=== PATIENT | male | born 1965 | race Two or more races ===

== ENCOUNTER 2016-11-04 09:29 | Inpatient (IN) | payer OTHER ==
[2016-11-04 11:01] VITALS: BMI 23.7
--- NOTE | 2016-11-04 13:47 | HP ---
COWS - Scale Resting Pulse: 0= [place] 80 or Below Sweatin= Chills/Flushing Restless Observation: 3= Extraneous Movement Pupil Size: 0= Normal to Room Light Bone or Joint Aches: 2= Severe Diffuse Aches Runny Nose/ Eye Tearin= Runny Nose/Eyes GI Upset > 30mins: 2= Nausea/Diarrhea Tremor Observation: 2= Slight Tremor Visible Yawning Observation: 2= >3x During Session Anxiety or Irritability: 2=Irritable/Anxious Goose Flesh Skin: 3=Piloerection COWS Score: 19 Admission ROS S - HPI Chief Complaint: "I need to get myself together. I am not good in health." Pt. is here to Detox from Heroin. Allergies/Adverse Reactions: Allergies Allergy/AdvReac Type Severity Reaction Status Date / Time penicillin G Allergy Severe Rash Verified 11/04/16 12:23 History of Present Illness: Pt. is a 51 YO male here to Detox from Heroin. Pt. had a previous Detox admission at [facility] approx. 10 years ago. Exam Limitations: No Limitations - Ebola screening Have you traveled outside of the country in the last 21 days: No Have you had contact with anyone from an Ebola affected area: No Have you been sick,other than usual withdrawal symptoms: No Do you have a fever: No - Review of Systems Constitutional: Chills, Diaphoresis, Fever, Loss of Appetite, Malaise, Night Sweats, Changes in sleep, Unintentional Wgt. Loss (Lost approx. 15 lbs. over the last 1 month.) EENT: reports: Tearing, Nose Congestion, Sinus Pressure, Dental Problems ( Missing Several Teeth.) Respiratory: reports: No Symptoms reported Cardiac: reports: No Symptoms Reported GI: reports: Diarrhea, Nausea, Poor Appetite, Vomiting, Indigestion : reports: No Symptoms Reported Musculoskeletal: reports: Back Pain, Joint Pain, Muscle Pain, Joint Stiffness, Other (Fractured Rib, Left Side, approx. 4 weeks ago, was evaluated at [facility] ER.) Integumentary: reports: No Symptoms Reported Neuro: reports: Headache, Numbness (Fingertips of Right Hand.), Tingling ( Fingertips of Right Hand.), Tremors Endocrine: reports: No Symptoms Reported Hematology: reports: No Symptoms Reported Psychiatric: reports: Judgement Intact, Mood/Affect Appropiate, Orientated x3, Anxious, Depressed (And Anxiety.) Other Systems: Reviewed and Negative Patient History - Patient Medical History Hx Anemia: No Hx Asthma: Yes (On meds.) Hx Chronic Obstructive Pulmonary Disease (COPD): Yes (Bronchitis; On meds.) Hx Cancer: No Hx Cardiac Disorders: No Hx Congestive Heart Failure: No Hx Hypertension: No Hx Hypercholesterolemia: Yes (In past. No medication.) Hx Pacemaker: No HX Cerebrovascular Accident: No Hx Seizures: No Hx Dementia: No Hx Diabetes: No Hx Gastrointestinal Disorders: No Hx Liver Disease: No Hx Genitourinary Disorders: No Hx Sexually Transmitted Disorders: No Hx Renal Disease (ESRD): No Hx Thyroid Disease: No Hx Human Immunodeficiency Virus (HIV): No (Last Tested: 07/2015: NEGATIVE.) Hx Hepatitis C: No (Last Tested: 07/2015: NEGATIVE.) Hx Depression: Yes (On meds.) Hx Suicide Attempt: No (PATIENT DENIES CURRENT SI / HI.) Hx Bipolar Disorder: Yes (On meds.) Hx Schizophrenia: No - Patient Surgical History Past Surgical History: No Hx Neurologic Surgery: No Hx Cataract Extraction: No Hx Cardiac Surgery: No Hx Lung Surgery: No Hx Breast Surgery: No Hx Breast Biopsy: No Hx Abdominal Surgery: No Hx Appendectomy: No Hx Cholecystectomy: No Hx Genitourinary Surgery: No Hx Section: No Hx Orthopedic Surgery: No Anesthesia Reaction: Yes - PPD History Previous Implant?: Yes Documented Results: Negative w/o proof Implanted On Prior [facility] Admission?: No PPD to be Administered?: Yes - Reproductive History Patient is a Female of Child Bearing Age (11 -55 yrs old): No (PATIENT IS MALE.) - Smoking Cessation Smoking history: Current every day smoker Have you smoked in the past 12 months: Yes Aproximately how many cigarettes per day: 5 Cigars Per Day: 0 Hx Chewing Tobacco Use: No Initiated information on smoking cessation: Yes 'Breaking Loose' booklet given: 11/04/16 (GIVEN ON UNIT.) - Substance & Tx. History Hx Alcohol Use: No Hx Substance Use: Yes Substance Use Type: Heroin, Tranquilizers Hx Substance Use Treatment: Yes (1 Previous Detox admission at [facility], approx. 10 years ago.) - Substances Abused Heroin Route: Inhalation Frequency: Daily Amount used: 7-10 bags Age of first use: 14 Date of Last Use: 11/04/16 Xanax Route: Oral Frequency: 1-2 times per week Amount used: 2 mg. Age of first use: 50 Date of Last Use: 10/31/16 Family Disease History - Family Disease History Family Disease History: Diabetes: Brother, CA: Father (Colon Ca.), Mother ( Colon Ca.) Admission Physical Exam BHS - Vital Signs Vital Signs: Vital Signs - 24 hr 11/04/16 11:00 Temperature 96.2 F L Pulse Rate 53 L Respiratory 18 Rate Blood Pressure 143/79 - Physical General Appearance: Yes: Appropriately Dressed, Mild Distress, Thin, Tremorous, Anxious HEENTM: Yes: Hearing grossly Normal, Normocephalic, Normal Voice, REZA, Pharynx Normal Respiratory: Yes: Chest Non-Tender, No Respiratory Distress, Wheezing Neck: Yes: No masses,lesions,Nodules, Supple, Trachea in good position Breast: Yes: Breast Exam Deferred Cardiology: Yes: Regular Rhythm, Regular Rate, S1, S2 Abdominal: Yes: Normal Bowel Sounds, Non Tender, Flat, Soft Genitourinary: Yes: Within Normal Limits Back: Yes: Decreased Range of Motion, Vertebral Tenderness Musculoskeletal: Yes: Gait Steady, Back pain, Joint Stiffness, Muscle Pain Extremities: Yes: Tremors Neurological: Yes: Fully Oriented, Alert, Normal Mood/Affect, Normal Response Integumentary: Yes: Normal Color, Warm Lymphatic: Yes: Within Normal Limits - Diagnostic (1) Opioid dependence with withdrawal Current Visit: Yes Status: Acute (2) Nicotine dependence Current Visit: Yes Status: Chronic Qualifiers: Nicotine product type: cigarettes Substance use status: uncomplicated Qualified Code(s): F17.210 - Nicotine dependence, cigarettes, uncomplicated (3) Xanax use disorder, mild Current Visit: Yes Status: Chronic (4) COPD with chronic bronchitis Current Visit: Yes Status: Chronic (5) Bipolar disorder Current Visit: Yes Status: Chronic Qualifiers: Active/Remission status: remission status unspecified Qualified Code (s): F31.9 - Bipolar disorder, unspecified (6) Left rib fracture Current Visit: Yes Status: Acute Qualifiers: Encounter type: subsequent encounter Rib fracture type: single rib Fracture type: closed Fracture healing: with routine healing Qualified Code(s): S22.32XD - Fracture of one rib, left side, subsequent encounter for fracture with routine healing Cleared for Admission [facility] - Detox or Rehab [facility] Level of Care: Medically Managed Detox Regimen/Protocol: Methadone [facility] Breath Alcohol Content Breath Alcohol Content: 0 Urine Drug Screen - Results Drug Screen Negative: No Urine Drug Screen Results: OPI-Opiates
[2016-11-04] MEDS ORDERED: ACETAMINOPHEN 325 MG TABLET (FP) PO PRN (14:28)
[2016-11-04] MEDS ORDERED: MENTHOL/PHENOL 1 EACH UD MM PRN (14:28)
[2016-11-04] MEDS ORDERED: guaiFENesin/D-METHORPHAN HB 10 ML UNIT-DOSE CUPS PO PRN (14:28)
[2016-11-04] MEDS ORDERED: MAGNESIUM HYDROX 2400MG/30ML ORAL SUSPENSION 30 ML CUP PO PRN (14:28)
[2016-11-04] MEDS ORDERED: P-EPHED 60MG/TRIPROLIDI 2.5MG TABLET PO PRN (14:28)
[2016-11-04] MEDS ORDERED: LOPERAMIDE HCL 2 MG CAPSULE PO PRN (14:28)
[2016-11-04] MEDS ORDERED: MAGNESIUM CITRATE 300 ML BOTTLE PO PRN (14:28)
[2016-11-04] MEDS ORDERED: METHADONE HCL 10 MG TABLET (FOR DETOX USE ONLY) PO ONE ×2 (15:15→23:00)
[2016-11-04] MEDS: diazePAM 5 MG TABLET PO PRN ×2 (15:19→22:05)
[2016-11-04 17:55] LABS: HIV 1 & 2 AB NEGATIVE; HIV 1 AGp24 NEGATIVE
[2016-11-04 21:15] LABS: URINE APPEARANCE CLEAR; URINE BILIRUBIN NEGATIVE (NEGATIVE); URINE BLOOD NEGATIVE (NEGATIVE); URINE COLOR YELLOW; URINE GLUCOSE (UA) NEGATIVE (NEGATIVE); URINE KETONE NEGATIVE (NEGATIVE); URINE LEUK ESTERASE NEGATIVE (NEGATIVE); URINE NITRITE NEGATIVE (NEGATIVE); URINE PROTEIN NEGATIVE (NEGATIVE); URINE UROBILINOGEN NEGATIVE E.U./dl (0.2-1.0)
[2016-11-04] MEDS: ACLIDINIUM BROMIDE 400 MCG/INH AERO.POWD IH SCH (22:05)
[2016-11-04] MEDS: THIAMINE HCL 100 MG TABLET (FP) PO SCH (22:05)
[2016-11-04] MEDS: ALBUTEROL SO4 6.7 GM HFA INHALER IH PRN (22:07)
[2016-11-04] MEDS: NAPROXEN 250 MG TABLET (FP) PO SCH (22:08)
[2016-11-04] MEDS: MAG HYDROX/AL HYDROX/SIMETH 30 ML UNIT-DOSE CUP PO PRN (22:32)
[2016-11-04] MEDS: NICOTINE POLACRILEX 2 MG GUM BC PRN (22:33)
[2016-11-05] MEDS: diphenhydrAMINE HCL 50 MG CAPSULE PO PRN ×2 (01:06→23:23)
[2016-11-05] MEDS: diazePAM 5 MG TABLET PO PRN ×3 (08:04→22:04)
[2016-11-05] MEDS: NAPROXEN 250 MG TABLET (FP) PO SCH ×3 (08:05→23:24)
[2016-11-05] MEDS ORDERED: METHADONE HCL 10 MG TABLET (FOR DETOX USE ONLY) PO ONE (10:00)
--- NOTE | 2016-11-05 10:04 | PN ---
[facility] CIWA - CIWA Score Nausea/Vomitin-No Nausea/No Vomiting Muscle Tremors: 4-Moderate,w/Arms Extend Anxiety: 4-Mod. Anxious/Guarded Agitation: 4-Moderately Restless Paroxysmal Sweats: 1-Minimal Palms Moist Orientation: 0-Oriented Tacttile Disturbances: 3-Moderate Itch/Numb/Burn Auditory Disturbances: 0-None Visual Disturbances: 0-None Headache: 0-None Present CIWA-Ar Total Score: 16 BHS Progress Note (SOAP) Subjective: ANXIETY, SWEATS,STOMACH CRAMP, INTERMITTENT SLEEP Objective: 11/05/16 10:03 Vital Signs Temperature 97.7 F 11/05/16 09:35 Pulse Rate 77 11/05/16 09:35 Respiratory Rate 18 11/05/16 09:35 Blood Pressure 119/80 11/05/16 09:35 O2 Sat by Pulse Oximetry (%) Laboratory Last Values Urine Color Yellow 11/04/16 20:52 Urine Appearance Clear 11/04/16 20:52 Urine pH 5.0 (5.0-8.0) 11/04/16 20:52 Ur Specific [place] 1.025 (1.005-1.025) 11/04/16 20:52 Urine Protein Negative (NEGATIVE) 11/04/16 20:52 Urine Glucose (UA) Negative (NEGATIVE) 11/04/16 20:52 Urine Ketones Negative (NEGATIVE) 11/04/16 20:52 Urine Blood Negative (NEGATIVE) 11/04/16 20:52 Urine Nitrite Negative (NEGATIVE) 11/04/16 20:52 Urine Bilirubin Negative (NEGATIVE) 11/04/16 20:52 Urine Urobilinogen Negative E.U./dl (0.2-1.0) 11/04/16 20:52 Ur Leukocyte Esterase Negative (NEGATIVE) 11/04/16 20:52 HIV 1&2 Antibody Screen Negative 11/04/16 13:40 HIV P24 Antigen Negative 11/04/16 13:40 Assessment: 11/05/16 10:03 WITHDRAWAL SX Plan: CONTINUE DETOX
[2016-11-05] MEDS: ACLIDINIUM BROMIDE 400 MCG/INH AERO.POWD IH SCH ×2 (10:05→22:06)
[2016-11-05] MEDS: NICOTINE POLACRILEX 2 MG GUM BC PRN ×2 (10:06→20:15)
[2016-11-05] MEDS: PRENATAL VITAMINS W/ FOLIC ACID TABLET (FP) PO SCH (10:06)
[2016-11-05 10:07] LABS: MCH 30.1 pg (25.7-33.7); MCHC 32.5 g/dl (32.0-35.9); MEAN CELL VOLUME 92.6 fl (80-96); MEAN PLT VOLUME 9.5 fl (7.5-11.1); PLATELET COUNT 221 K/MM3 (134-434); RDW 14.2 % (11.9-15.9); WHITE BLOOD COUNT 6.6 K/mm3 (4.0-10.0)
[2016-11-05 10:55] LABS: ALBUMIN 4.1 g/dl (3.4-5.0); ALK PHOS 76 U/L (45-117); ANION GAP 9 (8-16); BILIRUBIN,TOTAL 0.7 mg/dL (0.2-1.0); CALCIUM 9.3 mg/dL (8.5-10.1); CO2 29 mmol/L (21-32); COCKROFT - GAULT 103.52; CREATININE 0.9 mg/dL (0.7-1.3); GLUCOSE,RANDOM 88 mg/dL (74-106); SGOT/AST 17 U/L (15-37); SGPT/ALT 20 U/L (12-78); TOT PROT 6.8 g/dl (6.4-8.2)
--- NOTE | 2016-11-05 11:46 | EKG ---
Test Reason : Blood Pressure : / mmHG Vent. Rate : 051 BPM Atrial Rate : 051 BPM P-R Int : 158 ms QRS Dur : 094 ms QT Int : 434 ms P-R-T Axes : 073 068 073 degrees QTc Int : 400 ms SINUS BRADYCARDIA WITH SINUS ARRHYTHMIA OTHERWISE NORMAL ECG NO PREVIOUS ECGS AVAILABLE Confirmed by JULI COVARRUBIAS, ARIANA ([id number]) on 11/05/2016 11:45:30 AM Referred By: Confirmed By:ARIANA BUSTOS MD
--- NOTE | 2016-11-05 12:07 | CONSULT ---
[facility] Psychiatric Consult - Data Date of interview: 11/05/16 Admission source: [facility] Identifying data: Readmission to [facility] for this 51 y/o male seeking detox treatment for heroin and xanax dependence.Patient is ,a father of two,homeless,unemployed and reportedly deprived of any source of income. Substance Abuse History: - Smoking Cessation. Smoking history: Current every day smoker. Have you smoked in the past 12 months: Yes. Aproximately how many cigarettes per day: 5. Cigars Per Day: 0. Hx Chewing Tobacco Use: No. Initiated information on smoking cessation: Yes. 'Breaking Loose' booklet given : 11/04/16 (GIVEN ON UNIT.). - Substance & Tx. History. Hx Alcohol Use: No. Hx Substance Use: Yes. Substance Use Type: Heroin, Tranquilizers. Hx Substance Use Treatment: Yes (1 Previous Detox admission at [facility], approx. 10 years ago.). - Substances Abused. Heroin. Route: Inhalation. Frequency: Daily. Amount used: 7-10 bags. Age of first use: 14. Date of Last Use: . Xanax. Route: Oral. Frequency: 1-2 times per week. Amount used: 2 mg. Age of first use: 50. Date of Last Use: 10/31/16. Confirmed by patient. Medical History: Bronchial asthma,COPD and hypercholesterolemia. Psychiatric History: Diagnosed with MDD/Anxiety Disorder and maintained on lexapro 20 mg/day + seroquel 100 mg/hs.Patient sees a psychiatrist at [facility].Mr Marley denies history of psychiatric hospitalizations.No report of suicide attempts. Physical/Sexual Abuse/Trauma History: Patient denies. Additional Comment: Urine Drug Screen Results: OPI-Opiates.Noted. Mental Status Exam - Mental Status Exam Alert and Oriented to: Time, Place, Person Cognitive Function: Good Patient Appearance: Well Groomed Mood: Hopeful, Euthymic Affect: Appropriate, Normal Range Patient Behavior: Fatigued, Appropriate, Cooperative Speech Pattern: Clear Voice Loudness: Normal Thought Process: Goal Oriented Thought Disorder: Not Present Hallucinations: Denies Suicidal Ideation: Denies Homicidal Ideation: Denies Insight/Judgement: Poor Sleep: Poorly, Difficulty falling asleep Appetite: Good Muscle strength/Tone: Normal Gait/Station: Normal Psychiatric Findings - Problem List ([place] 1, 2,3) (1) Opioid dependence with withdrawal Current Visit: Yes Status: Acute (2) Nicotine dependence Current Visit: Yes Status: Acute Qualifiers: Nicotine product type: cigarettes Substance use status: uncomplicated Qualified Code(s): F17.210 - Nicotine dependence, cigarettes, uncomplicated (3) Benzodiazepine dependence Current Visit: Yes Status: Acute (4) Substance induced mood disorder Current Visit: Yes Status: Acute (5) Depressive disorder Current Visit: Yes Status: Chronic (6) Left rib fracture Current Visit: Yes Status: Acute Qualifiers: Encounter type: subsequent encounter Rib fracture type: single rib Fracture type: closed Fracture healing: with routine healing Qualified Code(s): S22.32XD - Fracture of one rib, left side, subsequent encounter for fracture with routine healing (7) COPD with chronic bronchitis Current Visit: Yes Status: Chronic (8) Insomnia Current Visit: Yes Status: Acute - Initial Treatment Plan Initial Treatment Plan: Psychoeducation.Detoxification.Medications : seroquel 100 mg po hs + lexapro 20 mg po daily.Side effects/benefits discussed with patient.He agrees with careplan.Observation.
[2016-11-05] MEDS: VITAMINS A AND D TOPICAL OINTMENT 60 GM TUBE TP SCH ×2 (15:18→22:05)
[2016-11-05] MEDS: MAG HYDROX/AL HYDROX/SIMETH 30 ML UNIT-DOSE CUP PO PRN (17:11)
[2016-11-05] MEDS: THIAMINE HCL 100 MG TABLET (FP) PO SCH (22:05)
[2016-11-06] MEDS: diazePAM 5 MG TABLET PO PRN ×4 (03:21→22:26)
[2016-11-06] MEDS: NAPROXEN 250 MG TABLET (FP) PO SCH ×4 (05:24→22:28)
[2016-11-06] MEDS: NICOTINE POLACRILEX 2 MG GUM BC PRN ×4 (05:42→23:08)
[2016-11-06] MEDS ORDERED: CYCLOBENZAPRINE HCL 10 MG TABLET (FP) PO ONE (09:41)
--- NOTE | 2016-11-06 09:47 | PN ---
S COWS - Scale Resting Pulse: 0= [place] 80 or Below Sweatin= Chills/Flushing Restless Observation: 3= Extraneous Movement Pupil Size: 1= Pupils >than Normal Bone or Joint Aches: 2= Severe Diffuse Aches Runny Nose/ Eye Tearin= Nasal Congestion GI Upset > 30mins: 3= Vomiting/Diarrhea Tremor Observation of Outstretched Hands: 2= Slight Tremor Visible Yawning Observation: 1= 1-2x During Session Anxiety or Irritability: 2=Irritable/Anxious Goose Flesh Skin: 0=Smooth Skin COWS Score: 16 BHS Progress Note (SOAP) Subjective: ALERT,IRRITABLE,ANXIOUS,INTERRUPTED SLEEP,TREMOR,PAIN IN THE BODY AND BACK Objective: 11/06/16 09:45 Vital Signs Temperature 97.9 F 11/06/16 09:21 Pulse Rate 62 11/06/16 09:21 Respiratory Rate 18 11/06/16 09:21 Blood Pressure 134/84 11/06/16 09:21 O2 Sat by Pulse Oximetry (%) 11/06/16 09:47 Laboratory Last Values WBC 6.6 K/mm3 (4.0-10.0) 11/05/16 06:00 RBC 4.40 M/mm3 (4.00-5.60) 11/05/16 06:00 Hgb 13.2 GM/dL (11.7-16.9) 11/05/16 06:00 Hct 40.7 % (35.4-49) 11/05/16 06:00 MCV 92.6 fl (80-96) 11/05/16 06:00 MCHC 32.5 g/dl (32.0-35.9) 11/05/16 06:00 RDW 14.2 % (11.9-15.9) 11/05/16 06:00 Plt Count 221 K/MM3 (134-434) 11/05/16 06:00 MPV 9.5 fl (7.5-11.1) 11/05/16 06:00 Sodium 143 mmol/L (136-145) 11/05/16 06:00 Potassium 4.2 mmol/L (3.5-5.1) 11/05/16 06:00 Chloride 105 mmol/L (98-107) 11/05/16 06:00 Carbon Dioxide 29 mmol/L (21-32) 11/05/16 06:00 Anion Gap 9 (8-16) 11/05/16 06:00 BUN 16 mg/dL (7-18) 11/05/16 06:00 Creatinine 0.9 mg/dL (0.7-1.3) 11/05/16 06:00 Creat Clearance w eGFR > 60 (>60) 11/05/16 06:00 Random Glucose 88 mg/dL (74-106) 11/05/16 06:00 Calcium 9.3 mg/dL (8.5-10.1) 11/05/16 06:00 Total Bilirubin 0.7 mg/dL (0.2-1.0) 11/05/16 06:00 AST 17 U/L (15-37) 11/05/16 06:00 ALT 20 U/L (12-78) 11/05/16 06:00 Alkaline Phosphatase 76 U/L (45-117) 11/05/16 06:00 Total Protein 6.8 g/dl (6.4-8.2) 11/05/16 06:00 Albumin 4.1 g/dl (3.4-5.0) 11/05/16 06:00 Urine Color Yellow 11/04/16 20:52 Urine Appearance Clear 11/04/16 20:52 Urine pH 5.0 (5.0-8.0) 11/04/16 20:52 Ur Specific [place] 1.025 (1.005-1.025) 11/04/16 20:52 Urine Protein Negative (NEGATIVE) 11/04/16 20:52 Urine Glucose (UA) Negative (NEGATIVE) 11/04/16 20:52 Urine Ketones Negative (NEGATIVE) 11/04/16 20:52 Urine Blood Negative (NEGATIVE) 11/04/16 20:52 Urine Nitrite Negative (NEGATIVE) 11/04/16 20:52 Urine Bilirubin Negative (NEGATIVE) 11/04/16 20:52 Urine Urobilinogen Negative E.U./dl (0.2-1.0) 11/04/16 20:52 Ur Leukocyte Esterase Negative (NEGATIVE) 11/04/16 20:52 RPR Titer Nonreactive (NONREACTIVE) 11/05/16 06:00 Hepatitis C Antibody <0.1 s/co ratio (0.0-0.9) 11/04/16 14:30 HIV 1&2 Antibody Screen Negative 11/04/16 13:40 HIV P24 Antigen Negative 11/04/16 13:40 Assessment: 11/06/16 09:46 WITHDRAWAL SYMPTOM 11/06/16 09:47 Plan: CONTINUE DETOX
[2016-11-06] MEDS ORDERED: METHADONE HCL 5 MG TABLET (FOR DETOX USE ONLY) PO ONE (10:00)
[2016-11-06] MEDS: PRENATAL VITAMINS W/ FOLIC ACID TABLET (FP) PO SCH (10:11)
[2016-11-06] MEDS: ACLIDINIUM BROMIDE 400 MCG/INH AERO.POWD IH SCH ×2 (10:11→22:27)
[2016-11-06] MEDS: VITAMINS A AND D TOPICAL OINTMENT 60 GM TUBE TP SCH ×2 (10:11→22:27)
[2016-11-06] MEDS: cloNIDine HCL 0.1 MG TABLET PO SCH ×2 (10:11→22:26)
[2016-11-06] MEDS: ALBUTEROL SO4 6.7 GM HFA INHALER IH PRN (10:12)
[2016-11-06] MEDS: LIDOCAINE 5% TOPICAL PATCH TP SCH (12:31)
[2016-11-06] MEDS: ESCITALOPRAM OXALATE 20 MG TABLET (FP) PO SCH (12:31)
[2016-11-06] MEDS: QUEtiapine FUMARATE 100 MG TABLET (FP) PO SCH (22:26)
[2016-11-06] MEDS: THIAMINE HCL 100 MG TABLET (FP) PO SCH (22:27)
[2016-11-06] MEDS: LIDOCAINE PATCH REMOVAL MC SCH (22:29)
[2016-11-07] MEDS: NAPROXEN 250 MG TABLET (FP) PO SCH ×3 (05:56→22:15)
[2016-11-07] MEDS ORDERED: METHADONE HCL 5 MG TABLET (FOR DETOX USE ONLY) PO ONE (10:00)
[2016-11-07] MEDS: cloNIDine HCL 0.1 MG TABLET PO SCH ×2 (10:05→22:16)
[2016-11-07] MEDS: ESCITALOPRAM OXALATE 20 MG TABLET (FP) PO SCH (10:05)
[2016-11-07] MEDS: LIDOCAINE 5% TOPICAL PATCH TP SCH (10:06)
[2016-11-07] MEDS: ACLIDINIUM BROMIDE 400 MCG/INH AERO.POWD IH SCH ×2 (10:06→22:16)
[2016-11-07] MEDS: VITAMINS A AND D TOPICAL OINTMENT 60 GM TUBE TP SCH ×2 (10:06→22:16)
[2016-11-07] MEDS: PRENATAL VITAMINS W/ FOLIC ACID TABLET (FP) PO SCH (10:06)
[2016-11-07] MEDS: ALBUTEROL SO4 6.7 GM HFA INHALER IH PRN (10:09)
[2016-11-07] MEDS: NICOTINE POLACRILEX 2 MG GUM BC PRN ×2 (10:09→14:58)
--- NOTE | 2016-11-07 11:20 | PN ---
BHS Progress Note (SOAP) Subjective: Anxious, Body aches, Stomach Cramping, Diarrhea, Tremors, H/A, Sweating. Objective: PT. A & O X 2 (DISORIENTED ABOUT DAY / DATE). PT. OBSERVED AMBULATING ON UNIT. 11/07/16 11:19 Vital Signs Temperature 98.9 F 11/07/16 09:04 Pulse Rate 54 L 11/07/16 09:04 Respiratory Rate 18 11/07/16 09:04 Blood Pressure 114/70 11/07/16 09:04 O2 Sat by Pulse Oximetry (%) Laboratory Tests 11/04/16 11/04/16 11/04/16 13:40 14:30 20:52 WBC RBC Hgb Hct MCV MCHC RDW Plt Count MPV Sodium Potassium Chloride Carbon Dioxide Anion Gap BUN Creatinine Creat Clearance w eGFR Random Glucose Calcium Total Bilirubin AST ALT Alkaline Phosphatase Total Protein Albumin Urine Color Yellow Urine Appearance Clear Urine pH 5.0 Ur Specific [place] 1.025 Urine Protein Negative Urine Glucose (UA) Negative Urine Ketones Negative Urine Blood Negative Urine Nitrite Negative Urine Bilirubin Negative Urine Urobilinogen Negative Ur Leukocyte Esterase Negative RPR Titer Hepatitis C Antibody <0.1 HIV 1&2 Antibody Screen Negative HIV P24 Antigen Negative 11/05/16 11/05/16 11/05/16 06:00 06:00 06:00 WBC 6.6 RBC 4.40 Hgb 13.2 Hct 40.7 MCV 92.6 MCHC 32.5 RDW 14.2 Plt Count 221 MPV 9.5 Sodium 143 Potassium 4.2 Chloride 105 Carbon Dioxide 29 Anion Gap 9 BUN 16 Creatinine 0.9 Creat Clearance w eGFR > 60 Random Glucose 88 Calcium 9.3 Total Bilirubin 0.7 AST 17 ALT 20 Alkaline Phosphatase 76 Total Protein 6.8 Albumin 4.1 Urine Color Urine Appearance Urine pH Ur Specific [place] Urine Protein Urine Glucose (UA) Urine Ketones Urine Blood Urine Nitrite Urine Bilirubin Urine Urobilinogen Ur Leukocyte Esterase RPR Titer Nonreactive Hepatitis C Antibody HIV 1&2 Antibody Screen HIV P24 Antigen LABS NOTED. Assessment: 11/07/16 11:19 WITHDRAWAL SYMPTOMS. Plan: CONTINUE DETOX.
[2016-11-07] MEDS: TETRAHYDROZOLINE HCL 1 DROP DROPS OU PRN ×3 (12:32→22:16)
[2016-11-07] MEDS: THIAMINE HCL 100 MG TABLET (FP) PO SCH (22:15)
[2016-11-07] MEDS: QUEtiapine FUMARATE 100 MG TABLET (FP) PO SCH (22:16)
[2016-11-07] MEDS: CYCLOBENZAPRINE HCL 10 MG TABLET (FP) PO PRN (22:16)
[2016-11-07] MEDS: LIDOCAINE PATCH REMOVAL MC SCH (22:17)
[2016-11-08] MEDS: NAPROXEN 250 MG TABLET (FP) PO SCH ×3 (05:46→22:11)
[2016-11-08] MEDS ORDERED: METHADONE HCL 10 MG TABLET (FOR DETOX USE ONLY) PO ONE (10:00)
[2016-11-08] MEDS: ACLIDINIUM BROMIDE 400 MCG/INH AERO.POWD IH SCH ×2 (10:11→22:13)
[2016-11-08] MEDS: TETRAHYDROZOLINE HCL 1 DROP DROPS OU PRN ×2 (10:11→22:12)
[2016-11-08] MEDS: VITAMINS A AND D TOPICAL OINTMENT 60 GM TUBE TP SCH ×2 (10:11→22:21)
[2016-11-08] MEDS: cloNIDine HCL 0.1 MG TABLET PO SCH ×2 (10:12→22:11)
[2016-11-08] MEDS: PRENATAL VITAMINS W/ FOLIC ACID TABLET (FP) PO SCH (10:12)
[2016-11-08] MEDS: ESCITALOPRAM OXALATE 20 MG TABLET (FP) PO SCH (10:12)
[2016-11-08] MEDS: LIDOCAINE 5% TOPICAL PATCH TP SCH (10:15)
[2016-11-08] MEDS ORDERED: ONDANSETRON *ODT* 4 MG TABLET SL PRN (10:30)
[2016-11-08] MEDS ORDERED: ONDANSETRON *ODT* 4 MG TABLET SL ONE (10:30)
--- NOTE | 2016-11-08 10:35 | PN ---
S Progress Note (SOAP) Subjective: C/O nausea and vomited earlier Objective: 11/08/16 10:33 Vital Signs - 8 hr 11/08/16 11/08/16 11/08/16 03:30 06:12 09:15 Temperature 97 F L 97.5 F L Pulse Rate 48 L 64 Respiratory 18 16 18 Rate Blood Pressure 123/75 112/73 Laboratory Last Values WBC 6.6 K/mm3 (4.0-10.0) 11/05/16 06:00 RBC 4.40 M/mm3 (4.00-5.60) 11/05/16 06:00 Hgb 13.2 GM/dL (11.7-16.9) 11/05/16 06:00 Hct 40.7 % (35.4-49) 11/05/16 06:00 MCV 92.6 fl (80-96) 11/05/16 06:00 MCHC 32.5 g/dl (32.0-35.9) 11/05/16 06:00 RDW 14.2 % (11.9-15.9) 11/05/16 06:00 Plt Count 221 K/MM3 (134-434) 11/05/16 06:00 MPV 9.5 fl (7.5-11.1) 11/05/16 06:00 Sodium 143 mmol/L (136-145) 11/05/16 06:00 Potassium 4.2 mmol/L (3.5-5.1) 11/05/16 06:00 Chloride 105 mmol/L (98-107) 11/05/16 06:00 Carbon Dioxide 29 mmol/L (21-32) 11/05/16 06:00 Anion Gap 9 (8-16) 11/05/16 06:00 BUN 16 mg/dL (7-18) 11/05/16 06:00 Creatinine 0.9 mg/dL (0.7-1.3) 11/05/16 06:00 Creat Clearance w eGFR > 60 (>60) 11/05/16 06:00 Random Glucose 88 mg/dL (74-106) 11/05/16 06:00 Calcium 9.3 mg/dL (8.5-10.1) 11/05/16 06:00 Total Bilirubin 0.7 mg/dL (0.2-1.0) 11/05/16 06:00 AST 17 U/L (15-37) 11/05/16 06:00 ALT 20 U/L (12-78) 11/05/16 06:00 Alkaline Phosphatase 76 U/L (45-117) 11/05/16 06:00 Total Protein 6.8 g/dl (6.4-8.2) 11/05/16 06:00 Albumin 4.1 g/dl (3.4-5.0) 11/05/16 06:00 Urine Color Yellow 11/04/16 20:52 Urine Appearance Clear 11/04/16 20:52 Urine pH 5.0 (5.0-8.0) 11/04/16 20:52 Ur Specific [place] 1.025 (1.005-1.025) 11/04/16 20:52 Urine Protein Negative (NEGATIVE) 11/04/16 20:52 Urine Glucose (UA) Negative (NEGATIVE) 11/04/16 20:52 Urine Ketones Negative (NEGATIVE) 11/04/16 20:52 Urine Blood Negative (NEGATIVE) 11/04/16 20:52 Urine Nitrite Negative (NEGATIVE) 11/04/16 20:52 Urine Bilirubin Negative (NEGATIVE) 11/04/16 20:52 Urine Urobilinogen Negative E.U./dl (0.2-1.0) 11/04/16 20:52 Ur Leukocyte Esterase Negative (NEGATIVE) 11/04/16 20:52 RPR Titer Nonreactive (NONREACTIVE) 11/05/16 06:00 Hepatitis C Antibody <0.1 s/co ratio (0.0-0.9) 11/04/16 14:30 HIV 1&2 Antibody Screen Negative 11/04/16 13:40 HIV P24 Antigen Negative 11/04/16 13:40 labs noted Assessment: 11/08/16 10:34 Withdrawal sx. Plan: Continue detox
[2016-11-08] MEDS: NICOTINE POLACRILEX 2 MG GUM BC PRN (18:58)
[2016-11-08] MEDS: THIAMINE HCL 100 MG TABLET (FP) PO SCH (22:10)
[2016-11-08] MEDS: QUEtiapine FUMARATE 100 MG TABLET (FP) PO SCH (22:11)
[2016-11-08] MEDS: CYCLOBENZAPRINE HCL 10 MG TABLET (FP) PO PRN (22:11)
[2016-11-08] MEDS: LIDOCAINE PATCH REMOVAL MC SCH (22:13)
[2016-11-09] MEDS ORDERED: METHADONE HCL 5 MG TABLET (FOR DETOX USE ONLY) PO ONE (06:00)
[2016-11-09] MEDS: MAG HYDROX/AL HYDROX/SIMETH 30 ML UNIT-DOSE CUP PO PRN (06:04)
[2016-11-09] MEDS: PRENATAL VITAMINS W/ FOLIC ACID TABLET (FP) PO SCH (10:11)
[2016-11-09] MEDS: ACLIDINIUM BROMIDE 400 MCG/INH AERO.POWD IH SCH (10:11)
[2016-11-09] MEDS: cloNIDine HCL 0.1 MG TABLET PO SCH (10:12)
[2016-11-09] MEDS: LIDOCAINE 5% TOPICAL PATCH TP SCH (10:12)
[2016-11-09] MEDS: ESCITALOPRAM OXALATE 20 MG TABLET (FP) PO SCH (10:12)
[2016-11-09] MEDS: VITAMINS A AND D TOPICAL OINTMENT 60 GM TUBE TP SCH (10:13)
[2016-11-09 10:17] VITALS: BP 107/67; PULSE 66; TEMP 97.8
--- NOTE | 2016-11-09 10:28 | DS ---
[facility] Detox Discharge Summary Admission Date: 11/04/16 Discharge Date: 11/09/16 - History Present History: Alcohol Dependence, Opioid Dependence Pertinent Past History: COPD w/ chronic bronchitis, left rib fracture - Physical Exam Results Vital Signs: Vital Signs Temperature 97.8 F 11/09/16 10:16 Pulse Rate 66 11/09/16 10:16 Respiratory Rate 18 11/09/16 10:16 Blood Pressure 107/67 11/09/16 10:16 O2 Sat by Pulse Oximetry (%) Pertinent Admission Physical Exam Findings: withdrawal sx Laboratory Last Values WBC 6.6 K/mm3 (4.0-10.0) 11/05/16 06:00 RBC 4.40 M/mm3 (4.00-5.60) 11/05/16 06:00 Hgb 13.2 GM/dL (11.7-16.9) 11/05/16 06:00 Hct 40.7 % (35.4-49) 11/05/16 06:00 MCV 92.6 fl (80-96) 11/05/16 06:00 MCHC 32.5 g/dl (32.0-35.9) 11/05/16 06:00 RDW 14.2 % (11.9-15.9) 11/05/16 06:00 Plt Count 221 K/MM3 (134-434) 11/05/16 06:00 MPV 9.5 fl (7.5-11.1) 11/05/16 06:00 Sodium 143 mmol/L (136-145) 11/05/16 06:00 Potassium 4.2 mmol/L (3.5-5.1) 11/05/16 06:00 Chloride 105 mmol/L (98-107) 11/05/16 06:00 Carbon Dioxide 29 mmol/L (21-32) 11/05/16 06:00 Anion Gap 9 (8-16) 11/05/16 06:00 BUN 16 mg/dL (7-18) 11/05/16 06:00 Creatinine 0.9 mg/dL (0.7-1.3) 11/05/16 06:00 Creat Clearance w eGFR > 60 (>60) 11/05/16 06:00 Random Glucose 88 mg/dL (74-106) 11/05/16 06:00 Calcium 9.3 mg/dL (8.5-10.1) 11/05/16 06:00 Total Bilirubin 0.7 mg/dL (0.2-1.0) 11/05/16 06:00 AST 17 U/L (15-37) 11/05/16 06:00 ALT 20 U/L (12-78) 11/05/16 06:00 Alkaline Phosphatase 76 U/L (45-117) 11/05/16 06:00 Total Protein 6.8 g/dl (6.4-8.2) 11/05/16 06:00 Albumin 4.1 g/dl (3.4-5.0) 11/05/16 06:00 Urine Color Yellow 11/04/16 20:52 Urine Appearance Clear 11/04/16 20:52 Urine pH 5.0 (5.0-8.0) 11/04/16 20:52 Ur Specific [place] 1.025 (1.005-1.025) 11/04/16 20:52 Urine Protein Negative (NEGATIVE) 11/04/16 20:52 Urine Glucose (UA) Negative (NEGATIVE) 11/04/16 20:52 Urine Ketones Negative (NEGATIVE) 11/04/16 20:52 Urine Blood Negative (NEGATIVE) 11/04/16 20:52 Urine Nitrite Negative (NEGATIVE) 11/04/16 20:52 Urine Bilirubin Negative (NEGATIVE) 11/04/16 20:52 Urine Urobilinogen Negative E.U./dl (0.2-1.0) 11/04/16 20:52 Ur Leukocyte Esterase Negative (NEGATIVE) 11/04/16 20:52 RPR Titer Nonreactive (NONREACTIVE) 11/05/16 06:00 Hepatitis C Antibody <0.1 s/co ratio (0.0-0.9) 11/04/16 14:30 HIV 1&2 Antibody Screen Negative 11/04/16 13:40 HIV P24 Antigen Negative 11/04/16 13:40 labs noted - Treatment Hospital Course: Detox Protocol Followed, Detoxed Safely, Responded well, Discharged Condition Good - Medication Discharge Medications: Ambulatory Orders Albuterol Sulfate Inhaler - [Ventolin Hfa Inhaler -] 2 inh PO Q4H PRN 11/04/16 Escitalopram Oxalate [Lexapro -] 20 mg PO DAILY 11/04/16 Ipratropium [place] [Atrovent Hfa] 1 inh IH BID 11/04/16 Naproxen [Naprosyn -] 250 mg PO TID 11/04/16 Quetiapine Fumarate [Seroquel] 100 mg PO HS 11/04/16 - Diagnosis (1) Benzodiazepine dependence Current Visit: Yes Status: Acute (2) Nicotine dependence Current Visit: Yes Status: Acute Qualifiers: Nicotine product type: cigarettes Substance use status: uncomplicated Qualified Code(s): F17.210 - Nicotine dependence, cigarettes, uncomplicated (3) Opioid dependence with withdrawal Current Visit: Yes Status: Acute (4) Substance induced mood disorder Current Visit: Yes Status: Acute (5) Bipolar disorder Current Visit: Yes Status: Chronic Qualifiers: Active/Remission status: remission status unspecified Qualified Code (s): F31.9 - Bipolar disorder, unspecified (6) COPD with chronic bronchitis Current Visit: Yes Status: Chronic (7) Depressive disorder Current Visit: Yes Status: Chronic - AMA Did Patient Leave Against Medical Advice: No
== END 2016-11-09 11:00 | disposition other institution (70) | DRG 773 ==
LOC: YASAS 09:29 → Y3N 14:13
PROVIDERS: ADMIT Internal Medicine; ATTEND Internal Medicine
PROC: HZ2ZZZZ Detoxification Services for Substance Abuse Treatment (ICD-10-PCS; principal; 2016-11-04)
DX: F11.23 Opioid dependence with withdrawal (principal); F13.20 Sedative, hypnotic or anxiolytic dependence, uncomplicated; F17.210 Nicotine dependence, cigarettes, uncomplicated; F19.24 Other psychoactive substance dependence with psychoactive substance-induced mood disorder; F32.9 Major depressive disorder, single episode, unspecified; F31.9 Bipolar disorder, unspecified; J45.909 Unspecified asthma, uncomplicated; J44.9 Chronic obstructive pulmonary disease, unspecified; G47.00 Insomnia, unspecified; Z87.81 Personal history of (healed) traumatic fracture; Z59.0 Homelessness
CPT/HCPCS: 36415; 80053; 81003; 85027; 86593; 86803; 87389; 93005; 93010

== ENCOUNTER 2016-11-09 11:05 | Inpatient (IN) | payer OTHER ==
[2016-11-09] MEDS ORDERED: hydrOXYzine PAMOATE 50 MG CAPSULE (FP) PO PRN (15:00)
[2016-11-09] MEDS ORDERED: MAGNESIUM HYDROX 2400MG/30ML ORAL SUSPENSION 30 ML CUP PO PRN (15:00)
[2016-11-09] MEDS ORDERED: MAGNESIUM CITRATE 300 ML BOTTLE PO PRN (15:00)
[2016-11-09] MEDS ORDERED: IBUPROFEN 400 MG TABLET (FP) PO PRN (15:00)
[2016-11-09] MEDS ORDERED: ACETAMINOPHEN 325 MG TABLET (FP) PO PRN (15:00)
[2016-11-09] MEDS ORDERED: diphenhydrAMINE HCL 50 MG CAPSULE PO PRN (15:00)
[2016-11-09] MEDS ORDERED: guaiFENesin/D-METHORPHAN HB 10 ML UNIT-DOSE CUPS PO PRN (15:00)
[2016-11-09] MEDS ORDERED: P-EPHED 60MG/TRIPROLIDI 2.5MG TABLET PO PRN (15:00)
[2016-11-09] MEDS ORDERED: MENTHOL/PHENOL 1 EACH UD MM PRN (15:00)
[2016-11-09] MEDS ORDERED: ALBUTEROL SO4 6.7 GM HFA INHALER IH PRN (15:01)
[2016-11-09] MEDS: ESCITALOPRAM OXALATE 20 MG TABLET (FP) PO SCH (15:04)
[2016-11-09] MEDS ORDERED: PT OWN MED DRAWER 7, Y5N ONE (20:05)
[2016-11-09] MEDS: QUEtiapine FUMARATE 100 MG TABLET (FP) PO SCH (21:37)
[2016-11-09] MEDS: THIAMINE HCL 100 MG TABLET (FP) PO SCH (21:37)
[2016-11-09] MEDS: BUDESONIDE/FORMETEROL FUMARATE 160/4.5 mcg INHALER IH SCH (21:38)
[2016-11-09] MEDS: NAPROXEN 250 MG TABLET (FP) PO SCH (21:42)
[2016-11-09] MEDS: MAG HYDROX/AL HYDROX/SIMETH 30 ML UNIT-DOSE CUP PO PRN (23:54)
[2016-11-10] MEDS: NAPROXEN 250 MG TABLET (FP) PO SCH (06:03)
[2016-11-10] MEDS ORDERED: PT OWN MED DRAWER 7, Y5N ONE (09:23)
[2016-11-10] MEDS: PRENATAL VITAMINS W/ FOLIC ACID TABLET (FP) PO SCH (10:12)
[2016-11-10] MEDS: ESCITALOPRAM OXALATE 20 MG TABLET (FP) PO SCH (10:12)
[2016-11-10] MEDS: NICOTINE POLACRILEX 4 MG GUM BUC PRN (10:13)
[2016-11-10] MEDS: BUDESONIDE/FORMETEROL FUMARATE 160/4.5 mcg INHALER IH SCH ×2 (13:01→21:41)
[2016-11-10] MEDS ORDERED: NAPROXEN 500 MG TABLET (FP) PO ONE (13:29)
[2016-11-10] MEDS: LIDOCAINE 5% TOPICAL PATCH TP SCH (13:52)
[2016-11-10] MEDS: THIAMINE HCL 100 MG TABLET (FP) PO SCH (21:38)
[2016-11-10] MEDS: QUEtiapine FUMARATE 100 MG TABLET (FP) PO SCH (21:39)
[2016-11-10] MEDS: NAPROXEN 500 MG TABLET (FP) PO SCH (21:39)
[2016-11-10] MEDS: cloNIDine HCL 0.1 MG TABLET PO PRN (21:39)
[2016-11-10] MEDS: LIDOCAINE PATCH REMOVAL MC SCH (22:24)
[2016-11-11] MEDS ORDERED: PT OWN MED DRAWER 7, Y5N ONE ×2 (08:36→14:11)
[2016-11-11] MEDS: NAPROXEN 500 MG TABLET (FP) PO SCH ×2 (10:27→21:35)
[2016-11-11] MEDS: ESCITALOPRAM OXALATE 20 MG TABLET (FP) PO SCH (10:27)
[2016-11-11] MEDS: PRENATAL VITAMINS W/ FOLIC ACID TABLET (FP) PO SCH (10:27)
[2016-11-11] MEDS: cloNIDine HCL 0.1 MG TABLET PO PRN ×2 (10:28→20:17)
[2016-11-11] MEDS: LIDOCAINE 5% TOPICAL PATCH TP SCH (10:28)
[2016-11-11] MEDS: NICOTINE POLACRILEX 4 MG GUM BUC PRN ×2 (10:29→20:17)
[2016-11-11] MEDS: BUDESONIDE/FORMETEROL FUMARATE 160/4.5 mcg INHALER IH SCH ×2 (10:29→21:36)
[2016-11-11] MEDS: THIAMINE HCL 100 MG TABLET (FP) PO SCH (21:35)
[2016-11-11] MEDS: QUEtiapine FUMARATE 100 MG TABLET (FP) PO SCH (21:36)
[2016-11-11] MEDS: LIDOCAINE PATCH REMOVAL MC SCH (21:37)
[2016-11-12] MEDS: PRENATAL VITAMINS W/ FOLIC ACID TABLET (FP) PO SCH (09:50)
[2016-11-12] MEDS: NAPROXEN 500 MG TABLET (FP) PO SCH ×2 (09:50→21:39)
[2016-11-12] MEDS: ESCITALOPRAM OXALATE 20 MG TABLET (FP) PO SCH (09:51)
[2016-11-12] MEDS: BUDESONIDE/FORMETEROL FUMARATE 160/4.5 mcg INHALER IH SCH ×2 (09:51→21:39)
[2016-11-12] MEDS: LIDOCAINE 5% TOPICAL PATCH TP SCH (09:56)
[2016-11-12] MEDS: NICOTINE POLACRILEX 4 MG GUM BUC PRN (09:57)
[2016-11-12] MEDS: cloNIDine HCL 0.1 MG TABLET PO PRN ×2 (12:47→21:39)
[2016-11-12] MEDS ORDERED: COLLOIDAL OATMEAL 1 BAR EACH TP PRN (13:27)
--- NOTE | 2016-11-12 17:29 | HP ---
Psychiatrist Admission - Data Date of interview: 11/12/16 Admission source: Transfer from [address] [place] [address] Identifying data: Case of a 51 y/o male seeking rehabilitation treatment,at [address],for heroin and xanax dependence.Patient is ,a father of two,homeless,unemployed and reportedly deprived of any source of income. Medical History: Bronchial asthma,COPD and hypercholesterolemia. Psychiatric History: Diagnosed with MDD/Anxiety Disorder and maintained on lexapro 20 mg/day + seroquel 100 mg/hs.Patient sees a psychiatrist at [facility].Mr Marley denies history of psychiatric hospitalizations.No report of suicide attempts. Physical/Sexual Abuse/Trauma History: Patient denies. Additional Comment: Urine Drug Screen Results: OPI-Opiates.Noted on admission to [address] [place] [address] (11/05/16). - Smoking Cessation. Smoking history: Current every day smoker. Have you smoked in the past 12 months: Yes. Aproximately how many cigarettes per day: 5. Cigars Per Day: 0. Hx Chewing Tobacco Use: No. Initiated information on smoking cessation: Yes. 'Breaking Loose' booklet given : 11/04/16 (GIVEN ON UNIT.). - Substance & Tx. History. Hx Alcohol Use: No. Hx Substance Use: Yes. Substance Use Type: Heroin, Tranquilizers. Hx Substance Use Treatment: Yes (1 Previous Detox admission at [facility], approx. 10 years ago.). - Substances Abused. Heroin. Route: Inhalation. Frequency: Daily. Amount used: 7-10 bags. Age of first use: 14. Date of Last Use: . Xanax. Route: Oral. Frequency: 1-2 times per week. Amount used: 2 mg. Age of first use: 50. Date of Last Use: 10/31/16. Re-confirmed by patient. Vital Signs: Vital Signs - 24 hr 11/11/16 11/12/16 11/12/16 20:16 00:30 03:30 Temperature Pulse Rate 60 Respiratory 16 16 Rate Blood Pressure 129/89 11/12/16 07:14 Temperature 97.6 F Pulse Rate 56 L Respiratory 16 Rate Blood Pressure 126/73 Allergies/Adverse Reactions: Allergies Allergy/AdvReac Type Severity Reaction Status Date / Time penicillin G Allergy Severe Rash Verified 11/04/16 12:23 - Substance Abuse/Tx History Hx Alcohol Use: No Hx Substance Use: Yes Substance Use Type: Heroin, Tranquilizers Hx Substance Use Treatment: Yes - Admission Criteria Previous failed treatment: Yes Poor recovery environment: Yes Comorbidities: Yes Lacks judgement: Yes Mental Status Exam - Mental Status Exam Alert and Oriented to: Time, Place, Person Cognitive Function: Good Patient Appearance: Well Groomed Mood: Hopeful, Euthymic Affect: Appropriate, Normal Range Patient Behavior: Appropriate, Cooperative Speech Pattern: Clear Voice Loudness: Normal Thought Process: Goal Oriented Thought Disorder: Not Present Hallucinations: Denies Suicidal Ideation: Denies Homicidal Ideation: Denies Insight/Judgement: Fair Sleep: Fair Appetite: Good Muscle strength/Tone: Normal Gait/Station: Normal Psychiatric Findings - Problem List ([place] 1, 2,3) (1) Depressive disorder Current Visit: Yes Status: Chronic (2) Opioid dependence Current Visit: Yes Status: Acute (3) Benzodiazepine dependence Current Visit: Yes Status: Acute (4) Nicotine dependence Current Visit: Yes Status: Acute Qualifiers: Nicotine product type: cigarettes Substance use status: uncomplicated Qualified Code(s): F17.210 - Nicotine dependence, cigarettes, uncomplicated (5) Substance induced mood disorder Current Visit: Yes Status: Acute (6) COPD with chronic bronchitis Current Visit: Yes Status: Chronic (7) Insomnia Current Visit: Yes Status: Acute - Initial Treatment Plan Initial Treatment Plan: Psychoeducation is initiated.Support.Medications : seroquel 100 mg po hs + celexa 20 mg po daily.Side effects/benefits of theses medications are discussed with the patient.He agrees with this careplan.Observation.
[2016-11-12] MEDS: CYCLOBENZAPRINE HCL 10 MG TABLET (FP) PO PRN (20:42)
[2016-11-12] MEDS: QUEtiapine FUMARATE 100 MG TABLET (FP) PO SCH (21:38)
[2016-11-12] MEDS: THIAMINE HCL 100 MG TABLET (FP) PO SCH (21:38)
[2016-11-12] MEDS ORDERED: PT OWN MED DRAWER 7, Y5N ONE (21:39)
[2016-11-12] MEDS: LIDOCAINE PATCH REMOVAL MC SCH (21:39)
[2016-11-13] MEDS: LIDOCAINE 5% TOPICAL PATCH TP SCH (09:59)
[2016-11-13] MEDS: BUDESONIDE/FORMETEROL FUMARATE 160/4.5 mcg INHALER IH SCH ×2 (09:59→21:19)
[2016-11-13] MEDS: PRENATAL VITAMINS W/ FOLIC ACID TABLET (FP) PO SCH (09:59)
[2016-11-13] MEDS: NAPROXEN 500 MG TABLET (FP) PO SCH ×2 (09:59→21:19)
[2016-11-13] MEDS: ESCITALOPRAM OXALATE 20 MG TABLET (FP) PO SCH (09:59)
[2016-11-13] MEDS: LOPERAMIDE HCL 2 MG CAPSULE PO PRN (10:00)
[2016-11-13] MEDS: TETRAHYDROZOLINE HCL 1 DROP DROPS OU PRN (10:00)
[2016-11-13] MEDS: cloNIDine HCL 0.1 MG TABLET PO PRN ×2 (10:02→20:30)
[2016-11-13] MEDS: NICOTINE POLACRILEX 4 MG GUM BUC PRN (13:06)
[2016-11-13] MEDS: QUEtiapine FUMARATE 100 MG TABLET (FP) PO SCH (21:18)
[2016-11-13] MEDS: THIAMINE HCL 100 MG TABLET (FP) PO SCH (21:18)
[2016-11-13] MEDS: LIDOCAINE PATCH REMOVAL MC SCH (21:19)
[2016-11-14] MEDS: MAG HYDROX/AL HYDROX/SIMETH 30 ML UNIT-DOSE CUP PO PRN (06:23)
[2016-11-14] MEDS: ESCITALOPRAM OXALATE 20 MG TABLET (FP) PO SCH (10:03)
[2016-11-14] MEDS: NAPROXEN 500 MG TABLET (FP) PO SCH ×2 (10:03→21:29)
[2016-11-14] MEDS: PRENATAL VITAMINS W/ FOLIC ACID TABLET (FP) PO SCH (10:03)
[2016-11-14] MEDS: cloNIDine HCL 0.1 MG TABLET PO PRN ×2 (10:04→21:29)
[2016-11-14] MEDS: LIDOCAINE 5% TOPICAL PATCH TP SCH (10:05)
[2016-11-14] MEDS: BUDESONIDE/FORMETEROL FUMARATE 160/4.5 mcg INHALER IH SCH ×2 (10:05→21:30)
[2016-11-14] MEDS: TETRAHYDROZOLINE HCL 1 DROP DROPS OU PRN (10:07)
[2016-11-14] MEDS: CYCLOBENZAPRINE HCL 10 MG TABLET (FP) PO PRN (10:08)
[2016-11-14] MEDS: THIAMINE HCL 100 MG TABLET (FP) PO SCH (21:29)
[2016-11-14] MEDS: LIDOCAINE PATCH REMOVAL MC SCH (21:29)
[2016-11-14] MEDS: QUEtiapine FUMARATE 100 MG TABLET (FP) PO SCH (21:29)
[2016-11-15] MEDS: MAG HYDROX/AL HYDROX/SIMETH 30 ML UNIT-DOSE CUP PO PRN ×2 (07:25→21:49)
[2016-11-15] MEDS: PRENATAL VITAMINS W/ FOLIC ACID TABLET (FP) PO SCH (10:08)
[2016-11-15] MEDS: NAPROXEN 500 MG TABLET (FP) PO SCH ×2 (10:09→21:47)
[2016-11-15] MEDS: LIDOCAINE 5% TOPICAL PATCH TP SCH (10:09)
[2016-11-15] MEDS: BUDESONIDE/FORMETEROL FUMARATE 160/4.5 mcg INHALER IH SCH ×2 (10:09→21:49)
[2016-11-15] MEDS: ESCITALOPRAM OXALATE 20 MG TABLET (FP) PO SCH (10:09)
[2016-11-15] MEDS: cloNIDine HCL 0.1 MG TABLET PO PRN ×2 (10:13→21:48)
[2016-11-15] MEDS: QUEtiapine FUMARATE 100 MG TABLET (FP) PO SCH (21:47)
[2016-11-15] MEDS: THIAMINE HCL 100 MG TABLET (FP) PO SCH (21:47)
[2016-11-15] MEDS: LIDOCAINE PATCH REMOVAL MC SCH (21:48)
[2016-11-16] MEDS ORDERED: PT OWN MED DRAWER 7, Y5N ONE ×2 (08:53→08:55)
[2016-11-16] MEDS: NAPROXEN 500 MG TABLET (FP) PO SCH ×2 (10:04→21:16)
[2016-11-16] MEDS: CYCLOBENZAPRINE HCL 10 MG TABLET (FP) PO PRN ×2 (10:04→21:15)
[2016-11-16] MEDS: ESCITALOPRAM OXALATE 20 MG TABLET (FP) PO SCH (10:04)
[2016-11-16] MEDS: PRENATAL VITAMINS W/ FOLIC ACID TABLET (FP) PO SCH (10:04)
[2016-11-16] MEDS: LIDOCAINE 5% TOPICAL PATCH TP SCH (10:04)
[2016-11-16] MEDS: cloNIDine HCL 0.1 MG TABLET PO PRN ×2 (10:05→21:15)
[2016-11-16] MEDS: BUDESONIDE/FORMETEROL FUMARATE 160/4.5 mcg INHALER IH SCH ×2 (11:36→22:52)
[2016-11-16] MEDS: QUEtiapine FUMARATE 100 MG TABLET (FP) PO SCH (21:15)
[2016-11-16] MEDS: THIAMINE HCL 100 MG TABLET (FP) PO SCH (21:15)
[2016-11-16] MEDS: LIDOCAINE PATCH REMOVAL MC SCH (21:16)
[2016-11-17] MEDS: PRENATAL VITAMINS W/ FOLIC ACID TABLET (FP) PO SCH (09:56)
[2016-11-17] MEDS: LIDOCAINE 5% TOPICAL PATCH TP SCH (09:56)
[2016-11-17] MEDS: ESCITALOPRAM OXALATE 20 MG TABLET (FP) PO SCH (09:56)
[2016-11-17] MEDS: NAPROXEN 500 MG TABLET (FP) PO SCH ×2 (09:56→22:46)
[2016-11-17] MEDS: BUDESONIDE/FORMETEROL FUMARATE 160/4.5 mcg INHALER IH SCH ×2 (09:57→22:46)
[2016-11-17] MEDS: cloNIDine HCL 0.1 MG TABLET PO PRN (09:58)
[2016-11-17] MEDS: CYCLOBENZAPRINE HCL 10 MG TABLET (FP) PO PRN ×2 (09:58→21:28)
[2016-11-17] MEDS: TETRAHYDROZOLINE HCL 1 DROP DROPS OU PRN (10:04)
[2016-11-17] MEDS: LIDOCAINE PATCH REMOVAL MC SCH (21:27)
[2016-11-17] MEDS: THIAMINE HCL 100 MG TABLET (FP) PO SCH (21:27)
[2016-11-17] MEDS: QUEtiapine FUMARATE 100 MG TABLET (FP) PO SCH (21:27)
[2016-11-18] MEDS: MAG HYDROX/AL HYDROX/SIMETH 30 ML UNIT-DOSE CUP PO PRN ×2 (04:28→10:09)
[2016-11-18] MEDS: NAPROXEN 500 MG TABLET (FP) PO SCH ×2 (10:08→21:29)
[2016-11-18] MEDS: PRENATAL VITAMINS W/ FOLIC ACID TABLET (FP) PO SCH (10:09)
[2016-11-18] MEDS: ESCITALOPRAM OXALATE 20 MG TABLET (FP) PO SCH (10:09)
[2016-11-18] MEDS: BUDESONIDE/FORMETEROL FUMARATE 160/4.5 mcg INHALER IH SCH ×2 (10:10→21:29)
[2016-11-18] MEDS: LIDOCAINE 5% TOPICAL PATCH TP SCH (10:10)
[2016-11-18] MEDS: LOPERAMIDE HCL 2 MG CAPSULE PO PRN (13:18)
[2016-11-18] MEDS: QUEtiapine FUMARATE 100 MG TABLET (FP) PO SCH (21:28)
[2016-11-18] MEDS: THIAMINE HCL 100 MG TABLET (FP) PO SCH (21:28)
[2016-11-18] MEDS: LIDOCAINE PATCH REMOVAL MC SCH (21:29)
[2016-11-19] MEDS: CYCLOBENZAPRINE HCL 10 MG TABLET (FP) PO PRN (00:21)
[2016-11-19] MEDS: MAG HYDROX/AL HYDROX/SIMETH 30 ML UNIT-DOSE CUP PO PRN ×3 (00:30→19:57)
[2016-11-19] MEDS: LIDOCAINE 5% TOPICAL PATCH TP SCH (10:17)
[2016-11-19] MEDS: ESCITALOPRAM OXALATE 20 MG TABLET (FP) PO SCH (10:17)
[2016-11-19] MEDS: NAPROXEN 500 MG TABLET (FP) PO SCH ×2 (10:17→22:37)
[2016-11-19] MEDS: PRENATAL VITAMINS W/ FOLIC ACID TABLET (FP) PO SCH (10:17)
[2016-11-19] MEDS: BUDESONIDE/FORMETEROL FUMARATE 160/4.5 mcg INHALER IH SCH ×2 (10:18→22:37)
[2016-11-19] MEDS ORDERED: PT OWN MED DRAWER 7, Y5N ONE (15:54)
[2016-11-19] MEDS: QUEtiapine FUMARATE 100 MG TABLET (FP) PO SCH (21:30)
[2016-11-19] MEDS: THIAMINE HCL 100 MG TABLET (FP) PO SCH (21:30)
[2016-11-19] MEDS: METHYL SALICYLATE/MENTHOL OINT 30 GM TUBE TP SCH (22:34)
[2016-11-19] MEDS: LIDOCAINE PATCH REMOVAL MC SCH (22:36)
[2016-11-20] MEDS: MAG HYDROX/AL HYDROX/SIMETH 30 ML UNIT-DOSE CUP PO PRN (01:50)
[2016-11-20 06:58] VITALS: BP 161/96; PULSE 75; TEMP 97.8
--- NOTE | 2016-11-20 09:23 | PN ---
Psychiatric Progress Note Vital Signs: Vital Signs Period Temp Pulse Resp BP Sys/Cormier Pulse Ox Last 24 Hr 97.8 F 75 18-18 161/96 Date of Session: 11/20/16 Chief Complaint:: Discharge Note HPI: Patient addressing Opoid and Sedative Dependence comorbid with Nicotine Dependence, Depresive Disorder and Substamnce-Induced Mood Disorder ROS: COPD Current Medications: Active Medications Generic Name Dose Route Start Last Admin Trade Name Freq PRN Reason Stop Dose Admin Acetaminophen 650 mg 11/09/16 15:00 11/19/16 00:22 Tylenol - PO 650 mg Q4H PRN Administration FEVER OR PAIN Al Hydroxide/Mg Hydroxide 30 ml 11/09/16 15:00 11/20/16 01:50 Mylanta Oral Suspension - PO 30 ml Q6H PRN Administration DYSPEPSIA Albuterol Sulfate 2 puff 11/09/16 15:01 Ventolin Hfa Inhaler - IH Q4H PRN ASTHMA Budesonide/Formoterol Fumarate 1 puff 11/09/16 22:00 11/19/16 22:37 Symbicort 160/4.5mcg - IH Not Given BID RAMOS Colloidal Oatmeal 1 applic 11/12/16 13:27 11/13/16 10:02 Aveeno Soap - TP 1 bar DAILY PRN Administration HYGEINE Cyclobenzaprine HCl 10 mg 11/12/16 13:25 11/19/16 00:21 Flexeril - PO 10 mg TID PRN Administration MUSCLE SPASMS Diphenhydramine HCl 50 mg 11/09/16 15:00 11/19/16 00:23 Benadryl - PO 50 mg HSMR1 PRN Administration FOR ITCHING Escitalopram Oxalate 20 mg 11/09/16 12:30 11/19/16 10:17 Lexapro - PO 20 mg DAILY RAMOS Administration Eucalyptus/Menthol/Phenol/Sorbitol 1 each 11/09/16 15:00 Cepastat Lozenge - MM Q4H PRN SORE THROAT Guaifenesin 10 ml 11/09/16 15:00 Robitussin Dm - PO Q6H PRN COUGH Hydroxyzine Pamoate 50 mg 11/09/16 15:00 Vistaril - PO Q4H PRN AGITATION Lidocaine 1 patch 11/10/16 13:30 11/19/16 10:17 Lidoderm Patch - TP Not Given DAILY RAMOS Loperamide HCl 4 mg 11/09/16 15:00 11/18/16 13:18 Imodium - PO 4 mg Q6H PRN Administration DIARRHEA Magnesium Hydroxide 30 ml 11/09/16 15:00 Milk Of Magnesia - PO DAILY PRN CONSTIPATION Methyl Salicylate 1 applic 11/19/16 22:00 11/19/16 22:34 Malik-Thacker - TP 1 applic BID RAMOS Administration Miscellaneous 1 each 11/10/16 22:00 11/19/16 22:36 Lidoderm Patch Removal MC 1 each DAILY@2200 RAMOS Administration Naproxen 500 mg 11/10/16 22:00 11/19/16 22:37 Naprosyn - PO Not Given BID RAMOS Nicotine Polacrilex 4 mg 11/09/16 15:00 11/13/16 13:06 Nicorette Gum - BUC 4 mg Q2H PRN Administration NICOTINE REPLACEMENT RX Multivit/Folic Acid/Iron 1 tab 11/10/16 10:00 11/19/16 10:17 Vitamins (Sjr) - PO 1 tab DAILY RAMOS Administration Pseudoephedrine/Triprolidine 1 combo 11/09/16 15:00 Actifed - PO TID PRN NASAL CONGESTION Quetiapine Fumarate 100 mg 11/09/16 22:00 11/19/16 21:30 Seroquel - PO 100 mg HS RAMOS Administration Tetrahydrozoline HCl 1 drop 11/12/16 13:28 11/17/16 10:04 Visine - OU 1 drop BID PRN Administration DRY EYES Thiamine HCl 100 mg 11/09/16 22:00 11/19/16 21:30 Vitamin B1 - PO 100 mg HS RAMOS Administration Current Side Effect: No Lab tests ordered: Yes Lab tests reviewed: Yes Provider note:: Patient has completed this program today. He has met his treatment goals and will continue to address his issues in outpatient treatment at [facility] at [address] [place] [address]. Told rewriter that from his participation in this program, he has learned the importance of establishing a sober support network in order to maintain sobriety. He responded well to Celexa 20 mg po daily and Seroquel 100 mg po HS. Scripts for 30 days supply of these medications are electronically transmitted to [facility] at [address] [place] [id number]. Patient is stable for discharge today Total face to face time:: 35 Mental Status Exam - Mental Status Exam Alert and Oriented to: Time, Place, Person Cognitive Function: Fair Patient Appearance: Well Groomed Mood: Hopeful, Euthymic Affect: Appropriate Patient Behavior: Cooperative Speech Pattern: Clear Voice Loudness: Normal Thought Process: Intact, Goal Oriented Thought Disorder: Not Present Hallucinations: Denies Suicidal Ideation: Denies Homicidal Ideation: Denies Insight/Judgement: Fair Sleep: Fair Appetite: Good Muscle strength/Tone: Normal Gait/Station: Normal Psychiatric Treatment Plan - Problem List (1) Opioid dependence Current Visit: Yes (2) Sedative dependence Current Visit: Yes (3) Nicotine dependence Current Visit: Yes Qualifiers: Nicotine product type: cigarettes Substance use status: uncomplicated Qualified Code(s): F17.210 - Nicotine dependence, cigarettes, uncomplicated (4) Depressive disorder Current Visit: Yes (5) Substance induced mood disorder Current Visit: Yes (6) COPD with chronic bronchitis Current Visit: Yes Initial treatment plan: Patient is discharged today and referred to [facility] for outpatient treatment
[2016-11-20] MEDS: NAPROXEN 500 MG TABLET (FP) PO SCH (10:07)
[2016-11-20] MEDS: PRENATAL VITAMINS W/ FOLIC ACID TABLET (FP) PO SCH (10:07)
[2016-11-20] MEDS: ESCITALOPRAM OXALATE 20 MG TABLET (FP) PO SCH (10:07)
[2016-11-20] MEDS: METHYL SALICYLATE/MENTHOL OINT 30 GM TUBE TP SCH (10:07)
[2016-11-20] MEDS: LIDOCAINE 5% TOPICAL PATCH TP SCH (10:07)
[2016-11-20] MEDS: BUDESONIDE/FORMETEROL FUMARATE 160/4.5 mcg INHALER IH SCH (10:08)
[2016-11-20] MEDS ORDERED: PT OWN MED DRAWER 7, Y5N ONE (10:09)
== END 2016-11-20 10:15 | disposition home or self-care (01) | DRG 772 ==
LOC: YASAS 11:05 → Y3W 11:06
PROVIDERS: ADMIT Psychiatry & Neurology Psychiatry; ATTEND Psychiatry & Neurology Psychiatry
PROC: HZ42ZZZ Group Counseling for Substance Abuse Treatment, Cognitive-Behavioral (ICD-10-PCS; principal; 2016-11-20)
DX: F11.20 Opioid dependence, uncomplicated (principal); F13.20 Sedative, hypnotic or anxiolytic dependence, uncomplicated; F17.210 Nicotine dependence, cigarettes, uncomplicated; F19.24 Other psychoactive substance dependence with psychoactive substance-induced mood disorder; G47.00 Insomnia, unspecified; J42 Unspecified chronic bronchitis
CPT/HCPCS: J0735

== ENCOUNTER 2019-06-17 10:59 | Inpatient (IN) | payer OTHER ==
[2019-06-17 11:44] VITALS: BMI 21.7
--- NOTE | 2019-06-17 12:07 | HP ---
COWS - Scale Resting Pulse: 0= [place] 80 or Below Sweatin= Beads of Sweat on Face Restless Observation: 1= Difficult to Sit Still Pupil Size: 1= Pupils >than Normal Bone or Joint Aches: 4=Acute Joint/Muscle Pain Runny Nose/ Eye Tearin= Runny Nose/Eyes GI Upset > 30mins: 1= Stomach Cramp Tremor Observation: 1= Tremor [place], Not Seen Yawning Observation: 1= 1-2x During Session Anxiety or Irritability: 1=Feels Anxious/Irritable Goose Flesh Skin: 3=Piloerection COWS Score: 18 CIWA Score Nausea/Vomitin Muscle Tremors: 1-None Visible, but [place] Anxiety: 3 Agitation: 2 Paroxysmal Sweats: 4-Forehead w/Sweat Beads Orientation: 0-Oriented Tacttile Disturbances: 0-None Auditory Disturbances: 0-None Visual Disturbances: 0-None Headache: 1-Very Mild CIWA-Ar Total Score: 14 - Admission Criteria OASAS Guidelines: Admission for Medically Managed Detox: Requires at least one of the followin. CIWA greater than 12 2. Seizures within the past 24 hours 3. Delirium tremens within the past 24 hours 4. Hallucinations within the past 24 hours 5. Acute intervention needed for co occurring medical disorder 6. Acute intervention needed for co occurring psychiatric disorder 7. Severe withdrawal that cannot be handled at a lower level of care (continued vomiting, continued diarrhea, abnormal vital signs) requiring intravenous medication and/or fluids 8. Admitting History and Physical - Admission Chief Complaint: "I am tired of using and I am homeless and my body is breaking down. I am homeless." History of Present Illness: 53 year old male with alcohol dependence and opioid dependence with withdrawal. He is using 8-10 bags of heroin per day, intranasally. He has overdosed 6 weeks. He does not carry narcan kit but has it at home. He is drinking 40 oz beers, 2 quarts per day, last drank 2 days ago. Patient denies blackout or seizures on withdrawals. Denies any use of other substances. He smokes 4-5 ciggs per day, smoked today. PMH: COPD, Asthma, peripheral blood clot. Psurg: None left fractured rib in past. Back injury in 2017 with chronic pain Psych: PTSD, Bipolar Disorder, Depression on Lexapro and Seroquel Meds: Lidocaine patches and Neurontin when he is in a lot of pain. He has a PMD and last saw him 1 month ago. His PMD has been recommending detox and rehab. He is homeless about 2 years now but not in halfway system. He has been sleeping in friend's houses and family houses. Patient has no legal issues pending. History Source: Patient Limitations to Obtaining History: No Limitations - Past Medical History Pulmonary: Yes: Asthma, COPD - Past Surgical History Past Surgical History: Yes: None - Advance Directives Advance Directives: No: Living Will, Health Care Proxy, DNR - Smoking History Smoking history: Current every day smoker Have you smoked in the past 12 months: Yes Aproximately how many cigarettes per day: 5 - Alcohol/Substance Use Hx Alcohol Use: Yes (1/2 quart beers daily) History of Substance Use: reports: Heroin Date of Last Use: 06/16/19 - Social History Usual Living Arrangement: Yes: Alone Do you think of yourself as: Straight/Heterosexual ADL: Independent Occupation: unemployed used to work in a [employer] History of Recent Travel: No Admission [facility] Allergies/Adverse Reactions: Allergies Allergy/AdvReac Type Severity Reaction Status Date / Time penicillin G Allergy Severe Rash Verified 06/17/19 11:33 Fish Containing Products Allergy Verified 06/17/19 11:34 - Ebola screening Have you traveled outside of the country in the last 21 days: No Have you had contact with anyone from an Ebola affected area: No Have you been sick,other than usual withdrawal symptoms: No Do you have a fever: No - Review of Systems Constitutional: Chills, Diaphoresis, Unintentional Wgt. Loss EENT: reports: No Symptoms Reported Respiratory: reports: No Symptoms reported Cardiac: reports: No Symptoms Reported GI: reports: Nausea, Abdominal cramping : reports: No Symptoms Reported Musculoskeletal: reports: Back Pain, Muscle Pain Integumentary: reports: No Symptoms Reported Neuro: reports: Headache Endocrine: reports: No Symptoms Reported Hematology: reports: No Symptoms Reported Psychiatric: reports: Judgement Intact, Orientated x3, Agitated, Anxious Other Systems: Reviewed and Negative Patient History - Patient Medical History Hx Anemia: No Hx Asthma: Yes Hx Chronic Obstructive Pulmonary Disease (COPD): Yes Hx Cancer: No Hx Cardiac Disorders: No Hx Congestive Heart Failure: No Hx Hypertension: No Hx Hypercholesterolemia: Yes (In past. No medication.) Hx Pacemaker: No HX Cerebrovascular Accident: No Hx Seizures: No Hx Dementia: No Hx Diabetes: No Hx Gastrointestinal Disorders: No Hx Liver Disease: No Hx Genitourinary Disorders: No Hx Sexually Transmitted Disorders: No Hx Renal Disease (ESRD): No Hx Thyroid Disease: No Hx Human Immunodeficiency Virus (HIV): No (Last Tested: 07/2015: NEGATIVE.) Hx Hepatitis C: No (Last Tested: 07/2015: NEGATIVE.) Hx Depression: Yes Hx Suicide Attempt: No Hx Bipolar Disorder: Yes (On meds.) Hx Schizophrenia: No - Patient Surgical History Past Surgical History: No Hx Neurologic Surgery: No Hx Cataract Extraction: No Hx Cardiac Surgery: No Hx Lung Surgery: No Hx Breast Surgery: No Hx Breast Biopsy: No Hx Abdominal Surgery: No Hx Appendectomy: No Hx Cholecystectomy: No Hx Genitourinary Surgery: No Hx Section: No Hx Orthopedic Surgery: No Anesthesia Reaction: No - PPD History Date: 11/06/16 Results: 0 mm - Smoking Cessation Smoking history: Current every day smoker Have you smoked in the past 12 months: Yes Aproximately how many cigarettes per day: 5 Cigars Per Day: 0 Hx Chewing Tobacco Use: No Initiated information on smoking cessation: Yes 'Breaking Loose' booklet given: 06/17/19 - Substances abused Alcohol Substance route: Oral Frequency: Daily Amount used: 1 beer 40 oz Age of first use: 14 Date of last use: 06/15/19 Heroin Substance route: Inhalation Frequency: Daily Amount used: 8-10 bags Age of first use: 14 Date of last use: 06/16/19 Admission Physical Exam S - Vital Signs Vital Signs: Vital Signs - 24 hr 06/17/19 11:37 Temperature 97.7 F Pulse Rate 73 Respiratory 20 Rate Blood Pressure 129/81 - Physical General Appearance: Yes: Mild Distress, Irritable, Sweating, Anxious HEENTM: Yes: EOMI, Hearing grossly Normal, Normal ENT Inspection, Normocephalic , Normal Voice, REZA, Pharynx Normal, Tm's normal Respiratory: Yes: Chest Non-Tender, Lungs Clear, Normal Breath Sounds, No Respiratory Distress, No Accessory Muscle Use Neck: Yes: No masses,lesions,Nodules, Supple, Trachea in good position Breast: Yes: Within Normal Limits Cardiology: Yes: Regular Rhythm, Regular Rate, S1, S2 Abdominal: Yes: Flat, Soft, Increased Bowel Sounds Genitourinary: Yes: Within Normal Limits Back: Yes: Normal Inspection Musculoskeletal: Yes: full range of Motion, Gait Steady, Pelvis Stable Extremities: Yes: Normal Capillary Refill, Normal Inspection, Normal Range of Motion, Non-Tender Neurological: Yes: tire repairer II-XII NML intact, Fully Oriented, Alert, Motor Strength 5/5, Normal Mood/Affect, Normal Response Integumentary: Yes: Normal Color, Warm Lymphatic: Yes: Within Normal Limits - Diagnostic (1) Alcohol dependence with withdrawal Current Visit: Yes Status: Acute (2) Nicotine dependence Current Visit: Yes Status: Acute Qualifiers: Nicotine product type: cigarettes Substance use status: uncomplicated Qualified Code(s): F17.210 - Nicotine dependence, cigarettes, uncomplicated (3) Opioid dependence with withdrawal Current Visit: Yes Status: Acute Cleared for Admission [facility] - Detox or Rehab [facility] Level of Care: Medically Managed Detox Regimen/Protocol: Methadone/Librium Claeared for Rehab Admission: No Screened but not Admitted - Documentation of Visit Screened but not Admitted: No Inpatient Rehab Admission - Rehab Decision to Admit Inpatient rehab admission?: No
[2019-06-17] MEDS ORDERED: chlordiazePOXIDE HCL 10 MG CAPSULE PO PRN (12:14)
[2019-06-17] MEDS ORDERED: MAGNESIUM HYDROX 2400MG/30ML ORAL SUSPENSION 30 ML CUP PO PRN (12:14)
[2019-06-17] MEDS ORDERED: METHOCARBAMOL 500 MG TABLET PO PRN (12:14)
[2019-06-17] MEDS ORDERED: MAG HYDROX/AL HYDROX/SIMETH 30 ML UNIT-DOSE CUP PO PRN (12:14)
[2019-06-17] MEDS ORDERED: ACETAMINOPHEN 325 MG TABLET (FP) PO PRN ×2 (12:14)
[2019-06-17] MEDS ORDERED: MAGNESIUM CITRATE 300 ML BOTTLE PO PRN (12:14)
[2019-06-17] MEDS ORDERED: MENTHOL/PHENOL 1 EACH UD MM PRN (12:14)
[2019-06-17] MEDS ORDERED: IBUPROFEN 400 MG TABLET (FP) PO PRN (12:14)
[2019-06-17] MEDS ORDERED: hydrOXYzine PAMOATE 25 MG CAPSULE (FP) PO PRN (12:14)
[2019-06-17] MEDS ORDERED: ESCITALOPRAM OXALATE 20 MG TABLET (FP) PO SCH (13:00)
[2019-06-17] MEDS ORDERED: METHADONE HCL 10 MG TABLET (FOR DETOX USE ONLY) PO ONE (13:00)
[2019-06-17] MEDS: chlordiazePOXIDE HCL 25 MG CAPSULE PO SCH ×2 (13:20→21:59)
[2019-06-17] MEDS: GABAPENTIN 100 MG CAPSULE (FP) PO SCH ×2 (13:20→22:59)
[2019-06-17] MEDS: PANTOPRAZOLE 40 MG TABLET (FP) PO SCH (13:20)
[2019-06-17] MEDS: cloNIDine HCL 0.1 MG TABLET PO PRN (17:27)
[2019-06-17 17:47] LABS: HEMOGLOBIN 12.9 GM/dL (11.7-16.9); MCH 29.7 pg (25.7-33.7); MCHC 32.2 g/dl (32.0-35.9); MEAN CELL VOLUME 92.3 fl (80-96); MEAN PLT VOLUME 9.8 fl (7.5-11.1); PLATELET COUNT 246 K/MM3 (134-434); RBC 4.33 M/mm3 (4.00-5.60); RDW 14.4 % (11.9-15.9); WHITE BLOOD COUNT 10.5 K/mm3 (4.0-10.0)
[2019-06-17 18:05] LABS: ALBUMIN 3.8 g/dl (3.4-5.0); BILIRUBIN,TOTAL 0.4 mg/dL (0.2-1); BLOOD UREA NITROGEN 14.9 mg/dL (7-18); CALCIUM 9.4 mg/dL (8.5-10.1); CREATININE 0.8 mg/dL (0.55-1.3); POTASSIUM 4.2 mmol/L (3.5-5.1); TOT PROT 6.9 g/dl (6.4-8.2)
[2019-06-17] MEDS ORDERED: MELATONIN 5 MG TABLETS PO PRN (22:00)
[2019-06-17] MEDS: THIAMINE HCL 100 MG TABLET (FP) PO SCH (22:58)
[2019-06-17] MEDS: QUEtiapine FUMARATE 100 MG TABLET (FP) PO SCH (22:59)
[2019-06-17] MEDS: MONTELUKAST NA 10 MG TABLET PO SCH (22:59)
[2019-06-18] MEDS: chlordiazePOXIDE HCL 25 MG CAPSULE PO SCH ×3 (05:49→22:08)
[2019-06-18] MEDS ORDERED: METHADONE HCL 5 MG TABLET (FOR DETOX USE ONLY) ONE (09:36)
[2019-06-18] MEDS ORDERED: METHADONE HCL 10 MG TABLET (FOR DETOX USE ONLY) ONE (09:37)
[2019-06-18] MEDS ORDERED: METHADONE (DETOX) 20 MG, METHADONE (DETOX) 5 MG PO ONE (10:00)
--- NOTE | 2019-06-18 10:21 | PN ---
[facility] CIWA - CIWA Score Nausea/Vomitin-Mild Nausea/No Vomiting Muscle Tremors: 2 Anxiety: 2 Agitation: 2 Paroxysmal Sweats: 2 Orientation: 0-Oriented Tacttile Disturbances: 0-None Auditory Disturbances: 0-None Visual Disturbances: 0-None Headache: 1-Very Mild CIWA-Ar Total Score: 10 BHS COWS - Scale Resting Pulse: 1= [place] 81-100 Sweatin= Chills/Flushing Restless Observation: 1= Difficult to Sit Still Pupil Size: 0= Normal to Room Light Bone or Joint Aches: 1= Mild Discomfort Runny Nose/ Eye Tearin= Nasal Congestion GI Upset > 30mins: 1= Stomach Cramp Tremor Observation of Outstretched Hands: 1= Tremor [place], Not Seen Yawning Observation: 0= None Anxiety or Irritability: 1=Feels Anxious/Irritable Goose Flesh Skin: 0=Smooth Skin COWS Score: 8 BHS Progress Note (SOAP) Subjective: pt admitted yesterday for alcohol and heroin detox. Says feeling fine so far with detox protocol O: Vital Signs - 24 hr 06/17/19 06/17/19 06/17/19 11:37 17:08 21:23 Temperature 97.7 F 97.9 F 98.2 F Pulse Rate 73 72 66 Respiratory 20 18 17 Rate Blood Pressure 129/81 150/86 157/78 06/18/19 06/18/19 06/18/19 01:11 03:30 06:00 Temperature 97.9 F Pulse Rate 59 L Respiratory 18 16 16 Rate Blood Pressure 149/76 06/18/19 09:34 Temperature 98.2 F Pulse Rate 56 L Respiratory 18 Rate Blood Pressure 145/91 Laboratory Tests 06/17/19 06/17/19 06/17/19 13:05 13:05 13:05 WBC 10.5 H RBC 4.33 Hgb 12.9 Hct 40.0 MCV 92.3 MCH 29.7 MCHC 32.2 RDW 14.4 Plt Count 246 MPV 9.8 Sodium 140 Potassium 4.2 Chloride 105 Carbon Dioxide 31 Anion Gap 5 L BUN 14.9 Creatinine 0.8 Est GFR (CKD-EPI)AfAm 116.56 Est GFR (CKD-EPI)NonAf 100.57 Random Glucose 86 Calcium 9.4 Total Bilirubin 0.4 AST 20 ALT 21 Alkaline Phosphatase 88 Total Protein 6.9 Albumin 3.8 RPR Titer Nonreactive a/p OUD/AUD- detox protocols BP noted to be high, no h/o HTN. Needs f/u and if remains high may need HTN meds
[2019-06-18] MEDS: PRENATAL VITAMINS W/ FOLIC ACID TABLET (FP) PO SCH (10:26)
[2019-06-18] MEDS: GABAPENTIN 100 MG CAPSULE (FP) PO SCH ×2 (10:26→22:04)
[2019-06-18] MEDS: PANTOPRAZOLE 40 MG TABLET (FP) PO SCH (10:26)
[2019-06-18] MEDS: ALBUTEROL SO4 8 GM HFA INHALER IH PRN (10:28)
[2019-06-18] MEDS: NICOTINE POLACRILEX 2 MG GUM BUC PRN ×2 (15:41→19:15)
[2019-06-18] MEDS: QUEtiapine FUMARATE 100 MG TABLET (FP) PO SCH (22:03)
[2019-06-18] MEDS: MONTELUKAST NA 10 MG TABLET PO SCH (22:03)
[2019-06-18] MEDS: THIAMINE HCL 100 MG TABLET (FP) PO SCH (22:04)
[2019-06-18] MEDS: BUDESONIDE/FORMETEROL FUMARATE 160/4.5 mcg INHALER IH SCH (22:06)
[2019-06-19] MEDS: cloNIDine HCL 0.1 MG TABLET PO PRN ×2 (02:01→06:17)
[2019-06-19] MEDS: chlordiazePOXIDE 5 MG CAPSULE PO SCH ×4 (06:17→22:45)
[2019-06-19] MEDS ORDERED: METHADONE HCL 10 MG TABLET (FOR DETOX USE ONLY) PO ONE (10:00)
[2019-06-19] MEDS: BUDESONIDE/FORMETEROL FUMARATE 160/4.5 mcg INHALER IH SCH ×2 (11:22→22:44)
[2019-06-19] MEDS: PANTOPRAZOLE 40 MG TABLET (FP) PO SCH (11:22)
[2019-06-19] MEDS: PRENATAL VITAMINS W/ FOLIC ACID TABLET (FP) PO SCH (11:22)
[2019-06-19] MEDS: GABAPENTIN 100 MG CAPSULE (FP) PO SCH ×2 (11:22→22:40)
--- NOTE | 2019-06-19 14:17 | PN ---
[facility] CIWA - CIWA Score Nausea/Vomitin-Mild Nausea/No Vomiting Muscle Tremors: 3 Anxiety: 2 Agitation: 2 Paroxysmal Sweats: 2 Orientation: 0-Oriented Tacttile Disturbances: 0-None Auditory Disturbances: 0-None Visual Disturbances: 0-None Headache: 1-Very Mild CIWA-Ar Total Score: 11 S COWS - Scale Resting Pulse: 1= [place] 81-100 Sweatin= Chills/Flushing Restless Observation: 1= Difficult to Sit Still Pupil Size: 0= Normal to Room Light Bone or Joint Aches: 1= Mild Discomfort Runny Nose/ Eye Tearin= Nasal Congestion GI Upset > 30mins: 1= Stomach Cramp Tremor Observation of Outstretched Hands: 1= Tremor [place], Not Seen Yawning Observation: 1= 1-2x During Session Anxiety or Irritability: 1=Feels Anxious/Irritable Goose Flesh Skin: 0=Smooth Skin COWS Score: 9 S Progress Note (SOAP) Subjective: pt states he still does not feel good, feels like he is in withdrawal. O: Vital Signs - 24 hr 06/18/19 06/18/19 06/19/19 17:28 21:51 00:30 Temperature 98.3 F 98.6 F Pulse Rate 63 55 L Respiratory 18 18 18 Rate Blood Pressure 141/76 125/80 06/19/19 06/19/19 07:58 10:04 Temperature 98.1 F Pulse Rate 85 63 Respiratory 20 16 Rate Blood Pressure 142/93 140/93 Laboratory Tests 06/17/19 06/17/19 06/17/19 13:05 13:05 13:05 WBC 10.5 H RBC 4.33 Hgb 12.9 Hct 40.0 MCV 92.3 MCH 29.7 MCHC 32.2 RDW 14.4 Plt Count 246 MPV 9.8 Sodium 140 Potassium 4.2 Chloride 105 Carbon Dioxide 31 Anion Gap 5 L BUN 14.9 Creatinine 0.8 Est GFR (CKD-EPI)AfAm 116.56 Est GFR (CKD-EPI)NonAf 100.57 Random Glucose 86 Calcium 9.4 Total Bilirubin 0.4 AST 20 ALT 21 Alkaline Phosphatase 88 Total Protein 6.9 Albumin 3.8 RPR Titer Nonreactive a/p continue alcohol and heroin detox: Says he would like to try valium- thinks it may work better for him- will change to valium prn. And leave standing dose librium for alcohol detox and methadone detox.
[2019-06-19] MEDS: diazePAM 5 MG TABLET PO PRN ×2 (15:20→22:47)
[2019-06-19] MEDS: NICOTINE POLACRILEX 2 MG GUM BUC PRN (17:30)
[2019-06-19] MEDS: THIAMINE HCL 100 MG TABLET (FP) PO SCH (22:40)
[2019-06-19] MEDS: MONTELUKAST NA 10 MG TABLET PO SCH (22:40)
[2019-06-20] MEDS ORDERED: chlordiazePOXIDE HCL 10 MG CAPSULE PO PRN
[2019-06-20] MEDS: chlordiazePOXIDE HCL 10 MG CAPSULE PO SCH ×3 (06:57→22:17)
[2019-06-20] MEDS ORDERED: METHADONE HCL 10 MG TABLET (FOR DETOX USE ONLY) ONE (09:25)
[2019-06-20] MEDS ORDERED: METHADONE HCL 5 MG TABLET (FOR DETOX USE ONLY) ONE (09:25)
[2019-06-20] MEDS ORDERED: METHADONE (DETOX) 10 MG, METHADONE (DETOX) 5 MG PO ONE (10:00)
[2019-06-20] MEDS: BUDESONIDE/FORMETEROL FUMARATE 160/4.5 mcg INHALER IH SCH ×2 (10:12→22:19)
[2019-06-20] MEDS: GABAPENTIN 100 MG CAPSULE (FP) PO SCH ×2 (10:13→22:17)
[2019-06-20] MEDS: PRENATAL VITAMINS W/ FOLIC ACID TABLET (FP) PO SCH (10:13)
[2019-06-20] MEDS: PANTOPRAZOLE 40 MG TABLET (FP) PO SCH (10:13)
[2019-06-20] MEDS: diazePAM 5 MG TABLET PO PRN ×2 (11:06→17:40)
--- NOTE | 2019-06-20 17:22 | PN ---
[facility] CIWA - CIWA Score Nausea/Vomitin-Mild Nausea/No Vomiting Muscle Tremors: 2 Anxiety: 2 Agitation: 2 Paroxysmal Sweats: 2 Orientation: 0-Oriented Tacttile Disturbances: 0-None Auditory Disturbances: 0-None Visual Disturbances: 0-None Headache: 0-None Present CIWA-Ar Total Score: 9 BHS COWS - Scale Resting Pulse: 0= [place] 80 or Below Sweatin= Chills/Flushing Restless Observation: 1= Difficult to Sit Still Pupil Size: 0= Normal to Room Light Bone or Joint Aches: 2= Severe Diffuse Aches Runny Nose/ Eye Tearin= None GI Upset > 30mins: 1= Stomach Cramp Tremor Observation of Outstretched Hands: 2= Slight Tremor Visible Yawning Observation: 0= None Anxiety or Irritability: 2=Irritable/Anxious Goose Flesh Skin: 0=Smooth Skin COWS Score: 9 BHS Progress Note (SOAP) Subjective: Chills, sweating, tremor, agitated, interrupted sleep Objective: 06/20/19 17:18 Last Vital Signs Temp Pulse Resp BP Pulse Ox 98.1 F 58 L 17 122/76 06/20/19 17:15 06/20/19 17:15 06/20/19 17:15 06/20/19 17:15 Laboratory Tests 06/17/19 06/17/19 06/17/19 13:05 13:05 13:05 WBC 10.5 H RBC 4.33 Hgb 12.9 Hct 40.0 MCV 92.3 MCH 29.7 MCHC 32.2 RDW 14.4 Plt Count 246 MPV 9.8 Sodium 140 Potassium 4.2 Chloride 105 Carbon Dioxide 31 Anion Gap 5 L BUN 14.9 Creatinine 0.8 Est GFR (CKD-EPI)AfAm 116.56 Est GFR (CKD-EPI)NonAf 100.57 Random Glucose 86 Calcium 9.4 Total Bilirubin 0.4 AST 20 ALT 21 Alkaline Phosphatase 88 Total Protein 6.9 Albumin 3.8 RPR Titer Nonreactive Labs reviewed: wbc 10.5 (elevated) Assessment: 06/20/19 17:20 Withdrawal sxs Noted with leukocytosis Plan: Continue detox Encouraged PO water intake Leukocytosis: asymptomatic, repeat CBC, send UA
[2019-06-20] MEDS: NICOTINE POLACRILEX 2 MG GUM BUC PRN ×2 (17:51→22:49)
[2019-06-20] MEDS: THIAMINE HCL 100 MG TABLET (FP) PO SCH (22:17)
[2019-06-20] MEDS: MONTELUKAST NA 10 MG TABLET PO SCH (23:16)
[2019-06-21] MEDS: diazePAM 5 MG TABLET PO PRN (01:01)
[2019-06-21] MEDS ORDERED: chlordiazePOXIDE HCL 10 MG CAPSULE PO ONE (05:00)
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
[2019-06-21 09:56] LABS: URINE APPEARANCE CLEAR; URINE BILIRUBIN NEGATIVE (NEGATIVE); URINE COLOR YELLOW; URINE GLUCOSE (UA) NEGATIVE (NEGATIVE); URINE KETONE NEGATIVE (NEGATIVE); URINE LEUK ESTERASE NEGATIVE (NEGATIVE); URINE NITRITE NEGATIVE (NEGATIVE); URINE PROTEIN NEGATIVE (NEGATIVE); URINE UROBILINOGEN 0.2 mg/dL (0.2-1.0)
[2019-06-21] MEDS ORDERED: METHADONE HCL 10 MG TABLET (FOR DETOX USE ONLY) PO ONE (10:00)
[2019-06-21] MEDS: PRENATAL VITAMINS W/ FOLIC ACID TABLET (FP) PO SCH (10:13)
[2019-06-21] MEDS: GABAPENTIN 100 MG CAPSULE (FP) PO SCH ×2 (10:13→21:20)
[2019-06-21] MEDS: PANTOPRAZOLE 40 MG TABLET (FP) PO SCH (10:13)
[2019-06-21] MEDS: METHYL SALICYLATE/MENTHOL OINT 30 GM TUBE TP SCH ×2 (10:13→21:19)
[2019-06-21] MEDS: ESCITALOPRAM OXALATE 20 MG TABLET (FP) PO SCH (10:13)
[2019-06-21] MEDS: BUDESONIDE/FORMETEROL FUMARATE 160/4.5 mcg INHALER IH SCH ×2 (11:41→21:20)
--- NOTE | 2019-06-21 11:43 | PN ---
[facility] CIWA - CIWA Score Nausea/Vomitin Muscle Tremors: 1-None Visible, but [place] Anxiety: 2 Agitation: 2 Paroxysmal Sweats: No Perspiration Orientation: 0-Oriented Tacttile Disturbances: 1-Very Mild Itch/Numbness Auditory Disturbances: 0-None Visual Disturbances: 0-None Headache: 1-Very Mild CIWA-Ar Total Score: 9 BHS COWS - Scale Resting Pulse: 0= [place] 80 or Below Sweatin= No chills or Flushing Restless Observation: 1= Difficult to Sit Still Pupil Size: 1= Pupils >than Normal Bone or Joint Aches: 1= Mild Discomfort Runny Nose/ Eye Tearin= Nasal Congestion GI Upset > 30mins: 1= Stomach Cramp Tremor Observation of Outstretched Hands: 1= Tremor [place], Not Seen Yawning Observation: 1= 1-2x During Session Anxiety or Irritability: 2=Irritable/Anxious Goose Flesh Skin: 0=Smooth Skin COWS Score: 9 [facility] Progress Note (SOAP) Subjective: alert,irritable,anxious,interrupted sleep,low back pain,abdominal cramp with loose bowel movement Objective: 06/21/19 11:47 Vital Signs Temperature 98.1 F 06/21/19 09:23 Pulse Rate 66 06/21/19 09:23 Respiratory Rate 16 06/21/19 09:23 Blood Pressure 141/78 06/21/19 09:23 O2 Sat by Pulse Oximetry (%) Assessment: 06/21/19 11:47 withdrawal symptom Plan: continue detox,methadone and librieum regimen,lidoderm patch 5%,discharge in am
[2019-06-21] MEDS: LIDOCAINE 5% TOPICAL PATCH TP SCH (11:57)
[2019-06-21] MEDS: ALBUTEROL SO4 8 GM HFA INHALER IH PRN (17:28)
[2019-06-21] MEDS: BISMUTH SUBSALICYLATE 524 MG/30 ML UD PO PRN (17:28)
[2019-06-21] MEDS: NICOTINE POLACRILEX 2 MG GUM BUC PRN (17:30)
[2019-06-21] MEDS: MONTELUKAST NA 10 MG TABLET PO SCH (21:20)
[2019-06-21] MEDS: THIAMINE HCL 100 MG TABLET (FP) PO SCH (21:24)
[2019-06-21] MEDS ORDERED: QUEtiapine FUMARATE 200 MG TABLET PO SCH (22:00)
[2019-06-21] MEDS ORDERED: LIDOCAINE PATCH REMOVAL MC SCH (22:00)
[2019-06-22] MEDS ORDERED: METHADONE HCL 5 MG TABLET (FOR DETOX USE ONLY) PO ONE (06:00)
[2019-06-22] MEDS: PANTOPRAZOLE 40 MG TABLET (FP) PO SCH (09:25)
[2019-06-22] MEDS: METHYL SALICYLATE/MENTHOL OINT 30 GM TUBE TP SCH (09:25)
[2019-06-22] MEDS: LIDOCAINE 5% TOPICAL PATCH TP SCH (09:25)
[2019-06-22] MEDS: GABAPENTIN 100 MG CAPSULE (FP) PO SCH (09:25)
[2019-06-22] MEDS: PRENATAL VITAMINS W/ FOLIC ACID TABLET (FP) PO SCH (09:25)
[2019-06-22] MEDS: ESCITALOPRAM OXALATE 20 MG TABLET (FP) PO SCH (09:25)
[2019-06-22] MEDS: BUDESONIDE/FORMETEROL FUMARATE 160/4.5 mcg INHALER IH SCH (09:25)
[2019-06-22] MEDS: BISMUTH SUBSALICYLATE 524 MG/30 ML UD PO PRN (09:27)
[2019-06-22 09:30] VITALS: BP 131/89; PULSE 68; TEMP 97.9
--- NOTE | 2019-06-22 09:51 | DS ---
[facility] Detox Discharge Summary Admission Date: 06/17/19 Discharge Date: 06/22/19 - History Present History: Alcohol Dependence, Opioid Dependence, Sedative Dependence - Physical Exam Results Vital Signs: Vital Signs Temperature 97.9 F 06/22/19 09:29 Pulse Rate 68 06/22/19 09:29 Respiratory Rate 18 06/22/19 09:29 Blood Pressure 131/89 06/22/19 09:29 O2 Sat by Pulse Oximetry (%) - Treatment Hospital Course: Detox Protocol Followed, Detoxed Safely, Responded well, Discharged Condition Good, Rehab Referral Accepted - Medication Discharge Medications: Ambulatory Orders Escitalopram Oxalate [Lexapro -] 20 mg PO DAILY 11/04/16 Citalopram Hydrobromide [Celexa -] 20 mg PO DAILY #30 tablet 11/20/16 Ipratropium [place] [Atrovent Hfa] 1 inh IH BID #1 inh 11/20/16 Gabapentin [Neurontin] 200 mg PO BID 06/17/19 Naproxen [Naprosyn -] 250 mg PO BID 06/17/19 Quetiapine Fumarate [Seroquel] 200 mg PO HS 06/17/19 Ranitidine HCl 150 mg PO DAILY 06/17/19 Albuterol Sulfate Inhaler - [Ventolin HFA Inhaler -] 2 inh IH Q4H PRN #1 inh 01/02 Budesonide/Formeterol Fumarate [SYMBICORT 160/4.5mcg -] 1 inh PO BID #1 inhaler 06/22/19 Lidocaine 5% Patch [Lidoderm -] 1 patch TP DAILY #60 patch 06/22/19 Montelukast Na [Singulair -] 10 mg PO HS #30 tablet 06/22/19 - Diagnosis (1) Alcohol dependence with withdrawal Current Visit: Yes Status: Chronic Qualifiers: Complication of substance-induced condition: uncomplicated Qualified Code(s ): F10.230 - Alcohol dependence with withdrawal, uncomplicated (2) Opioid dependence with withdrawal Current Visit: Yes Status: Chronic (3) Substance-induced sleep disorder Current Visit: Yes Status: Acute (4) Bipolar disorder Current Visit: Yes Status: Chronic (5) Nicotine dependence Current Visit: Yes Status: Chronic Qualifiers: Nicotine product type: cigarettes Substance use status: uncomplicated Qualified Code(s): F17.210 - Nicotine dependence, cigarettes, uncomplicated (6) PTSD (post-traumatic stress disorder) Current Visit: Yes Status: Chronic (7) Insomnia Current Visit: No Status: Acute (8) Opioid dependence Current Visit: Yes Status: Chronic (9) Sedative dependence Current Visit: No Status: Acute (10) Substance induced mood disorder Current Visit: No Status: Acute (11) Bipolar disorder Current Visit: No Status: Chronic Qualifiers: Active/Remission status: remission status unspecified Qualified Code(s): F31.9 - Bipolar disorder, unspecified (12) COPD with chronic bronchitis Current Visit: No Status: Chronic (13) Depressive disorder Current Visit: No Status: Chronic (14) Left rib fracture Current Visit: No Status: Resolved Qualifiers: Encounter type: subsequent encounter Rib fracture type: single rib Fracture type: closed Fracture healing: with routine healing Qualified Code( s): S22.32XD - Fracture of one rib, left side, subsequent encounter for fracture with routine healing - AMA Did Patient Leave Against Medical Advice: No
== END 2019-06-22 09:50 | disposition home or self-care (01) | DRG 773 ==
LOC: YASAS 10:59 → Y6N 12:44
PROVIDERS: ADMIT Allergy & Immunology; ATTEND Allergy & Immunology
PROC: HZ2ZZZZ Detoxification Services for Substance Abuse Treatment (ICD-10-PCS; principal; 2019-06-17)
DX: F11.23 Opioid dependence with withdrawal (principal); F10.230 Alcohol dependence with withdrawal, uncomplicated; F17.210 Nicotine dependence, cigarettes, uncomplicated; F31.9 Bipolar disorder, unspecified; F43.10 Post-traumatic stress disorder, unspecified; F19.24 Other psychoactive substance dependence with psychoactive substance-induced mood disorder; F19.282 Other psychoactive substance dependence with psychoactive substance-induced sleep disorder; D72.829 Elevated white blood cell count, unspecified; J44.9 Chronic obstructive pulmonary disease, unspecified; G47.00 Insomnia, unspecified; Z88.0 Allergy status to penicillin; Z91.013 Allergy to seafood; Z59.0 Homelessness
CPT/HCPCS: 36415; 80053; 81003; 85027; 86593; J0735

== ENCOUNTER 2019-08-05 12:41 | Inpatient (IN) | payer OTHER ==
--- NOTE | 2019-08-05 13:04 | BHS.RME ---
Substance Use & Tx History - Substance Use History Alcohol Substance amount: 40 oz beers x2 Frequency of use: Daily Substance route: Oral Date of Last Use: 08/04/19 Opiates (Heroin) Substance amount: 8-10 bags Frequency of use: Daily Substance route: Inhalation (ex: sniffing or snorting) Date of Last Use: 08/04/19 Nicotine Substance amount: 4-5 ciggs Frequency of use: Daily Substance route: Smoking Date of Last Use: 08/05/19 Physical/Psych/Mental Status - Behavior General Behavior: Increased activity (restlessness, agitation) Eye Contact: Normal - Cooperativeness Cooperativeness: Cooperative - Thinking Thought Processes: Tight, Logical, Goal Directed - Physical Health Problems Is patient presently having any pain?: No Does patient presently have any injuries (include location): No Does patient currently have a fever: No Is patient : No COWS - Scale Resting Pulse: 0= [place] 80 or Below Sweatin= Beads of Sweat on Face Restless Observation: 1= Difficult to Sit Still Pupil Size: 1= Pupils >than Normal Bone or Joint Aches: 2= Severe Diffuse Aches Runny Nose/ Eye Tearin= Runny Nose/Eyes GI Upset > 30mins: 2= Nausea/Diarrhea Tremor Observation: 1= Tremor [place], Not Seen Yawning Observation: 1= 1-2x During Session Anxiety or Irritability: 2=Irritable/Anxious Goose Flesh Skin: 3=Piloerection COWS Score: 18 CIWA Nausea/Vomitin-Mild Nausea/No Vomiting Muscle Tremors: 2 Anxiety: 3 Agitation: 3 Paroxysmal Sweats: 6 Orientation: 0-Oriented Tacttile Disturbances: 2-Mild Itch/Numbness/Burn Auditory Disturbances: 0-None Visual Disturbances: 0-None Headache: 0-None Present CIWA-Ar Total Score: 17
--- NOTE | 2019-08-05 14:08 | HP ---
COWS - Scale Resting Pulse: 0= [place] 80 or Below Sweatin= Beads of Sweat on Face Restless Observation: 1= Difficult to Sit Still Pupil Size: 1= Pupils >than Normal Bone or Joint Aches: 2= Severe Diffuse Aches Runny Nose/ Eye Tearin= Runny Nose/Eyes GI Upset > 30mins: 2= Nausea/Diarrhea Tremor Observation: 1= Tremor [place], Not Seen Yawning Observation: 1= 1-2x During Session Anxiety or Irritability: 2=Irritable/Anxious Goose Flesh Skin: 3=Piloerection COWS Score: 18 CIWA Score Nausea/Vomitin-Mild Nausea/No Vomiting Muscle Tremors: 2 Anxiety: 3 Agitation: 3 Paroxysmal Sweats: 6 Orientation: 0-Oriented Tacttile Disturbances: 2-Mild Itch/Numbness/Burn Auditory Disturbances: 0-None Visual Disturbances: 0-None Headache: 0-None Present CIWA-Ar Total Score: 17 - Admission Criteria [facility]ASAS Guidelines: Admission for Medically Managed Detox: Requires at least one of the followin. CIWA greater than 12 2. Seizures within the past 24 hours 3. Delirium tremens within the past 24 hours 4. Hallucinations within the past 24 hours 5. Acute intervention needed for co occurring medical disorder 6. Acute intervention needed for co occurring psychiatric disorder 7. Severe withdrawal that cannot be handled at a lower level of care (continued vomiting, continued diarrhea, abnormal vital signs) requiring intravenous medication and/or fluids 8. Admitting History and Physical - Admission Chief Complaint: Mr. Marley presents to [facility] stating he is here because of an "overdose" of heroin last week. He also wants a detox from alcohol use disorder. History of Present Illness: Mr. Marley presents to [facility] stating he is here because of an "overdose" of heroin last week. He also wants a detox from alcohol use disorder. He was last admitted her for 5 days in June. After discharge, he relapsed immediately, PMH: CoPD, asthma, ? hx of blood clot, chronic low back pain pending MRI next month PSH: none Psych: PtSD, bipolar, depression, on Lexapro, Serolquel Substance use history Heroin: first use age 14 y, last use yesterday, 8-10 bags daily, sniff. Overdose x 2, one in May 2019, one last week. Has Narcan kit. Admits to buying street methadone. Alcohol: first use at the age of 19y, last use yesterday: 40 oz beer x2, no blackouts or seizures Nicotine: 4-5 cigs per day Appropriate for detox: high CIWA, high risk of OD, poor judgement, homeless - Past Medical History Pulmonary: Yes: Asthma, COPD - Past Surgical History Past Surgical History: Yes: None - Smoking History Smoking history: Current every day smoker Have you smoked in the past 12 months: Yes Aproximately how many cigarettes per day: 5 - Alcohol/Substance Use Hx Alcohol Use: Yes (1/2 quart beers daily) History of Substance Use: reports: Heroin Date of Last Use: 06/16/19 - Social History ADL: Independent Occupation: unemployed used to work in a [employer] History of Recent Travel: No Admission [facility] Allergies/Adverse Reactions: Allergies Allergy/AdvReac Type Severity Reaction Status Date / Time penicillin G Allergy Severe Rash Verified 06/17/19 11:33 Fish Containing Products Allergy Verified 06/17/19 11:34 Exam Limitations: No Limitations - Ebola screening Have you traveled outside of the country in the last 21 days: No Have you had contact with anyone from an Ebola affected area: No Have you been sick,other than usual withdrawal symptoms: No Do you have a fever: No - Review of Systems Constitutional: Unintentional Wgt. Loss (28 lbs weight loss in the past 4 mos) EENT: reports: No Symptoms Reported Respiratory: reports: No Symptoms reported Cardiac: reports: No Symptoms Reported GI: reports: Nausea : reports: No Symptoms Reported Musculoskeletal: reports: Back Pain, Other (bunion right and left great toe) Integumentary: reports: No Symptoms Reported Neuro: reports: No Symptoms reported Endocrine: reports: No Symptoms Reported Hematology: reports: Other (pt states no hx of blood clots) Psychiatric: reports: Agitated, Anxious, Depressed Patient History - Patient Medical History Hx Anemia: No Hx Asthma: Yes Hx Chronic Obstructive Pulmonary Disease (COPD): Yes Hx Cancer: No Hx Cardiac Disorders: No Hx Congestive Heart Failure: No Hx Hypertension: No Hx Hypercholesterolemia: Yes (In past. No medication.) Hx Pacemaker: No HX Cerebrovascular Accident: No Hx Seizures: No Hx Dementia: No Hx Diabetes: No Hx Gastrointestinal Disorders: No Hx Liver Disease: No Hx Genitourinary Disorders: No Hx Sexually Transmitted Disorders: No Hx Renal Disease (ESRD): No Hx Thyroid Disease: No Hx Human Immunodeficiency Virus (HIV): No (Last Tested: 07/2015: NEGATIVE.) Hx Hepatitis C: No (Last Tested: 07/2015: NEGATIVE.) Hx Depression: Yes Hx Suicide Attempt: No Hx Bipolar Disorder: Yes (On meds.) Hx Schizophrenia: No - Patient Surgical History Past Surgical History: No Hx Neurologic Surgery: No Hx Cataract Extraction: No Hx Cardiac Surgery: No Hx Lung Surgery: No Hx Breast Surgery: No Hx Breast Biopsy: No Hx Abdominal Surgery: No Hx Appendectomy: No Hx Cholecystectomy: No Hx Genitourinary Surgery: No Hx Section: No Hx Orthopedic Surgery: No Anesthesia Reaction: No - PPD History Date: 06/19/19 Results: 0 mm - Smoking Cessation Smoking history: Current every day smoker Have you smoked in the past 12 months: Yes Aproximately how many cigarettes per day: 5 Cigars Per Day: 0 Hx Chewing Tobacco Use: No Initiated information on smoking cessation: Yes 'Breaking Loose' booklet given: 08/05/19 - Substances abused Alcohol Substance route: Oral Amount used: 40 ounce beer x 2 daily Age of first use: 19 Date of last use: 08/04/19 Heroin Substance route: Inhalation Amount used: 8-10 bags Age of first use: 14 Date of last use: 08/04/19 Admission Physical Exam [facility] - Physical General Appearance: Yes: Mild Distress, Thin, Anxious HEENTM: Yes: EOMI, Hearing grossly Normal, Normocephalic Respiratory: Yes: Lungs Clear, Normal Breath Sounds Neck: Yes: Within Normal Limits Breast: Yes: Breast Exam Deferred Cardiology: Yes: Regular Rate, S1, S2 Abdominal: Yes: Non Tender, Flat, Soft, Decreased BS Genitourinary: Yes: Other (deferred) Back: Yes: Normal Inspection, Other (pain with getting on exam table/low back pain) Musculoskeletal: Yes: Other (as above) Extremities: Yes: Within Normal Limits Neurological: Yes: Alert Integumentary: Yes: Within Normal Limits - Diagnostic (1) Alcohol dependence with withdrawal Current Visit: Yes Status: Acute Qualifiers: Complication of substance-induced condition: uncomplicated Qualified Code(s ): F10.230 - Alcohol dependence with withdrawal, uncomplicated (2) Bipolar disorder Current Visit: Yes Status: Chronic (3) COPD with chronic bronchitis Current Visit: No Status: Chronic (4) Opioid dependence with withdrawal Current Visit: Yes Status: Acute (5) PTSD (post-traumatic stress disorder) Current Visit: Yes Status: Chronic Cleared for Admission [facility] - Detox or Rehab [facility] Level of Care: Medically Managed Detox Regimen/Protocol: Methadone/Librium Breathalyzer - Breathalyzer Breathalyzer: 0 Urine Drug Screen - Test Device Lot number: [id number] Expiration date: 05/15/21 - Control Is test valid?: Yes - Results Drug screen NEGATIVE: No Urine drug screen results: FEN-Fentanyl, MOP-Opiates, MTD-Methadone Inpatient Rehab Admission - Rehab Decision to Admit Inpatient rehab admission?: No
[2019-08-05] MEDS ORDERED: MELATONIN 5 MG TABLETS PO PRN (14:17)
[2019-08-05] MEDS ORDERED: MAG HYDROX/AL HYDROX/SIMETH 30 ML UNIT-DOSE CUP PO PRN (14:17)
[2019-08-05] MEDS ORDERED: chlordiazePOXIDE HCL 25 MG CAPSULE PO PRN (14:17)
[2019-08-05] MEDS ORDERED: MAGNESIUM CITRATE 300 ML BOTTLE PO PRN (14:17)
[2019-08-05] MEDS ORDERED: hydrOXYzine PAMOATE 25 MG CAPSULE (FP) PO PRN (14:17)
[2019-08-05] MEDS ORDERED: MENTHOL/PHENOL 1 EACH UD MM PRN (14:17)
[2019-08-05] MEDS ORDERED: IBUPROFEN 400 MG TABLET (FP) PO PRN (14:17)
[2019-08-05] MEDS ORDERED: MAGNESIUM HYDROX 2400MG/30ML ORAL SUSPENSION 30 ML CUP PO PRN (14:17)
[2019-08-05] MEDS ORDERED: ACETAMINOPHEN 325 MG TABLET (FP) PO PRN ×2 (14:17)
[2019-08-05 15:10] VITALS: BMI 20.9
[2019-08-05] MEDS ORDERED: METHADONE HCL 10 MG TABLET (FOR DETOX USE ONLY) PO ONE (15:15)
[2019-08-05] MEDS: NICOTINE 14 MG/24 HOURS TOPICAL PATCH TD SCH (15:58)
[2019-08-05 16:57] LABS: HEMATOCRIT 39.3 % (35.4-49); HEMOGLOBIN 12.9 GM/dL (11.7-16.9); MCH 30.2 pg (25.7-33.7); MCHC 32.9 g/dl (32.0-35.9); MEAN CELL VOLUME 91.8 fl (80-96); MEAN PLT VOLUME 9.4 fl (7.5-11.1); PLATELET COUNT 252 K/MM3 (134-434); RBC 4.28 M/mm3 (4.00-5.60); RDW 14.2 % (11.9-15.9); WHITE BLOOD COUNT 8.7 K/mm3 (4.0-10.0)
[2019-08-05 17:06] LABS: ALBUMIN 3.5 g/dl (3.4-5.0); BILIRUBIN,TOTAL 0.4 mg/dL (0.2-1); BLOOD UREA NITROGEN 13.8 mg/dL (7-18); CALCIUM 8.8 mg/dL (8.5-10.1); TOT PROT 6.3 g/dl (6.4-8.2)
[2019-08-05] MEDS: chlordiazePOXIDE HCL 25 MG CAPSULE PO SCH ×2 (17:35→22:24)
[2019-08-05] MEDS: THIAMINE HCL 100 MG TABLET (FP) PO SCH (22:24)
[2019-08-05] MEDS: MONTELUKAST NA 10 MG TABLET PO SCH (22:24)
[2019-08-05] MEDS: cloNIDine HCL 0.1 MG TABLET PO PRN (22:25)
[2019-08-05] MEDS: ALBUTEROL SO4 HFA INHALER IH PRN (22:29)
[2019-08-05] MEDS: BUDESONIDE/FORMETEROL FUMARATE 160/4.5 mcg INHALER IH SCH (22:29)
[2019-08-06] MEDS: chlordiazePOXIDE HCL 25 MG CAPSULE PO SCH ×4 (05:35→22:17)
[2019-08-06] MEDS: BISMUTH SUBSALICYLATE 262 MG/15 ML BTL PO PRN (05:36)
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
[2019-08-06] MEDS ORDERED: METHADONE HCL 5 MG TABLET (FOR DETOX USE ONLY) ONE (09:19)
[2019-08-06] MEDS ORDERED: METHADONE HCL 10 MG TABLET (FOR DETOX USE ONLY) ONE (09:19)
[2019-08-06] MEDS ORDERED: METHADONE (DETOX) 20 MG, METHADONE (DETOX) 5 MG PO ONE (10:00)
[2019-08-06] MEDS: BUDESONIDE/FORMETEROL FUMARATE 160/4.5 mcg INHALER IH SCH ×2 (10:49→22:18)
[2019-08-06] MEDS: PRENATAL VITAMINS W/ FOLIC ACID TABLET (FP) PO SCH (10:49)
[2019-08-06] MEDS: NICOTINE 14 MG/24 HOURS TOPICAL PATCH TD SCH (10:49)
[2019-08-06] MEDS: ESCITALOPRAM OXALATE 20 MG TABLET PO SCH (10:49)
[2019-08-06] MEDS ORDERED: LIDOCAINE 5% TOPICAL PATCH TP ONE (11:52)
--- NOTE | 2019-08-06 12:02 | PN ---
[facility] CIWA - CIWA Score Nausea/Vomitin-Mild Nausea/No Vomiting Muscle Tremors: 1-None Visible, but [place] Anxiety: 2 Agitation: 1-Slight > Activity Paroxysmal Sweats: 2 Orientation: 0-Oriented Tacttile Disturbances: 3-Moderate Itch/Numb/Burn Auditory Disturbances: 0-None Visual Disturbances: 0-None Headache: 0-None Present CIWA-Ar Total Score: 10 [facility] COWS - Scale Resting Pulse: 0= [place] 80 or Below Sweatin= Chills/Flushing Restless Observation: 1= Difficult to Sit Still Pupil Size: 1= Pupils >than Normal Bone or Joint Aches: 2= Severe Diffuse Aches Runny Nose/ Eye Tearin= Nasal Congestion GI Upset > 30mins: 1= Stomach Cramp Tremor Observation of Outstretched Hands: 1= Tremor [place], Not Seen Yawning Observation: 0= None Anxiety or Irritability: 1=Feels Anxious/Irritable Goose Flesh Skin: 0=Smooth Skin COWS Score: 9 [facility] Progress Note (SOAP) Subjective: interrupted sleep, sweats, shakes diarrhea, lbp, dry eyes Objective: 08/06/19 12:01 Vital Signs Temperature 97.7 F 08/06/19 09:18 Pulse Rate 59 L 08/06/19 09:18 Respiratory Rate 18 08/06/19 09:18 Blood Pressure 132/69 08/06/19 09:18 O2 Sat by Pulse Oximetry (%) Laboratory Tests 08/05/19 08/05/19 14:15 14:15 WBC 8.7 RBC 4.28 Hgb 12.9 Hct 39.3 MCV 91.8 MCH 30.2 MCHC 32.9 RDW 14.2 Plt Count 252 MPV 9.4 Sodium 142 Potassium 4.0 Chloride 109 H Carbon Dioxide 28 Anion Gap 5 L BUN 13.8 Creatinine 1.0 Est GFR (CKD-EPI)AfAm 97.08 Est GFR (CKD-EPI)NonAf 83.76 Random Glucose 120 H Calcium 8.8 Total Bilirubin 0.4 AST 16 ALT 22 Alkaline Phosphatase 74 Total Protein 6.3 L Albumin 3.5 pt aox3 in nad ambulating Assessment: 08/06/19 12:01 withdrawal sx's hyperglycemia lbp dry eyes 08/06/19 12:02 Plan: cont detox increase fluids artifical tears lidocaine patch nicotine gum bgm
[2019-08-06] MEDS: ARTIFICIAL TEARS (POLYVINYL ALCOHOL) OPTH DROPS OU PRN (14:43)
[2019-08-06] MEDS: NICOTINE POLACRILEX 4 MG GUM BUC PRN (14:45)
[2019-08-06] MEDS ORDERED: LIDOCAINE PATCH REMOVAL MC SCH (22:00)
[2019-08-06] MEDS: QUEtiapine FUMARATE 200 MG TABLET PO SCH (22:17)
[2019-08-06] MEDS: THIAMINE HCL 100 MG TABLET (FP) PO SCH (22:18)
[2019-08-06] MEDS: MONTELUKAST NA 10 MG TABLET PO SCH (22:18)
[2019-08-06] MEDS: LIDOCAINE PATCH REMOVAL MC SCH (22:58)
[2019-08-07] MEDS: chlordiazePOXIDE HCL 25 MG CAPSULE PO SCH ×4 (05:57→22:01)
[2019-08-07] MEDS: BISMUTH SUBSALICYLATE 262 MG/15 ML BTL PO PRN (05:59)
[2019-08-07] MEDS ORDERED: METHADONE HCL 10 MG TABLET (FOR DETOX USE ONLY) PO ONE (10:00)
[2019-08-07] MEDS ORDERED: TRIMETHOBENZAMIDE HCL 300 MG CAPSULE PO PRN (10:09)
[2019-08-07] MEDS: ESCITALOPRAM OXALATE 20 MG TABLET PO SCH (10:31)
[2019-08-07] MEDS: PRENATAL VITAMINS W/ FOLIC ACID TABLET (FP) PO SCH (10:31)
[2019-08-07] MEDS: LIDOCAINE 5% TOPICAL PATCH TP SCH (10:32)
[2019-08-07] MEDS: BUDESONIDE/FORMETEROL FUMARATE 160/4.5 mcg INHALER IH SCH ×2 (10:34→22:01)
[2019-08-07] MEDS: ARTIFICIAL TEARS (POLYVINYL ALCOHOL) OPTH DROPS OU PRN (10:37)
--- NOTE | 2019-08-07 16:40 | PN ---
[facility] CIWA - CIWA Score Nausea/Vomitin Muscle Tremors: None Anxiety: 4-Mod. Anxious/Guarded Agitation: 3 Paroxysmal Sweats: 2 (Chills.) Orientation: 0-Oriented Tacttile Disturbances: 2-Mild Itch/Numbness/Burn Auditory Disturbances: 0-None Visual Disturbances: 0-None Headache: 0-None Present CIWA-Ar Total Score: 14 S COWS - Scale Resting Pulse: 0= [place] 80 or Below Sweatin= Chills/Flushing Restless Observation: 1= Difficult to Sit Still Pupil Size: 0= Normal to Room Light Bone or Joint Aches: 2= Severe Diffuse Aches Runny Nose/ Eye Tearin= None GI Upset > 30mins: 2= Nausea/Diarrhea Tremor Observation of Outstretched Hands: 0= None Yawning Observation: 1= 1-2x During Session Anxiety or Irritability: 2=Irritable/Anxious Goose Flesh Skin: 3=Piloerection COWS Score: 12 S Progress Note (SOAP) Subjective: Chills, Nausea, Stomach Upset, Body Aches, Anxious. Objective: PATIENT A & O X 3, OBSERVED AMBULATING ON DETOX UNIT UNASSISTED. IN NO ACUTE DISTRESS. 08/07/19 16:42 Vital Signs Temperature 98.2 F 08/07/19 12:48 Pulse Rate 62 08/07/19 12:48 Respiratory Rate 18 08/07/19 12:48 Blood Pressure 132/78 08/07/19 12:48 O2 Sat by Pulse Oximetry (%) Laboratory Tests 08/05/19 08/05/19 08/05/19 14:15 14:15 14:15 WBC 8.7 RBC 4.28 Hgb 12.9 Hct 39.3 MCV 91.8 MCH 30.2 MCHC 32.9 RDW 14.2 Plt Count 252 MPV 9.4 Sodium 142 Potassium 4.0 Chloride 109 H Carbon Dioxide 28 Anion Gap 5 L BUN 13.8 Creatinine 1.0 Est GFR (CKD-EPI)AfAm 97.08 Est GFR (CKD-EPI)NonAf 83.76 Random Glucose 120 H Calcium 8.8 Total Bilirubin 0.4 AST 16 ALT 22 Alkaline Phosphatase 74 Total Protein 6.3 L Albumin 3.5 RPR Titer Nonreactive LABS NOTED. Assessment: 08/07/19 16:42 WITHDRAWAL SYMPTOMS. Plan: CONTINUE DETOX. INCREASE DAILY ORAL WATER INTAKE. PRN [place] ORAL FOR STOMACH UPSET.
[2019-08-07] MEDS: LIDOCAINE PATCH REMOVAL MC SCH (21:57)
[2019-08-07] MEDS: THIAMINE HCL 100 MG TABLET (FP) PO SCH (22:00)
[2019-08-07] MEDS: QUEtiapine FUMARATE 200 MG TABLET PO SCH (22:00)
[2019-08-07] MEDS: cloNIDine HCL 0.1 MG TABLET PO PRN (22:00)
[2019-08-07] MEDS: MONTELUKAST NA 10 MG TABLET PO SCH (22:00)
[2019-08-08] MEDS ORDERED: chlordiazePOXIDE HCL 10 MG CAPSULE PO PRN
[2019-08-08] MEDS: chlordiazePOXIDE HCL 10 MG CAPSULE PO SCH ×4 (06:58→22:45)
[2019-08-08] MEDS ORDERED: METHADONE (DETOX) 10 MG, METHADONE (DETOX) 5 MG PO ONE (10:00)
[2019-08-08] MEDS ORDERED: METHADONE HCL 10 MG TABLET (FOR DETOX USE ONLY) ONE (10:00)
[2019-08-08] MEDS ORDERED: METHADONE HCL 5 MG TABLET (FOR DETOX USE ONLY) ONE (10:00)
[2019-08-08] MEDS: BUDESONIDE/FORMETEROL FUMARATE 160/4.5 mcg INHALER IH SCH ×2 (10:45→22:45)
[2019-08-08] MEDS: PRENATAL VITAMINS W/ FOLIC ACID TABLET (FP) PO SCH (10:46)
[2019-08-08] MEDS: LIDOCAINE 5% TOPICAL PATCH TP SCH (10:46)
[2019-08-08] MEDS: ESCITALOPRAM OXALATE 20 MG TABLET PO SCH (10:46)
[2019-08-08] MEDS: METHOCARBAMOL 500 MG TABLET PO PRN (10:48)
[2019-08-08] MEDS: NICOTINE POLACRILEX 4 MG GUM BUC PRN (10:50)
--- NOTE | 2019-08-08 15:02 | PN ---
[facility] CIWA - CIWA Score Nausea/Vomitin-Mild Nausea/No Vomiting Muscle Tremors: 3 Anxiety: 2 Agitation: 2 Paroxysmal Sweats: 2 Orientation: 0-Oriented Tacttile Disturbances: 0-None Auditory Disturbances: 0-None Visual Disturbances: 0-None Headache: 0-None Present CIWA-Ar Total Score: 10 [facility] COWS - Scale Resting Pulse: 0= [place] 80 or Below Sweatin= Chills/Flushing Restless Observation: 0= Sits Still Pupil Size: 0= Normal to Room Light Bone or Joint Aches: 2= Severe Diffuse Aches Runny Nose/ Eye Tearin= Runny Nose/Eyes GI Upset > 30mins: 2= Nausea/Diarrhea Tremor Observation of Outstretched Hands: 2= Slight Tremor Visible Yawning Observation: 0= None Anxiety or Irritability: 1=Feels Anxious/Irritable Goose Flesh Skin: 0=Smooth Skin COWS Score: 10 [facility] Progress Note (SOAP) Subjective: Interrupted sleep Objective: 08/08/19 15:01 Last Vital Signs Temp Pulse Resp BP Pulse Ox 97.7 F 63 16 122/69 08/08/19 12:55 08/08/19 12:55 08/08/19 12:55 08/08/19 12:55 Laboratory Tests 08/05/19 08/05/19 08/05/19 14:15 14:15 14:15 WBC 8.7 RBC 4.28 Hgb 12.9 Hct 39.3 MCV 91.8 MCH 30.2 MCHC 32.9 RDW 14.2 Plt Count 252 MPV 9.4 Sodium 142 Potassium 4.0 Chloride 109 H Carbon Dioxide 28 Anion Gap 5 L BUN 13.8 Creatinine 1.0 Est GFR (CKD-EPI)AfAm 97.08 Est GFR (CKD-EPI)NonAf 83.76 Random Glucose 120 H Calcium 8.8 Total Bilirubin 0.4 AST 16 ALT 22 Alkaline Phosphatase 74 Total Protein 6.3 L Albumin 3.5 RPR Titer Nonreactive Labs reviewed: serum glucose 120mg/dl (high) Assessment: 08/08/19 15:03 Withdrawal sxs Hyperglycemia noted Plan: Continue detox Encouraged PO water intake Hyperglycemia: denies DM, could be r/t withdrawal, repeat fasting glucose, send A1c
[2019-08-08] MEDS: BISMUTH SUBSALICYLATE 262 MG/15 ML BTL PO PRN (19:51)
[2019-08-08] MEDS: QUEtiapine FUMARATE 200 MG TABLET PO SCH (22:36)
[2019-08-08] MEDS: THIAMINE HCL 100 MG TABLET (FP) PO SCH (22:36)
[2019-08-08] MEDS: MONTELUKAST NA 10 MG TABLET PO SCH (22:38)
[2019-08-08] MEDS: LIDOCAINE PATCH REMOVAL MC SCH (22:45)
[2019-08-09] MEDS: NICOTINE POLACRILEX 4 MG GUM BUC PRN ×3 (05:28→22:35)
[2019-08-09] MEDS: chlordiazePOXIDE HCL 10 MG CAPSULE PO SCH ×2 (05:28→17:02)
[2019-08-09] MEDS: BISMUTH SUBSALICYLATE 262 MG/15 ML BTL PO PRN (05:29)
--- NOTE | 2019-08-09 09:22 | PN ---
[facility] CIWA - CIWA Score Nausea/Vomitin-Mild Nausea/No Vomiting Muscle Tremors: 2 Anxiety: 1-Mildly Anxious Agitation: 2 Paroxysmal Sweats: 2 Orientation: 0-Oriented Tacttile Disturbances: 0-None Auditory Disturbances: 0-None Visual Disturbances: 0-None Headache: 0-None Present CIWA-Ar Total Score: 8 [facility] COWS - Scale Resting Pulse: 1= [place] 81-100 Sweatin= Chills/Flushing Restless Observation: 1= Difficult to Sit Still Pupil Size: 1= Pupils >than Normal Bone or Joint Aches: 1= Mild Discomfort Runny Nose/ Eye Tearin= Nasal Congestion GI Upset > 30mins: 1= Stomach Cramp Tremor Observation of Outstretched Hands: 1= Tremor [place], Not Seen Yawning Observation: 1= 1-2x During Session Anxiety or Irritability: 1=Feels Anxious/Irritable Goose Flesh Skin: 3=Piloerection COWS Score: 13 [facility] Progress Note (SOAP) Subjective: pt admitted for dual detox. No complaints today. Anticipate d/c on 08/10. O: Vital Signs - 24 hr 08/08/19 08/08/19 08/08/19 12:55 16:30 20:52 Temperature 97.7 F 98.1 F 98.8 F Pulse Rate 63 62 60 Respiratory 16 16 18 Rate Blood Pressure 122/69 118/68 121/67 08/09/19 08/09/19 03:39 06:30 Temperature 97.5 F L Pulse Rate 59 L Respiratory 18 18 Rate Blood Pressure 104/58 L Laboratory Tests 08/05/19 08/05/19 08/05/19 14:15 14:15 14:15 WBC 8.7 RBC 4.28 Hgb 12.9 Hct 39.3 MCV 91.8 MCH 30.2 MCHC 32.9 RDW 14.2 Plt Count 252 MPV 9.4 Sodium 142 Potassium 4.0 Chloride 109 H Carbon Dioxide 28 Anion Gap 5 L BUN 13.8 Creatinine 1.0 Est GFR (CKD-EPI)AfAm 97.08 Est GFR (CKD-EPI)NonAf 83.76 POC Glucometer Random Glucose 120 H Calcium 8.8 Total Bilirubin 0.4 AST 16 ALT 22 Alkaline Phosphatase 74 Total Protein 6.3 L Albumin 3.5 RPR Titer Nonreactive 08/09/19 05:43 WBC RBC Hgb Hct MCV MCH MCHC RDW Plt Count MPV Sodium Potassium Chloride Carbon Dioxide Anion Gap BUN Creatinine Est GFR (CKD-EPI)AfAm Est GFR (CKD-EPI)NonAf POC Glucometer 90 Random Glucose Calcium Total Bilirubin AST ALT Alkaline Phosphatase Total Protein Albumin RPR Titer a/p: continue dual detox: pt doing well, would like to go to rehab
[2019-08-09] MEDS ORDERED: METHADONE HCL 10 MG TABLET (FOR DETOX USE ONLY) PO ONE (10:00)
[2019-08-09] MEDS: LIDOCAINE 5% TOPICAL PATCH TP SCH (10:25)
[2019-08-09] MEDS: ESCITALOPRAM OXALATE 20 MG TABLET PO SCH (10:25)
[2019-08-09] MEDS: PRENATAL VITAMINS W/ FOLIC ACID TABLET (FP) PO SCH (10:25)
[2019-08-09] MEDS: BUDESONIDE/FORMETEROL FUMARATE 160/4.5 mcg INHALER IH SCH ×2 (10:26→21:36)
[2019-08-09] MEDS: ALBUTEROL SO4 HFA INHALER IH PRN (10:26)
[2019-08-09] MEDS: QUEtiapine FUMARATE 200 MG TABLET PO SCH (21:05)
[2019-08-09] MEDS: MONTELUKAST NA 10 MG TABLET PO SCH (21:05)
[2019-08-09] MEDS: THIAMINE HCL 100 MG TABLET (FP) PO SCH (21:05)
[2019-08-09] MEDS: LIDOCAINE PATCH REMOVAL MC SCH (21:36)
[2019-08-10] MEDS: METHOCARBAMOL 500 MG TABLET PO PRN (00:49)
[2019-08-10] MEDS ORDERED: chlordiazePOXIDE HCL 10 MG CAPSULE PO ONE (05:00)
[2019-08-10] MEDS: BISMUTH SUBSALICYLATE 262 MG/15 ML BTL PO PRN (05:43)
[2019-08-10] MEDS ORDERED: METHADONE HCL 5 MG TABLET (FOR DETOX USE ONLY) PO ONE (06:00)
[2019-08-10] MEDS: ESCITALOPRAM OXALATE 20 MG TABLET PO SCH (10:14)
[2019-08-10] MEDS: BUDESONIDE/FORMETEROL FUMARATE 160/4.5 mcg INHALER IH SCH (10:14)
[2019-08-10] MEDS: PRENATAL VITAMINS W/ FOLIC ACID TABLET (FP) PO SCH (10:14)
[2019-08-10] MEDS: LIDOCAINE 5% TOPICAL PATCH TP SCH (10:15)
[2019-08-10] MEDS: NICOTINE POLACRILEX 4 MG GUM BUC PRN (10:16)
--- NOTE | 2019-08-10 10:31 | PN ---
[facility] CIWA - CIWA Score Nausea/Vomitin-No Nausea/No Vomiting Muscle Tremors: None Anxiety: 1-Mildly Anxious Agitation: 0-Normal Activity Paroxysmal Sweats: No Perspiration Orientation: 0-Oriented Tacttile Disturbances: 0-None Auditory Disturbances: 0-None Visual Disturbances: 0-None Headache: 0-None Present CIWA-Ar Total Score: 1 [facility] COWS - Scale Resting Pulse: 0= [place] 80 or Below Sweatin= No chills or Flushing Restless Observation: 0= Sits Still Pupil Size: 0= Normal to Room Light Bone or Joint Aches: 0= None Runny Nose/ Eye Tearin= None GI Upset > 30mins: 0= None Tremor Observation of Outstretched Hands: 0= None Yawning Observation: 0= None Anxiety or Irritability: 1=Feels Anxious/Irritable Goose Flesh Skin: 0=Smooth Skin COWS Score: 1 [facility] Progress Note (SOAP) Subjective: alert,no complaint Objective: 08/10/19 10:30 Vital Signs Temperature 97.9 F 08/10/19 08:47 Pulse Rate 66 08/10/19 08:47 Respiratory Rate 18 08/10/19 08:47 Blood Pressure 150/78 08/10/19 08:47 O2 Sat by Pulse Oximetry (%) Assessment: 08/10/19 10:30 detox completed,no withdrawal symptom Plan: discharge today,follow up [facility]
--- NOTE | 2019-08-10 10:37 | DS ---
[facility] Detox Discharge Summary Admission Date: 08/05/19 Discharge Date: 08/10/19 - History Present History: Alcohol Dependence, Opioid Dependence Additional Comments: alert,oriented x 3 ambulation on unit heart normal heart sound,s1s2 lung clear,no wheezing no abdominal pain stable for discharge to go to [facility] time spnding on discharge 35 mins Pertinent Past History: copd bipolar disorder low back pain - Physical Exam Results Vital Signs: Vital Signs Temperature 97.9 F 08/10/19 08:47 Pulse Rate 66 08/10/19 08:47 Respiratory Rate 18 08/10/19 08:47 Blood Pressure 150/78 08/10/19 08:47 O2 Sat by Pulse Oximetry (%) Pertinent Admission Physical Exam Findings: withdrawal signs and symptom Laboratory Last Values WBC 8.7 K/mm3 (4.0-10.0) 08/05/19 14:15 RBC 4.28 M/mm3 (4.00-5.60) 08/05/19 14:15 Hgb 12.9 GM/dL (11.7-16.9) 08/05/19 14:15 Hct 39.3 % (35.4-49) 08/05/19 14:15 MCV 91.8 fl (80-96) 08/05/19 14:15 MCH 30.2 pg (25.7-33.7) 08/05/19 14:15 MCHC 32.9 g/dl (32.0-35.9) 08/05/19 14:15 RDW 14.2 % (11.9-15.9) 08/05/19 14:15 Plt Count 252 K/MM3 (134-434) 08/05/19 14:15 MPV 9.4 fl (7.5-11.1) 08/05/19 14:15 Sodium 142 mmol/L (136-145) 08/05/19 14:15 Potassium 4.0 mmol/L (3.5-5.1) 08/05/19 14:15 Chloride 109 mmol/L (98-107) H 08/05/19 14:15 Carbon Dioxide 28 mmol/L (21-32) 08/05/19 14:15 Anion Gap 5 MMOL/L (8-16) L 08/05/19 14:15 BUN 13.8 mg/dL (7-18) 08/05/19 14:15 Creatinine 1.0 mg/dL (0.55-1.3) 08/05/19 14:15 Est GFR (CKD-EPI)AfAm 97.08 08/05/19 14:15 Est GFR (CKD-EPI)NonAf 83.76 08/05/19 14:15 POC Glucometer 84 UNITS (80-120) 08/10/19 05:51 Random Glucose 120 mg/dL (74-106) H 08/05/19 14:15 Fasting Glucose 92 mg/dL (74-106) 08/09/19 07:30 Hemoglobin A1c % 5.2 % (4.2-6.3) 08/09/19 07:30 Calcium 8.8 mg/dL (8.5-10.1) 08/05/19 14:15 Total Bilirubin 0.4 mg/dL (0.2-1) 08/05/19 14:15 AST 16 U/L (15-37) 08/05/19 14:15 ALT 22 U/L (13-61) 08/05/19 14:15 Alkaline Phosphatase 74 U/L (45-117) 08/05/19 14:15 Total Protein 6.3 g/dl (6.4-8.2) L 08/05/19 14:15 Albumin 3.5 g/dl (3.4-5.0) 08/05/19 14:15 RPR Titer Nonreactive (NONREACTIVE) 08/05/19 14:15 Vital Signs Temperature 97.9 F 08/10/19 08:47 Pulse Rate 66 08/10/19 08:47 Respiratory Rate 18 08/10/19 08:47 Blood Pressure 150/78 08/10/19 08:47 O2 Sat by Pulse Oximetry (%) - Treatment Hospital Course: Detox Protocol Followed, Detoxed Safely, Responded well, Discharged Condition Good Patient has Accepted a Rehab Referral to: [facility] - Medication Discharge Medications: Ambulatory Orders Escitalopram Oxalate [Lexapro -] 20 mg PO DAILY 11/04/16 Ipratropium [place] [Atrovent Hfa] 1 inh IH BID #1 inh 11/20/16 Gabapentin [Neurontin] 200 mg PO BID 06/17/19 Naproxen [Naprosyn -] 250 mg PO BID 06/17/19 Quetiapine Fumarate [Seroquel] 200 mg PO HS 06/17/19 Ranitidine HCl 150 mg PO DAILY 06/17/19 Albuterol Sulfate Inhaler - [Ventolin HFA Inhaler -] 2 inh IH Q4H PRN #1 inh 01/02 Budesonide/Formeterol Fumarate [SYMBICORT 160/4.5mcg -] 1 inh PO BID #1 inhaler 06/22/19 Lidocaine 5% Patch [Lidoderm -] 1 patch TP DAILY #60 patch 06/22/19 Montelukast Na [Singulair -] 10 mg PO HS #30 tablet 06/22/19 - Diagnosis (1) Opioid dependence with withdrawal Current Visit: Yes Status: Acute (2) Alcohol dependence with withdrawal Current Visit: Yes Status: Acute Qualifiers: Complication of substance-induced condition: uncomplicated Qualified Code(s ): F10.230 - Alcohol dependence with withdrawal, uncomplicated (3) Chronic low back pain Current Visit: Yes Status: Acute (4) Bipolar disorder Current Visit: Yes Status: Chronic (5) PTSD (post-traumatic stress disorder) Current Visit: Yes Status: Chronic (6) Insomnia Current Visit: No Status: Acute (7) COPD with chronic bronchitis Current Visit: No Status: Chronic (8) Nicotine dependence Current Visit: No Status: Chronic Qualifiers: Nicotine product type: cigarettes Substance use status: uncomplicated Qualified Code(s): F17.210 - Nicotine dependence, cigarettes, uncomplicated - AMA Did Patient Leave Against Medical Advice: No
--- NOTE | 2019-08-10 10:41 | HP ---
[facility] Rehab Assess/Revision - Admission History Admitted to Rehab from: [address] Date of Admission to Rehab: 08/10/2019 - Vital signs Vital Signs: Vital Signs Period Temp Pulse Resp BP Sys/Cormier Pulse Ox Last 24 Hr 97.7 F-98.4 F 61-70 18-18 122-150/65-88 - Findings Detox History & Physical reviewed: Yes Concur with findings: Yes Comments/Additional Findings: for rehab as protocol Inpatient Rehab Admission - Rehab Decision to Admit Inpatient rehab admission?: Yes - Initial Determination Are CD services needed?: Yes Free of communicable disease: Yes Not in need of hospitalization: Yes - Rehab Admission Criteria Previous failed treatment: Yes Poor recovery environment: Yes Comorbidities: Yes Lacks judgement: No Patient is meeting Inpatient Rehab admission criteria:: Yes
[2019-08-10 13:10] VITALS: BP 136/80; PULSE 70; TEMP 98.2
== END 2019-08-10 17:53 | disposition other institution (70) | DRG 773 ==
LOC: YASAS 12:41 → Y6N 15:03
PROVIDERS: ADMIT Allergy & Immunology; ATTEND Allergy & Immunology
PROC: HZ2ZZZZ Detoxification Services for Substance Abuse Treatment (ICD-10-PCS; principal; 2019-08-05)
DX: F11.23 Opioid dependence with withdrawal (principal); F10.230 Alcohol dependence with withdrawal, uncomplicated; F17.210 Nicotine dependence, cigarettes, uncomplicated; F19.24 Other psychoactive substance dependence with psychoactive substance-induced mood disorder; F19.282 Other psychoactive substance dependence with psychoactive substance-induced sleep disorder; F31.9 Bipolar disorder, unspecified; F43.10 Post-traumatic stress disorder, unspecified; G47.00 Insomnia, unspecified; J44.9 Chronic obstructive pulmonary disease, unspecified; H04.123 Dry eye syndrome of bilateral lacrimal glands; M54.5 Low back pain; G89.29 Other chronic pain; Z88.0 Allergy status to penicillin; Z91.013 Allergy to seafood
CPT/HCPCS: 36415; 80053; 82947; 82962; 83036; 85027; 86593; J0735

== ENCOUNTER 2019-08-10 17:58 | Inpatient (IN) | payer OTHER ==
[2019-08-10] MEDS ORDERED: LOPERAMIDE HCL 2 MG CAPSULE PO PRN (19:32)
[2019-08-10] MEDS ORDERED: ACETAMINOPHEN 325 MG TABLET (FP) PO PRN (19:32)
[2019-08-10] MEDS ORDERED: guaiFENesin 200 MG/10 ML 10 ML UNIT-DOSE CUPS PO PRN (19:32)
[2019-08-10] MEDS ORDERED: MAGNESIUM HYDROX 2400MG/30ML ORAL SUSPENSION 30 ML CUP PO PRN (19:32)
[2019-08-10] MEDS ORDERED: MENTHOL/PHENOL 1 EACH UD MM PRN (19:32)
[2019-08-10] MEDS ORDERED: MAGNESIUM CITRATE 300 ML BOTTLE PO PRN (19:32)
[2019-08-10] MEDS ORDERED: IBUPROFEN 400 MG TABLET (FP) PO PRN (19:32)
[2019-08-10] MEDS ORDERED: MAG HYDROX/AL HYDROX/SIMETH 30 ML UNIT-DOSE CUP PO PRN (19:32)
[2019-08-10] MEDS ORDERED: P-EPHED 60MG/TRIPROLIDI 2.5MG TABLET PO PRN (19:32)
[2019-08-10] MEDS: THIAMINE HCL 100 MG TABLET (FP) PO SCH (21:25)
[2019-08-10] MEDS: MONTELUKAST NA 10 MG TABLET PO SCH (21:25)
[2019-08-10] MEDS: BUDESONIDE/FORMETEROL FUMARATE 160/4.5 mcg INHALER IH SCH (21:26)
[2019-08-10] MEDS: MELATONIN 5 MG TABLETS PO PRN (21:27)
[2019-08-11] MEDS: PRENATAL VITAMINS W/ FOLIC ACID TABLET (FP) PO SCH (10:11)
[2019-08-11] MEDS: BUDESONIDE/FORMETEROL FUMARATE 160/4.5 mcg INHALER IH SCH ×2 (10:11→21:52)
[2019-08-11] MEDS: ALBUTEROL SO4 HFA INHALER IH PRN ×2 (10:12→21:52)
[2019-08-11] MEDS ORDERED: NAPROXEN 250 MG TABLET PO PRN (10:30)
[2019-08-11] MEDS ORDERED: BISMUTH SUBSALICYLATE 524 MG/30 ML UD PO PRN (10:45)
--- NOTE | 2019-08-11 10:50 | PN ---
[facility] Progress Note Note: Pt is a 54 y/o male with a hx of JORGE admitted to rehab
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
[2019-08-11] MEDS: NAPROXEN 250 MG TABLET PO PRN (11:46)
[2019-08-11] MEDS: ARTIFICIAL TEARS (POLYVINYL ALCOHOL) OPTH DROPS OU PRN (11:47)
[2019-08-11] MEDS: LIDOCAINE 5% TOPICAL PATCH TP SCH (11:48)
[2019-08-11] MEDS: ESCITALOPRAM OXALATE 20 MG TABLET PO SCH (12:49)
[2019-08-11] MEDS: BISMUTH SUBSALICYLATE 524 MG/30 ML UD PO PRN (12:52)
[2019-08-11] MEDS: NICOTINE POLACRILEX 4 MG GUM BUC PRN (12:53)
[2019-08-11] MEDS: THIAMINE HCL 100 MG TABLET (FP) PO SCH (21:51)
[2019-08-11] MEDS: LIDOCAINE PATCH REMOVAL MC SCH (21:51)
[2019-08-11] MEDS: QUEtiapine FUMARATE 200 MG TABLET PO SCH (21:52)
[2019-08-11] MEDS: MONTELUKAST NA 10 MG TABLET PO SCH (21:52)
[2019-08-11] MEDS ORDERED: FAMOTIDINE 20 MG TABLET PO SCH (22:00)
[2019-08-12] MEDS: ESCITALOPRAM OXALATE 20 MG TABLET PO SCH (10:23)
[2019-08-12] MEDS: PRENATAL VITAMINS W/ FOLIC ACID TABLET (FP) PO SCH (10:23)
[2019-08-12] MEDS: BUDESONIDE/FORMETEROL FUMARATE 160/4.5 mcg INHALER IH SCH ×2 (10:24→21:40)
[2019-08-12] MEDS: LIDOCAINE 5% TOPICAL PATCH TP SCH (10:24)
[2019-08-12] MEDS: NAPROXEN 250 MG TABLET PO PRN (10:25)
[2019-08-12] MEDS ORDERED: LORATADINE 10 MG TABLET PO SCH (12:00)
[2019-08-12] MEDS: ALBUTEROL SO4 HFA INHALER IH PRN (21:40)
[2019-08-12] MEDS: THIAMINE HCL 100 MG TABLET (FP) PO SCH (21:41)
[2019-08-12] MEDS: MONTELUKAST NA 10 MG TABLET PO SCH (21:41)
[2019-08-12] MEDS: QUEtiapine FUMARATE 200 MG TABLET PO SCH (21:41)
[2019-08-12] MEDS: MELATONIN 5 MG TABLETS PO PRN (21:42)
[2019-08-12] MEDS: ARTIFICIAL TEARS (POLYVINYL ALCOHOL) OPTH DROPS OU PRN (21:43)
[2019-08-12] MEDS: LIDOCAINE PATCH REMOVAL MC SCH (22:24)
[2019-08-13] MEDS: ARTIFICIAL TEARS (POLYVINYL ALCOHOL) OPTH DROPS OU PRN ×2 (06:45→21:32)
[2019-08-13] MEDS: NICOTINE POLACRILEX 4 MG GUM BUC PRN (07:50)
[2019-08-13] MEDS: BUDESONIDE/FORMETEROL FUMARATE 160/4.5 mcg INHALER IH SCH ×2 (09:44→21:32)
[2019-08-13] MEDS: ESCITALOPRAM OXALATE 20 MG TABLET PO SCH (09:44)
[2019-08-13] MEDS: PRENATAL VITAMINS W/ FOLIC ACID TABLET (FP) PO SCH (09:44)
[2019-08-13] MEDS: LIDOCAINE 5% TOPICAL PATCH TP SCH (09:45)
--- NOTE | 2019-08-13 13:00 | HP ---
[facility] Rehab Assess/Revision - Admission History Admitted to Rehab from: [address] Date of Admission to Rehab: 08/11/19 - Vital signs Vital Signs: Vital Signs Period Temp Pulse Resp BP Sys/Cormier Pulse Ox Last 24 Hr 97.8 F 65 16-18 107/80 - Findings Detox History & Physical reviewed: Yes Concur with findings: Yes Comments/Additional Findings: Pt is a 54 y/o male with a hx of JORGE-heroin, alcohol admitted to rehab from [address] [place] [address] detox. Hx Overdose x 2-05/2019 and week before detox admission here per H/P. PMHx:Asthma,COPD,Chronic LBP(MRI Pending next month per H/P). Psych Hx:Bipolar d/o. extremities/skin:no edema;skin intact. Inpatient Rehab Admission - Rehab Decision to Admit Inpatient rehab admission?: Yes - Initial Determination Are CD services needed?: Yes Free of communicable disease: Yes Not in need of hospitalization: Yes - Rehab Admission Criteria Previous failed treatment: Yes Poor recovery environment: Yes Comorbidities: Yes Lacks judgement: Yes Patient is meeting Inpatient Rehab admission criteria:: Yes
[2019-08-13] MEDS: LIDOCAINE PATCH REMOVAL MC SCH (21:32)
[2019-08-13] MEDS: QUEtiapine FUMARATE 200 MG TABLET PO SCH (21:33)
[2019-08-13] MEDS: MELATONIN 5 MG TABLETS PO PRN (21:33)
[2019-08-13] MEDS: THIAMINE HCL 100 MG TABLET (FP) PO SCH (21:33)
[2019-08-13] MEDS: MONTELUKAST NA 10 MG TABLET PO SCH (21:33)
[2019-08-14] MEDS: PRENATAL VITAMINS W/ FOLIC ACID TABLET (FP) PO SCH (10:10)
[2019-08-14] MEDS: ESCITALOPRAM OXALATE 20 MG TABLET PO SCH (10:10)
[2019-08-14] MEDS: LIDOCAINE 5% TOPICAL PATCH TP SCH (10:10)
[2019-08-14] MEDS: BUDESONIDE/FORMETEROL FUMARATE 160/4.5 mcg INHALER IH SCH ×2 (10:11→21:33)
[2019-08-14] MEDS: ALBUTEROL SO4 HFA INHALER IH PRN (10:12)
[2019-08-14] MEDS: LIDOCAINE PATCH REMOVAL MC SCH (21:32)
[2019-08-14] MEDS: QUEtiapine FUMARATE 200 MG TABLET PO SCH (21:32)
[2019-08-14] MEDS: THIAMINE HCL 100 MG TABLET (FP) PO SCH (21:33)
[2019-08-14] MEDS: MONTELUKAST NA 10 MG TABLET PO SCH (21:33)
[2019-08-15] MEDS: ESCITALOPRAM OXALATE 20 MG TABLET PO SCH (10:07)
[2019-08-15] MEDS: LIDOCAINE 5% TOPICAL PATCH TP SCH (10:07)
[2019-08-15] MEDS: BUDESONIDE/FORMETEROL FUMARATE 160/4.5 mcg INHALER IH SCH ×2 (10:08→21:32)
[2019-08-15] MEDS: ALBUTEROL SO4 HFA INHALER IH PRN (10:08)
[2019-08-15] MEDS: PRENATAL VITAMINS W/ FOLIC ACID TABLET (FP) PO SCH (10:08)
[2019-08-15] MEDS: BISMUTH SUBSALICYLATE 524 MG/30 ML UD PO PRN (10:08)
[2019-08-15] MEDS: NICOTINE POLACRILEX 4 MG GUM BUC PRN ×2 (11:08→17:55)
[2019-08-15] MEDS: THIAMINE HCL 100 MG TABLET (FP) PO SCH (21:31)
[2019-08-15] MEDS: LIDOCAINE PATCH REMOVAL MC SCH (21:31)
[2019-08-15] MEDS: MELATONIN 5 MG TABLETS PO PRN (21:31)
[2019-08-15] MEDS: MONTELUKAST NA 10 MG TABLET PO SCH (21:31)
[2019-08-15] MEDS: QUEtiapine FUMARATE 200 MG TABLET PO SCH (21:31)
[2019-08-16] MEDS: LIDOCAINE 5% TOPICAL PATCH TP SCH (09:43)
[2019-08-16] MEDS: ESCITALOPRAM OXALATE 20 MG TABLET PO SCH (09:43)
[2019-08-16] MEDS: BUDESONIDE/FORMETEROL FUMARATE 160/4.5 mcg INHALER IH SCH ×2 (09:43→22:05)
[2019-08-16] MEDS: PRENATAL VITAMINS W/ FOLIC ACID TABLET (FP) PO SCH (09:43)
[2019-08-16] MEDS: NAPROXEN 250 MG TABLET PO PRN (09:44)
[2019-08-16] MEDS: BISMUTH SUBSALICYLATE 524 MG/30 ML UD PO PRN ×2 (09:46→21:29)
[2019-08-16] MEDS: NICOTINE POLACRILEX 4 MG GUM BUC PRN (12:25)
[2019-08-16] MEDS: LIDOCAINE PATCH REMOVAL MC SCH (21:28)
[2019-08-16] MEDS: QUEtiapine FUMARATE 200 MG TABLET PO SCH (21:29)
[2019-08-16] MEDS: MONTELUKAST NA 10 MG TABLET PO SCH (21:29)
[2019-08-16] MEDS: THIAMINE HCL 100 MG TABLET (FP) PO SCH (22:05)
[2019-08-17] MEDS: LIDOCAINE 5% TOPICAL PATCH TP SCH (10:31)
[2019-08-17] MEDS: PRENATAL VITAMINS W/ FOLIC ACID TABLET (FP) PO SCH (10:31)
[2019-08-17] MEDS: ESCITALOPRAM OXALATE 20 MG TABLET PO SCH (10:31)
[2019-08-17] MEDS: BUDESONIDE/FORMETEROL FUMARATE 160/4.5 mcg INHALER IH SCH ×2 (10:32→21:24)
[2019-08-17] MEDS: ARTIFICIAL TEARS (POLYVINYL ALCOHOL) OPTH DROPS OU PRN (14:24)
[2019-08-17] MEDS: BISMUTH SUBSALICYLATE 524 MG/30 ML UD PO PRN (14:25)
[2019-08-17] MEDS: NICOTINE POLACRILEX 4 MG GUM BUC PRN (17:15)
[2019-08-17] MEDS: QUEtiapine FUMARATE 200 MG TABLET PO SCH (21:24)
[2019-08-17] MEDS: MONTELUKAST NA 10 MG TABLET PO SCH (21:24)
[2019-08-17] MEDS: LIDOCAINE PATCH REMOVAL MC SCH (21:24)
[2019-08-17] MEDS: THIAMINE HCL 100 MG TABLET (FP) PO SCH (21:25)
[2019-08-18] MEDS: LIDOCAINE 5% TOPICAL PATCH TP SCH (10:20)
[2019-08-18] MEDS: ESCITALOPRAM OXALATE 20 MG TABLET PO SCH (10:20)
[2019-08-18] MEDS: PRENATAL VITAMINS W/ FOLIC ACID TABLET (FP) PO SCH (10:20)
[2019-08-18] MEDS: BUDESONIDE/FORMETEROL FUMARATE 160/4.5 mcg INHALER IH SCH ×2 (10:21→21:26)
[2019-08-18] MEDS: QUEtiapine FUMARATE 200 MG TABLET PO SCH (21:25)
[2019-08-18] MEDS: THIAMINE HCL 100 MG TABLET (FP) PO SCH (21:25)
[2019-08-18] MEDS: LIDOCAINE PATCH REMOVAL MC SCH (21:25)
[2019-08-18] MEDS: MONTELUKAST NA 10 MG TABLET PO SCH (21:26)
[2019-08-18] MEDS: ARTIFICIAL TEARS (POLYVINYL ALCOHOL) OPTH DROPS OU PRN (23:34)
[2019-08-19] MEDS: LIDOCAINE 5% TOPICAL PATCH TP SCH (10:03)
[2019-08-19] MEDS: PRENATAL VITAMINS W/ FOLIC ACID TABLET (FP) PO SCH (10:03)
[2019-08-19] MEDS: ESCITALOPRAM OXALATE 20 MG TABLET PO SCH (10:03)
[2019-08-19] MEDS: BUDESONIDE/FORMETEROL FUMARATE 160/4.5 mcg INHALER IH SCH ×2 (10:04→21:25)
[2019-08-19] MEDS: NICOTINE POLACRILEX 4 MG GUM BUC PRN (17:49)
[2019-08-19] MEDS: MONTELUKAST NA 10 MG TABLET PO SCH (21:22)
[2019-08-19] MEDS: QUEtiapine FUMARATE 200 MG TABLET PO SCH (21:22)
[2019-08-19] MEDS: LIDOCAINE PATCH REMOVAL MC SCH (21:22)
[2019-08-19] MEDS: THIAMINE HCL 100 MG TABLET (FP) PO SCH (21:22)
[2019-08-19] MEDS: NAPROXEN 250 MG TABLET PO PRN (21:23)
[2019-08-20] MEDS: LIDOCAINE 5% TOPICAL PATCH TP SCH (10:36)
[2019-08-20] MEDS: PRENATAL VITAMINS W/ FOLIC ACID TABLET (FP) PO SCH (10:36)
[2019-08-20] MEDS: ESCITALOPRAM OXALATE 20 MG TABLET PO SCH (10:36)
[2019-08-20] MEDS: BUDESONIDE/FORMETEROL FUMARATE 160/4.5 mcg INHALER IH SCH ×2 (10:37→21:32)
[2019-08-20] MEDS: ALBUTEROL SO4 HFA INHALER IH PRN (10:37)
--- NOTE | 2019-08-20 13:35 | PN ---
[facility] Progress Note Note: Psychiatric nurse practitioner note: Patient with a follow up consultation order. As per patient he did not request to see a psychiatric provider. He reports doing well and is taking his medications as scheduled. Nursing staff informed.
[2019-08-20] MEDS: IBUPROFEN 400 MG TABLET (FP) PO PRN ×2 (15:47→21:31)
[2019-08-20] MEDS: MONTELUKAST NA 10 MG TABLET PO SCH (21:30)
[2019-08-20] MEDS: METHOCARBAMOL 500 MG TABLET PO PRN (21:30)
[2019-08-20] MEDS: QUEtiapine FUMARATE 200 MG TABLET PO SCH (21:30)
[2019-08-20] MEDS: LIDOCAINE PATCH REMOVAL MC SCH (21:30)
[2019-08-20] MEDS: THIAMINE HCL 100 MG TABLET (FP) PO SCH (21:31)
[2019-08-21] MEDS: PRENATAL VITAMINS W/ FOLIC ACID TABLET (FP) PO SCH (09:39)
[2019-08-21] MEDS: BUDESONIDE/FORMETEROL FUMARATE 160/4.5 mcg INHALER IH SCH ×2 (09:39→21:36)
[2019-08-21] MEDS: LIDOCAINE 5% TOPICAL PATCH TP SCH (09:39)
[2019-08-21] MEDS: ESCITALOPRAM OXALATE 20 MG TABLET PO SCH (09:39)
[2019-08-21] MEDS: IBUPROFEN 400 MG TABLET (FP) PO PRN (09:40)
[2019-08-21] MEDS: METHOCARBAMOL 500 MG TABLET PO PRN ×2 (09:40→21:36)
[2019-08-21] MEDS: BISMUTH SUBSALICYLATE 524 MG/30 ML UD PO PRN (10:58)
[2019-08-21] MEDS: ALBUTEROL SO4 HFA INHALER IH PRN (21:37)
[2019-08-21] MEDS: THIAMINE HCL 100 MG TABLET (FP) PO SCH (21:37)
[2019-08-21] MEDS: MONTELUKAST NA 10 MG TABLET PO SCH (21:38)
[2019-08-21] MEDS: QUEtiapine FUMARATE 200 MG TABLET PO SCH (21:39)
[2019-08-21] MEDS: NICOTINE POLACRILEX 4 MG GUM BUC PRN (21:39)
[2019-08-21] MEDS: LIDOCAINE PATCH REMOVAL MC SCH (23:55)
[2019-08-22 06:48] VITALS: BP 119/80; PULSE 86; TEMP 98.3
[2019-08-22] MEDS: BUDESONIDE/FORMETEROL FUMARATE 160/4.5 mcg INHALER IH SCH (10:06)
[2019-08-22] MEDS: LIDOCAINE 5% TOPICAL PATCH TP SCH (10:06)
[2019-08-22] MEDS: ESCITALOPRAM OXALATE 20 MG TABLET PO SCH (10:06)
[2019-08-22] MEDS: PRENATAL VITAMINS W/ FOLIC ACID TABLET (FP) PO SCH (10:06)
[2019-08-22] MEDS: METHOCARBAMOL 500 MG TABLET PO PRN (10:08)
--- NOTE | 2019-08-22 14:10 | PN ---
[facility] Progress Note Note: Patient is discharged today. Scripts for 30 days supply of medications(lexapro 20 mg/day, Seroquel 200 mg/hs) are electronically transmitted to [facility] [place] [address] [place] [address]
--- NOTE | 2019-08-22 15:02 | DS ---
[facility] Rehab Discharge Summary - [facility] Rehab Discharge Summary Admission Date: 08/10/19 Discharge Date: 08/22/19 - History Pertinent Past History: COPD, chronic low back pain, bipolar disorder - Discharge Physical Exam Vital Signs: Vital Signs Temperature 98.3 F 08/22/19 06:48 Pulse Rate 86 08/22/19 06:48 Respiratory Rate 18 08/22/19 06:48 Blood Pressure 119/80 08/22/19 06:48 O2 Sat by Pulse Oximetry (%) - Treatment Discharge Condition: Rehabilitated safely Hospital Course: Patient not examined by typewriter repairer, stable as per records. - Medication Discharge Medications: Ambulatory Orders Ipratropium [place] [Atrovent Hfa] 1 inh IH BID #1 inh 11/20/16 Gabapentin [Neurontin] 200 mg PO BID 06/17/19 Naproxen [Naprosyn -] 250 mg PO BID 06/17/19 Ranitidine HCl 150 mg PO DAILY 06/17/19 Albuterol Sulfate Inhaler - [Ventolin HFA Inhaler -] 2 inh IH Q4H PRN #1 inh 06/22/19 Budesonide/Formeterol Fumarate [SYMBICORT 160/4.5mcg -] 1 inh PO BID #1 inhaler 06/22/19 Lidocaine 5% Patch [Lidoderm -] 1 patch TP DAILY #60 patch 06/22/19 Montelukast Na [Singulair -] 10 mg PO HS #30 tablet 06/22/19 Escitalopram Oxalate [Lexapro -] 20 mg PO DAILY #30 tablet 08/22/19 Quetiapine Fumarate [Seroquel -] 200 mg PO HS #30 tablet 08/22/19 - Medication-Assisted Treatment (MAT) Medication-Assisted Treatment (MAT): No - Discharge Instructions Diet, activity, other medical instructions: Diet: Regular Activity: No restrictions Other medical instructions: - Diagnosis (1) Alcohol use disorder Current Visit: Yes Status: Acute (2) Bipolar disorder Current Visit: Yes Status: Chronic Qualifiers: Active/Remission status: remission status unspecified Qualified Code(s): F31.9 - Bipolar disorder, unspecified (3) Opioid dependence Current Visit: Yes Status: Chronic (4) Chronic low back pain Current Visit: No Status: Acute (5) COPD with chronic bronchitis Current Visit: No Status: Chronic (6) Nicotine dependence Current Visit: No Status: Chronic Qualifiers: Nicotine product type: cigarettes Substance use status: uncomplicated Qualified Code(s): F17.210 - Nicotine dependence, cigarettes, uncomplicated - Follow-up Referral Minutes to complete discharge: 20 - AMA Did Patient Leave Against Medical Advice: No Additional Comments: Patient requested to leave early, he has been admitted to the [facility]
== END 2019-08-22 15:00 | disposition home or self-care (01) | DRG 772 ==
LOC: YASAS 17:58 → Y5N 17:59
PROVIDERS: ADMIT Allergy & Immunology; ATTEND Allergy & Immunology
PROC: HZ42ZZZ Group Counseling for Substance Abuse Treatment, Cognitive-Behavioral (ICD-10-PCS; principal; 2019-08-10)
DX: F10.20 Alcohol dependence, uncomplicated (principal); F11.20 Opioid dependence, uncomplicated; F17.210 Nicotine dependence, cigarettes, uncomplicated; F31.9 Bipolar disorder, unspecified; F19.282 Other psychoactive substance dependence with psychoactive substance-induced sleep disorder; F19.24 Other psychoactive substance dependence with psychoactive substance-induced mood disorder; F43.10 Post-traumatic stress disorder, unspecified; J44.9 Chronic obstructive pulmonary disease, unspecified; M54.5 Low back pain; G89.29 Other chronic pain; E78.00 Pure hypercholesterolemia, unspecified; Z56.0 Unemployment, unspecified; Z59.0 Homelessness; Z88.0 Allergy status to penicillin; Z91.013 Allergy to seafood

== ENCOUNTER 2021-11-17 08:51 | Inpatient (IN) | payer OTHER ==
[2021-11-17] MEDS ORDERED: MAGNESIUM HYDROX 2400MG/30ML ORAL SUSPENSION 30 ML CUP PO PRN (09:49)
[2021-11-17] MEDS ORDERED: MAGNESIUM CITRATE 300 ML BOTTLE PO PRN (09:49)
[2021-11-17] MEDS ORDERED: LOPERAMIDE HCL 2 MG CAPSULE PO PRN (09:49)
[2021-11-17] MEDS ORDERED: ACETAMINOPHEN 325 MG TABLET (FP) PO PRN ×2 (09:49)
[2021-11-17] MEDS ORDERED: MAG HYDROX/AL HYDROX/SIMETH 30 ML UNIT-DOSE CUP PO PRN (09:49)
[2021-11-17] MEDS ORDERED: ONDANSETRON *ODT* 4 MG TABLET SL PRN (09:49)
[2021-11-17] MEDS ORDERED: methaDONE HCL 10 MG TABLET (FOR DETOX USE ONLY) PO ONE (09:49)
[2021-11-17] MEDS ORDERED: NICOTINE 10 MG CARTRIDGE (INHALER) IH PRN (09:49)
[2021-11-17] MEDS ORDERED: DICYCLOMINE HCL 10 MG CAPSULE PO PRN (09:49)
[2021-11-17] MEDS ORDERED: clonazePAM 0.5 MG ODT TABLETS SL PRN (09:49)
[2021-11-17] MEDS ORDERED: BENZOCAINE/MENTHOL (CHLORASEPTIC ) LOZENGE MM PRN (09:49)
[2021-11-17] MEDS ORDERED: methaDONE HCL 10 MG TABLET (FOR DETOX USE ONLY) ONE (13:42)
[2021-11-17] MEDS ORDERED: ASPIRIN 81 MG CHEWABLE TABLETS ONE (13:45)
[2021-11-17] MEDS: ASPIRIN COATED 81 MG TABLET.EC PO SCH (13:46)
[2021-11-17] MEDS: hydrOXYzine PAMOATE 25 MG CAPSULE (FP) PO SCH ×4 (14:12→22:22)
[2021-11-17] MEDS: cloNIDine HCL 0.1 MG TABLET PO PRN ×2 (14:23→17:54)
[2021-11-17] MEDS: METHOCARBAMOL 500 MG TABLET PO PRN (14:23)
[2021-11-17] MEDS: PRENATAL VITAMINS W/ FOLIC ACID TABLET (FP) PO SCH (14:29)
[2021-11-17] MEDS: BUDESONIDE/FORMETEROL FUMARATE 160/4.5 mcg INHALER IH SCH ×2 (15:34→22:22)
[2021-11-17] MEDS: PANTOPRAZOLE 40 MG TABLET PO SCH (15:36)
[2021-11-17] MEDS: NICOTINE POLACRILEX 4 MG GUM BUC PRN (17:55)
[2021-11-17] MEDS: ATORVASTATIN CA 10 MG TABLET (FP) PO SCH (22:22)
[2021-11-17] MEDS: MONTELUKAST NA 10 MG TABLET PO SCH (22:22)
[2021-11-17] MEDS: THIAMINE HCL 100 MG TABLET (FP) PO SCH (22:22)
[2021-11-17] MEDS: MELATONIN 5 MG TABLETS PO SCH (22:24)
[2021-11-18] MEDS: ARTIFICIAL TEARS (POLYVINYL ALCOHOL) OPTH DROPS OU PRN ×3 (01:47→15:22)
[2021-11-18] MEDS: hydrOXYzine PAMOATE 25 MG CAPSULE (FP) PO SCH ×5 (05:47→22:15)
[2021-11-18] MEDS: BISMUTH SUBSALICYLATE 524 MG/30 ML PO PRN (08:00)
[2021-11-18] MEDS ORDERED: methaDONE HCL 10 MG TABLET (FOR DETOX USE ONLY) ONE (09:00)
[2021-11-18] MEDS: ASPIRIN COATED 81 MG TABLET.EC PO SCH (10:05)
[2021-11-18] MEDS: PRENATAL VITAMINS W/ FOLIC ACID TABLET (FP) PO SCH (10:05)
[2021-11-18] MEDS: cloNIDine HCL 0.1 MG TABLET PO PRN (10:07)
[2021-11-18] MEDS: PANTOPRAZOLE 40 MG TABLET PO SCH (10:07)
[2021-11-18] MEDS: BUDESONIDE/FORMETEROL FUMARATE 160/4.5 mcg INHALER IH SCH ×2 (10:08→22:15)
[2021-11-18] MEDS: ALBUTEROL SO4 HFA INHALER IH PRN (10:09)
[2021-11-18] MEDS ORDERED: ACETAMINOPHEN 325 MG TABLET (FP) PO ONE (10:15)
[2021-11-18] MEDS ORDERED: LOPERAMIDE HCL 2 MG CAPSULE PO ONE (10:15)
[2021-11-18] MEDS: NICOTINE POLACRILEX 4 MG GUM BUC PRN (10:58)
[2021-11-18] MEDS: LISINOPRIL 5 MG TABLET PO SCH (10:58)
[2021-11-18] MEDS ORDERED: ESCITALOPRAM OXALATE 20 MG TABLET PO ONE (11:30)
[2021-11-18] MEDS ORDERED: LOPERAMIDE HCL 2 MG CAPSULE PO PRN (12:00)
[2021-11-18] MEDS ORDERED: QUEtiapine FUMARATE 200 MG TABLET PO SCH (22:00)
[2021-11-18] MEDS: THIAMINE HCL 100 MG TABLET (FP) PO SCH (22:15)
[2021-11-18] MEDS: QUEtiapine FUMARATE 100 MG TABLET (FP) PO SCH (22:15)
[2021-11-18] MEDS: ATORVASTATIN CA 10 MG TABLET (FP) PO SCH (22:15)
[2021-11-18] MEDS: MONTELUKAST NA 10 MG TABLET PO SCH (22:15)
[2021-11-18] MEDS: MELATONIN 5 MG TABLETS PO SCH (22:16)
[2021-11-19] MEDS: hydrOXYzine PAMOATE 25 MG CAPSULE (FP) PO SCH ×3 (05:05→15:18)
[2021-11-19] MEDS: ARTIFICIAL TEARS (POLYVINYL ALCOHOL) OPTH DROPS OU PRN ×2 (06:54→15:20)
[2021-11-19] MEDS: BISMUTH SUBSALICYLATE 524 MG/30 ML PO PRN ×2 (06:54→19:01)
[2021-11-19] MEDS ORDERED: methaDONE HCL 10 MG TABLET (FOR DETOX USE ONLY) PO ONE (10:00)
[2021-11-19] MEDS: PANTOPRAZOLE 40 MG TABLET PO SCH (10:13)
[2021-11-19] MEDS: METHOCARBAMOL 500 MG TABLET PO PRN (10:13)
[2021-11-19] MEDS: ASPIRIN COATED 81 MG TABLET.EC PO SCH (10:13)
[2021-11-19] MEDS: BUDESONIDE/FORMETEROL FUMARATE 160/4.5 mcg INHALER IH SCH ×2 (10:13→22:25)
[2021-11-19] MEDS: PRENATAL VITAMINS W/ FOLIC ACID TABLET (FP) PO SCH (10:13)
[2021-11-19] MEDS: LISINOPRIL 5 MG TABLET PO SCH (10:13)
[2021-11-19] MEDS: MONTELUKAST NA 10 MG TABLET PO SCH (22:25)
[2021-11-19] MEDS: MELATONIN 5 MG TABLETS PO SCH (22:25)
[2021-11-19] MEDS: QUEtiapine FUMARATE 100 MG TABLET (FP) PO SCH (22:25)
[2021-11-19] MEDS: ATORVASTATIN CA 10 MG TABLET (FP) PO SCH (22:25)
[2021-11-19] MEDS: cloNIDine HCL 0.1 MG TABLET PO PRN (22:25)
[2021-11-19] MEDS: THIAMINE HCL 100 MG TABLET (FP) PO SCH (22:25)
[2021-11-19] MEDS: NICOTINE POLACRILEX 4 MG GUM BUC PRN (22:27)
[2021-11-20] MEDS ORDERED: methaDONE HCL 10 MG TABLET (FOR DETOX USE ONLY) ONE (09:35)
[2021-11-20] MEDS: BUDESONIDE/FORMETEROL FUMARATE 160/4.5 mcg INHALER IH SCH ×2 (10:15→22:37)
[2021-11-20] MEDS: PANTOPRAZOLE 40 MG TABLET PO SCH (10:16)
[2021-11-20] MEDS: METHOCARBAMOL 500 MG TABLET PO PRN (10:16)
[2021-11-20] MEDS: ASPIRIN COATED 81 MG TABLET.EC PO SCH (10:16)
[2021-11-20] MEDS: LISINOPRIL 5 MG TABLET PO SCH (10:17)
[2021-11-20] MEDS: PRENATAL VITAMINS W/ FOLIC ACID TABLET (FP) PO SCH (10:17)
[2021-11-20] MEDS: ALBUTEROL SO4 HFA INHALER IH PRN (10:19)
[2021-11-20] MEDS: BISMUTH SUBSALICYLATE 524 MG/30 ML PO PRN ×2 (11:01→17:36)
[2021-11-20] MEDS: ARTIFICIAL TEARS (POLYVINYL ALCOHOL) OPTH DROPS OU PRN (11:01)
[2021-11-20 14:18] LABS: HEMATOCRIT 40.3 % (35.4-49); MCH 29.1 pg (25.7-33.7); MCHC 32.2 g/dl (32.0-35.9); MEAN CELL VOLUME 90.4 fl (80-96); MEAN PLT VOLUME 9.5 fl (7.5-11.1); PLATELET COUNT 233 10^3/uL (134-434); RBC 4.46 M/mm3 (4.00-5.60); RDW 14.9 % (11.9-15.9); WHITE BLOOD COUNT 8.2 K/mm3 (4.0-10.0)
[2021-11-20 14:24] LABS: CALCIUM 9.9 mg/dL (8.5-10.1)
[2021-11-20 14:25] LABS: ALBUMIN 3.6 g/dl (3.4-5.0); BLOOD UREA NITROGEN 13.5 mg/dL (7-18)
[2021-11-20 14:28] LABS: CREATININE 0.9 mg/dL (0.55-1.3)
[2021-11-20 14:29] LABS: BILIRUBIN,TOTAL 0.4 mg/dL (0.2-1); TOT PROT 6.4 g/dl (6.4-8.2)
[2021-11-20] MEDS: NICOTINE POLACRILEX 4 MG GUM BUC PRN (17:44)
[2021-11-20] MEDS: MONTELUKAST NA 10 MG TABLET PO SCH (22:37)
[2021-11-20] MEDS: QUEtiapine FUMARATE 100 MG TABLET (FP) PO SCH (22:37)
[2021-11-20] MEDS: MELATONIN 5 MG TABLETS PO SCH (22:37)
[2021-11-20] MEDS: ATORVASTATIN CA 10 MG TABLET (FP) PO SCH (22:37)
[2021-11-20] MEDS: THIAMINE HCL 100 MG TABLET (FP) PO SCH (22:37)
[2021-11-21] MEDS: ARTIFICIAL TEARS (POLYVINYL ALCOHOL) OPTH DROPS OU PRN ×2 (04:51→19:10)
[2021-11-21] MEDS: BISMUTH SUBSALICYLATE 524 MG/30 ML PO PRN ×2 (04:52→22:49)
[2021-11-21] MEDS ORDERED: methaDONE HCL 10 MG TABLET (FOR DETOX USE ONLY) PO ONE (10:00)
[2021-11-21] MEDS: BUDESONIDE/FORMETEROL FUMARATE 160/4.5 mcg INHALER IH SCH ×2 (10:09→22:21)
[2021-11-21] MEDS: PRENATAL VITAMINS W/ FOLIC ACID TABLET (FP) PO SCH (10:10)
[2021-11-21] MEDS: ASPIRIN COATED 81 MG TABLET.EC PO SCH (10:10)
[2021-11-21] MEDS: LISINOPRIL 5 MG TABLET PO SCH (10:10)
[2021-11-21] MEDS: PANTOPRAZOLE 40 MG TABLET PO SCH (10:10)
[2021-11-21] MEDS: NICOTINE POLACRILEX 4 MG GUM BUC PRN (10:12)
[2021-11-21] MEDS: QUEtiapine FUMARATE 100 MG TABLET (FP) PO SCH (22:21)
[2021-11-21] MEDS: MONTELUKAST NA 10 MG TABLET PO SCH (22:21)
[2021-11-21] MEDS: ATORVASTATIN CA 10 MG TABLET (FP) PO SCH (22:21)
[2021-11-21] MEDS: MELATONIN 5 MG TABLETS PO SCH (22:21)
[2021-11-21] MEDS: THIAMINE HCL 100 MG TABLET (FP) PO SCH (22:21)
[2021-11-22 09:46] VITALS: BP 134/85; PULSE 64; TEMP 96.9
[2021-11-22] MEDS: PRENATAL VITAMINS W/ FOLIC ACID TABLET (FP) PO SCH (10:26)
[2021-11-22] MEDS: BUDESONIDE/FORMETEROL FUMARATE 160/4.5 mcg INHALER IH SCH (10:26)
[2021-11-22] MEDS: ASPIRIN COATED 81 MG TABLET.EC PO SCH (10:27)
[2021-11-22] MEDS: PANTOPRAZOLE 40 MG TABLET PO SCH (10:27)
[2021-11-22] MEDS: LISINOPRIL 5 MG TABLET PO SCH (10:27)
[2021-11-22] MEDS: NICOTINE POLACRILEX 4 MG GUM BUC PRN (10:28)
[2021-11-22] MEDS: METHOCARBAMOL 500 MG TABLET PO PRN (10:29)
[2021-11-22] MEDS: ARTIFICIAL TEARS (POLYVINYL ALCOHOL) OPTH DROPS OU PRN (10:29)
== END 2021-11-22 11:30 | disposition other institution (70) | DRG 773 ==
LOC: YASAS 08:51 → Y6N 13:34
PROVIDERS: ADMIT Allergy & Immunology; ATTEND Surgery
PROC: HZ2ZZZZ Detoxification Services for Substance Abuse Treatment (ICD-10-PCS; principal; 2021-11-17)
DX: F11.23 Opioid dependence with withdrawal (principal); F17.210 Nicotine dependence, cigarettes, uncomplicated; F19.282 Other psychoactive substance dependence with psychoactive substance-induced sleep disorder; F31.9 Bipolar disorder, unspecified; F43.10 Post-traumatic stress disorder, unspecified; J44.9 Chronic obstructive pulmonary disease, unspecified; M17.0 Bilateral primary osteoarthritis of knee; M19.041 Primary osteoarthritis, right hand; M19.042 Primary osteoarthritis, left hand; M54.50 Low back pain, unspecified; G89.29 Other chronic pain; H91.92 Unspecified hearing loss, left ear; H54.7 Unspecified visual loss; Z87.820 Personal history of traumatic brain injury; Z88.0 Allergy status to penicillin; Z88.8 Allergy status to other drugs, medicaments and biological substances; Z91.013 Allergy to seafood
CPT/HCPCS: 36415; 80053; 83036; 85027; 86780; 87811; 93005; 93010; C9803-CS; J0735; U0003; U0005

== ENCOUNTER 2021-11-22 11:41 | Inpatient (IN) | payer OTHER ==
[2021-11-22] MEDS ORDERED: BENZOCAINE/MENTHOL (CHLORASEPTIC ) LOZENGE MM PRN (12:32)
[2021-11-22] MEDS ORDERED: ACETAMINOPHEN 325 MG TABLET (FP) PO PRN (12:32)
[2021-11-22] MEDS ORDERED: P-EPHED 60MG/TRIPROLIDI 2.5MG TABLET PO PRN (12:32)
[2021-11-22] MEDS ORDERED: MAGNESIUM HYDROX 2400MG/30ML ORAL SUSPENSION 30 ML CUP PO PRN (12:32)
[2021-11-22] MEDS ORDERED: LOPERAMIDE HCL 2 MG CAPSULE PO PRN (12:32)
[2021-11-22] MEDS ORDERED: guaiFENesin 200 MG/10 ML 10 ML UNIT-DOSE CUPS PO PRN (12:32)
[2021-11-22] MEDS ORDERED: MAGNESIUM CITRATE 300 ML BOTTLE PO PRN (12:32)
[2021-11-22] MEDS ORDERED: NICOTINE 10 MG CARTRIDGE (INHALER) IH PRN (12:32)
[2021-11-22] MEDS ORDERED: hydrOXYzine PAMOATE 25 MG CAPSULE (FP) PO PRN (12:35)
[2021-11-22] MEDS: ARTIFICIAL TEARS (POLYVINYL ALCOHOL) OPTH DROPS OU PRN (16:52)
[2021-11-22] MEDS: MAG HYDROX/AL HYDROX/SIMETH 30 ML UNIT-DOSE CUP PO PRN (16:53)
[2021-11-22] MEDS: MELATONIN 5 MG TABLETS PO SCH (21:17)
[2021-11-22] MEDS: THIAMINE HCL 100 MG TABLET (FP) PO SCH (21:17)
[2021-11-22] MEDS: MONTELUKAST NA 10 MG TABLET PO SCH (21:19)
[2021-11-22] MEDS: QUEtiapine FUMARATE 100 MG TABLET (FP) PO SCH (21:19)
[2021-11-22] MEDS: BUDESONIDE/FORMETEROL FUMARATE 160/4.5 mcg INHALER IH SCH (21:19)
[2021-11-22] MEDS: ATORVASTATIN CA 10 MG TABLET (FP) PO SCH (21:19)
[2021-11-23] MEDS: MAG HYDROX/AL HYDROX/SIMETH 30 ML UNIT-DOSE CUP PO PRN (06:10)
[2021-11-23] MEDS: ARTIFICIAL TEARS (POLYVINYL ALCOHOL) OPTH DROPS OU PRN ×2 (06:43→12:35)
[2021-11-23] MEDS: BUDESONIDE/FORMETEROL FUMARATE 160/4.5 mcg INHALER IH SCH ×2 (09:21→21:10)
[2021-11-23] MEDS: LISINOPRIL 5 MG TABLET PO SCH (09:22)
[2021-11-23] MEDS: PRENATAL VITAMINS W/ FOLIC ACID TABLET (FP) PO SCH (09:22)
[2021-11-23] MEDS: ASPIRIN 81 MG CHEWABLE TABLETS PO SCH (09:22)
[2021-11-23] MEDS: PANTOPRAZOLE 40 MG TABLET PO SCH (09:22)
[2021-11-23] MEDS: METHOCARBAMOL 500 MG TABLET PO PRN (09:23)
[2021-11-23] MEDS ORDERED: NICOTINE 7 MG/24 HOURS TOPICAL PATCH TD SCH (10:00)
[2021-11-23 13:09] LABS: HIV INTERPRETATION NEGATIVE (NEGATIVE)
[2021-11-23] MEDS: NICOTINE POLACRILEX 2 MG GUM BUC PRN (18:28)
[2021-11-23] MEDS: THIAMINE HCL 100 MG TABLET (FP) PO SCH (21:07)
[2021-11-23] MEDS: ATORVASTATIN CA 10 MG TABLET (FP) PO SCH (21:07)
[2021-11-23] MEDS: MONTELUKAST NA 10 MG TABLET PO SCH (21:07)
[2021-11-23] MEDS: MELATONIN 5 MG TABLETS PO SCH (21:07)
[2021-11-23] MEDS: QUEtiapine FUMARATE 100 MG TABLET (FP) PO SCH (21:07)
[2021-11-24] MEDS: IBUPROFEN 400 MG TABLET (FP) PO PRN ×2 (01:21→23:43)
[2021-11-24] MEDS: ASPIRIN 81 MG CHEWABLE TABLETS PO SCH (09:09)
[2021-11-24] MEDS: PANTOPRAZOLE 40 MG TABLET PO SCH (09:10)
[2021-11-24] MEDS: BUDESONIDE/FORMETEROL FUMARATE 160/4.5 mcg INHALER IH SCH ×2 (09:10→21:13)
[2021-11-24] MEDS: LISINOPRIL 5 MG TABLET PO SCH (09:10)
[2021-11-24] MEDS: PRENATAL VITAMINS W/ FOLIC ACID TABLET (FP) PO SCH (09:10)
[2021-11-24] MEDS: METHOCARBAMOL 500 MG TABLET PO PRN ×2 (09:11→21:13)
[2021-11-24] MEDS: ALBUTEROL SO4 HFA INHALER IH PRN (09:11)
[2021-11-24] MEDS: ARTIFICIAL TEARS (POLYVINYL ALCOHOL) OPTH DROPS OU PRN (11:38)
[2021-11-24] MEDS: MAG HYDROX/AL HYDROX/SIMETH 30 ML UNIT-DOSE CUP PO PRN (11:38)
[2021-11-24] MEDS: THIAMINE HCL 100 MG TABLET (FP) PO SCH (21:13)
[2021-11-24] MEDS: QUEtiapine FUMARATE 100 MG TABLET (FP) PO SCH (21:13)
[2021-11-24] MEDS: MELATONIN 5 MG TABLETS PO SCH (21:13)
[2021-11-24] MEDS: ATORVASTATIN CA 10 MG TABLET (FP) PO SCH (21:13)
[2021-11-24] MEDS: MONTELUKAST NA 10 MG TABLET PO SCH (21:14)
[2021-11-25] MEDS: MAG HYDROX/AL HYDROX/SIMETH 30 ML UNIT-DOSE CUP PO PRN (06:32)
[2021-11-25] MEDS: ARTIFICIAL TEARS (POLYVINYL ALCOHOL) OPTH DROPS OU PRN ×2 (06:32→14:08)
[2021-11-25] MEDS: NICOTINE POLACRILEX 2 MG GUM BUC PRN (09:00)
[2021-11-25] MEDS: PRENATAL VITAMINS W/ FOLIC ACID TABLET (FP) PO SCH (09:57)
[2021-11-25] MEDS: ASPIRIN 81 MG CHEWABLE TABLETS PO SCH (09:57)
[2021-11-25] MEDS: LISINOPRIL 5 MG TABLET PO SCH (09:57)
[2021-11-25] MEDS: PANTOPRAZOLE 40 MG TABLET PO SCH (09:57)
[2021-11-25] MEDS: METHOCARBAMOL 500 MG TABLET PO PRN (09:59)
[2021-11-25] MEDS: BUDESONIDE/FORMETEROL FUMARATE 160/4.5 mcg INHALER IH SCH ×2 (09:59→21:02)
[2021-11-25] MEDS: IBUPROFEN 400 MG TABLET (FP) PO PRN (15:02)
[2021-11-25] MEDS: MELATONIN 5 MG TABLETS PO SCH (21:02)
[2021-11-25] MEDS: THIAMINE HCL 100 MG TABLET (FP) PO SCH (21:02)
[2021-11-25] MEDS: ATORVASTATIN CA 10 MG TABLET (FP) PO SCH (21:04)
[2021-11-25] MEDS: MONTELUKAST NA 10 MG TABLET PO SCH (21:04)
[2021-11-25] MEDS: QUEtiapine FUMARATE 100 MG TABLET (FP) PO SCH (21:04)
[2021-11-26] MEDS: ARTIFICIAL TEARS (POLYVINYL ALCOHOL) OPTH DROPS OU PRN ×2 (06:42→14:09)
[2021-11-26] MEDS: MAG HYDROX/AL HYDROX/SIMETH 30 ML UNIT-DOSE CUP PO PRN (06:42)
[2021-11-26] MEDS: ASPIRIN 81 MG CHEWABLE TABLETS PO SCH (09:43)
[2021-11-26] MEDS: PANTOPRAZOLE 40 MG TABLET PO SCH (09:43)
[2021-11-26] MEDS: PRENATAL VITAMINS W/ FOLIC ACID TABLET (FP) PO SCH (09:44)
[2021-11-26] MEDS: BUDESONIDE/FORMETEROL FUMARATE 160/4.5 mcg INHALER IH SCH ×2 (09:44→21:26)
[2021-11-26] MEDS: METHOCARBAMOL 500 MG TABLET PO PRN ×2 (09:45→19:45)
[2021-11-26] MEDS: LISINOPRIL 5 MG TABLET PO SCH (09:45)
[2021-11-26] MEDS: NICOTINE POLACRILEX 2 MG GUM BUC PRN ×2 (09:47→19:46)
[2021-11-26] MEDS: IBUPROFEN 400 MG TABLET (FP) PO PRN (19:45)
[2021-11-26] MEDS: MONTELUKAST NA 10 MG TABLET PO SCH (21:25)
[2021-11-26] MEDS: MELATONIN 5 MG TABLETS PO SCH (21:25)
[2021-11-26] MEDS: QUEtiapine FUMARATE 100 MG TABLET (FP) PO SCH (21:25)
[2021-11-26] MEDS: THIAMINE HCL 100 MG TABLET (FP) PO SCH (21:25)
[2021-11-26] MEDS: ATORVASTATIN CA 10 MG TABLET (FP) PO SCH (21:25)
[2021-11-26] MEDS: ALBUTEROL SO4 HFA INHALER IH PRN (21:27)
[2021-11-27] MEDS: MAG HYDROX/AL HYDROX/SIMETH 30 ML UNIT-DOSE CUP PO PRN (03:05)
[2021-11-27] MEDS: ARTIFICIAL TEARS (POLYVINYL ALCOHOL) OPTH DROPS OU PRN (06:05)
[2021-11-27] MEDS: ASPIRIN 81 MG CHEWABLE TABLETS PO SCH (09:08)
[2021-11-27] MEDS: LISINOPRIL 5 MG TABLET PO SCH (09:08)
[2021-11-27] MEDS: PRENATAL VITAMINS W/ FOLIC ACID TABLET (FP) PO SCH (09:08)
[2021-11-27] MEDS: BUDESONIDE/FORMETEROL FUMARATE 160/4.5 mcg INHALER IH SCH ×2 (09:09→21:16)
[2021-11-27] MEDS: PANTOPRAZOLE 40 MG TABLET PO SCH (09:09)
[2021-11-27] MEDS: METHOCARBAMOL 500 MG TABLET PO PRN ×2 (09:10→21:17)
[2021-11-27] MEDS: ALBUTEROL SO4 HFA INHALER IH PRN (09:10)
[2021-11-27] MEDS: IBUPROFEN 400 MG TABLET (FP) PO PRN ×2 (12:10→21:18)
[2021-11-27] MEDS: THIAMINE HCL 100 MG TABLET (FP) PO SCH (21:16)
[2021-11-27] MEDS: MELATONIN 5 MG TABLETS PO SCH (21:16)
[2021-11-27] MEDS: ATORVASTATIN CA 10 MG TABLET (FP) PO SCH (21:17)
[2021-11-27] MEDS: QUEtiapine FUMARATE 100 MG TABLET (FP) PO SCH (21:17)
[2021-11-27] MEDS: MONTELUKAST NA 10 MG TABLET PO SCH (21:17)
[2021-11-28] MEDS: ARTIFICIAL TEARS (POLYVINYL ALCOHOL) OPTH DROPS OU PRN ×3 (06:08→21:15)
[2021-11-28] MEDS: MAG HYDROX/AL HYDROX/SIMETH 30 ML UNIT-DOSE CUP PO PRN (06:08)
[2021-11-28] MEDS: ASPIRIN 81 MG CHEWABLE TABLETS PO SCH (09:22)
[2021-11-28] MEDS: PANTOPRAZOLE 40 MG TABLET PO SCH (09:22)
[2021-11-28] MEDS: PRENATAL VITAMINS W/ FOLIC ACID TABLET (FP) PO SCH (09:23)
[2021-11-28] MEDS: BUDESONIDE/FORMETEROL FUMARATE 160/4.5 mcg INHALER IH SCH ×2 (09:23→21:14)
[2021-11-28] MEDS: LISINOPRIL 5 MG TABLET PO SCH (09:23)
[2021-11-28] MEDS: METHOCARBAMOL 500 MG TABLET PO PRN (09:24)
[2021-11-28] MEDS: ATORVASTATIN CA 10 MG TABLET (FP) PO SCH (21:13)
[2021-11-28] MEDS: MELATONIN 5 MG TABLETS PO SCH (21:13)
[2021-11-28] MEDS: QUEtiapine FUMARATE 100 MG TABLET (FP) PO SCH (21:13)
[2021-11-28] MEDS: THIAMINE HCL 100 MG TABLET (FP) PO SCH (21:13)
[2021-11-28] MEDS: MONTELUKAST NA 10 MG TABLET PO SCH (21:14)
[2021-11-28] MEDS: IBUPROFEN 400 MG TABLET (FP) PO PRN (23:42)
[2021-11-29] MEDS: MAG HYDROX/AL HYDROX/SIMETH 30 ML UNIT-DOSE CUP PO PRN (06:26)
[2021-11-29] MEDS: ARTIFICIAL TEARS (POLYVINYL ALCOHOL) OPTH DROPS OU PRN ×2 (06:26→15:34)
[2021-11-29] MEDS: ASPIRIN 81 MG CHEWABLE TABLETS PO SCH (09:32)
[2021-11-29] MEDS: LISINOPRIL 5 MG TABLET PO SCH (09:32)
[2021-11-29] MEDS: PRENATAL VITAMINS W/ FOLIC ACID TABLET (FP) PO SCH (09:32)
[2021-11-29] MEDS: BUDESONIDE/FORMETEROL FUMARATE 160/4.5 mcg INHALER IH SCH ×2 (09:32→21:12)
[2021-11-29] MEDS: PANTOPRAZOLE 40 MG TABLET PO SCH (09:32)
[2021-11-29] MEDS: METHOCARBAMOL 500 MG TABLET PO PRN (09:33)
[2021-11-29] MEDS: NICOTINE POLACRILEX 2 MG GUM BUC PRN (09:35)
[2021-11-29] MEDS: THIAMINE HCL 100 MG TABLET (FP) PO SCH (21:12)
[2021-11-29] MEDS: MELATONIN 5 MG TABLETS PO SCH (21:12)
[2021-11-29] MEDS: MONTELUKAST NA 10 MG TABLET PO SCH (21:12)
[2021-11-29] MEDS: QUEtiapine FUMARATE 100 MG TABLET (FP) PO SCH (21:12)
[2021-11-29] MEDS: ATORVASTATIN CA 10 MG TABLET (FP) PO SCH (21:13)
[2021-11-30] MEDS: ARTIFICIAL TEARS (POLYVINYL ALCOHOL) OPTH DROPS OU PRN ×2 (06:42→16:49)
[2021-11-30] MEDS: MAG HYDROX/AL HYDROX/SIMETH 30 ML UNIT-DOSE CUP PO PRN (06:42)
[2021-11-30] MEDS: BUDESONIDE/FORMETEROL FUMARATE 160/4.5 mcg INHALER IH SCH ×2 (10:21→21:40)
[2021-11-30] MEDS: PRENATAL VITAMINS W/ FOLIC ACID TABLET (FP) PO SCH (10:21)
[2021-11-30] MEDS: LISINOPRIL 5 MG TABLET PO SCH (10:21)
[2021-11-30] MEDS: PANTOPRAZOLE 40 MG TABLET PO SCH (10:21)
[2021-11-30] MEDS: ASPIRIN 81 MG CHEWABLE TABLETS PO SCH (10:21)
[2021-11-30] MEDS: METHOCARBAMOL 500 MG TABLET PO PRN (10:48)
[2021-11-30] MEDS: MONTELUKAST NA 10 MG TABLET PO SCH (21:39)
[2021-11-30] MEDS: ATORVASTATIN CA 10 MG TABLET (FP) PO SCH (21:39)
[2021-11-30] MEDS: QUEtiapine FUMARATE 100 MG TABLET (FP) PO SCH (21:39)
[2021-11-30] MEDS: MELATONIN 5 MG TABLETS PO SCH (21:39)
[2021-11-30] MEDS: THIAMINE HCL 100 MG TABLET (FP) PO SCH (21:39)
[2021-12-01] MEDS: MAG HYDROX/AL HYDROX/SIMETH 30 ML UNIT-DOSE CUP PO PRN (06:06)
[2021-12-01] MEDS: ARTIFICIAL TEARS (POLYVINYL ALCOHOL) OPTH DROPS OU PRN ×3 (06:06→21:09)
[2021-12-01] MEDS: LISINOPRIL 5 MG TABLET PO SCH (10:03)
[2021-12-01] MEDS: BUDESONIDE/FORMETEROL FUMARATE 160/4.5 mcg INHALER IH SCH ×2 (10:04→21:09)
[2021-12-01] MEDS: ASPIRIN 81 MG CHEWABLE TABLETS PO SCH (10:04)
[2021-12-01] MEDS: PANTOPRAZOLE 40 MG TABLET PO SCH (10:04)
[2021-12-01] MEDS: PRENATAL VITAMINS W/ FOLIC ACID TABLET (FP) PO SCH (10:04)
[2021-12-01] MEDS: METHOCARBAMOL 500 MG TABLET PO PRN (10:05)
[2021-12-01] MEDS: IBUPROFEN 400 MG TABLET (FP) PO PRN (14:12)
[2021-12-01] MEDS: MONTELUKAST NA 10 MG TABLET PO SCH (21:10)
[2021-12-01] MEDS: MELATONIN 5 MG TABLETS PO SCH (21:10)
[2021-12-01] MEDS: ATORVASTATIN CA 10 MG TABLET (FP) PO SCH (21:10)
[2021-12-01] MEDS: QUEtiapine FUMARATE 100 MG TABLET (FP) PO SCH (21:10)
[2021-12-01] MEDS: THIAMINE HCL 100 MG TABLET (FP) PO SCH (21:10)
[2021-12-02] MEDS: ARTIFICIAL TEARS (POLYVINYL ALCOHOL) OPTH DROPS OU PRN ×3 (06:26→21:19)
[2021-12-02] MEDS: MAG HYDROX/AL HYDROX/SIMETH 30 ML UNIT-DOSE CUP PO PRN (06:26)
[2021-12-02] MEDS: PANTOPRAZOLE 40 MG TABLET PO SCH (09:33)
[2021-12-02] MEDS: LISINOPRIL 5 MG TABLET PO SCH (09:33)
[2021-12-02] MEDS: ASPIRIN 81 MG CHEWABLE TABLETS PO SCH (09:33)
[2021-12-02] MEDS: PRENATAL VITAMINS W/ FOLIC ACID TABLET (FP) PO SCH (09:33)
[2021-12-02] MEDS: BUDESONIDE/FORMETEROL FUMARATE 160/4.5 mcg INHALER IH SCH ×2 (09:33→21:36)
[2021-12-02] MEDS: METHOCARBAMOL 500 MG TABLET PO PRN (09:35)
[2021-12-02] MEDS: MELATONIN 5 MG TABLETS PO SCH (21:17)
[2021-12-02] MEDS: ATORVASTATIN CA 10 MG TABLET (FP) PO SCH (21:17)
[2021-12-02] MEDS: THIAMINE HCL 100 MG TABLET (FP) PO SCH (21:17)
[2021-12-02] MEDS: MONTELUKAST NA 10 MG TABLET PO SCH (21:17)
[2021-12-02] MEDS: QUEtiapine FUMARATE 100 MG TABLET (FP) PO SCH (21:17)
[2021-12-02] MEDS: IBUPROFEN 400 MG TABLET (FP) PO PRN (21:18)
[2021-12-03] MEDS: MAG HYDROX/AL HYDROX/SIMETH 30 ML UNIT-DOSE CUP PO PRN (06:06)
[2021-12-03] MEDS: ARTIFICIAL TEARS (POLYVINYL ALCOHOL) OPTH DROPS OU PRN ×2 (06:06→14:45)
[2021-12-03] MEDS: PANTOPRAZOLE 40 MG TABLET PO SCH (10:06)
[2021-12-03] MEDS: BUDESONIDE/FORMETEROL FUMARATE 160/4.5 mcg INHALER IH SCH ×2 (10:06→21:25)
[2021-12-03] MEDS: PRENATAL VITAMINS W/ FOLIC ACID TABLET (FP) PO SCH (10:06)
[2021-12-03] MEDS: LISINOPRIL 5 MG TABLET PO SCH (10:06)
[2021-12-03] MEDS: ASPIRIN 81 MG CHEWABLE TABLETS PO SCH (10:06)
[2021-12-03] MEDS: METHOCARBAMOL 500 MG TABLET PO PRN (10:07)
[2021-12-03] MEDS: ALBUTEROL SO4 HFA INHALER IH PRN (10:08)
[2021-12-03] MEDS: IBUPROFEN 400 MG TABLET (FP) PO PRN (14:43)
[2021-12-03] MEDS: MELATONIN 5 MG TABLETS PO SCH (21:25)
[2021-12-03] MEDS: THIAMINE HCL 100 MG TABLET (FP) PO SCH (21:25)
[2021-12-03] MEDS: QUEtiapine FUMARATE 100 MG TABLET (FP) PO SCH (21:26)
[2021-12-03] MEDS: MONTELUKAST NA 10 MG TABLET PO SCH (21:26)
[2021-12-03] MEDS: ATORVASTATIN CA 10 MG TABLET (FP) PO SCH (21:26)
[2021-12-04] MEDS: PANTOPRAZOLE 40 MG TABLET PO SCH (06:41)
[2021-12-04] MEDS: ARTIFICIAL TEARS (POLYVINYL ALCOHOL) OPTH DROPS OU PRN ×2 (06:41→14:51)
[2021-12-04] MEDS: ASPIRIN 81 MG CHEWABLE TABLETS PO SCH (10:02)
[2021-12-04] MEDS: LISINOPRIL 5 MG TABLET PO SCH (10:02)
[2021-12-04] MEDS: BUDESONIDE/FORMETEROL FUMARATE 160/4.5 mcg INHALER IH SCH ×2 (10:02→21:12)
[2021-12-04] MEDS: PRENATAL VITAMINS W/ FOLIC ACID TABLET (FP) PO SCH (10:02)
[2021-12-04] MEDS: NICOTINE POLACRILEX 2 MG GUM BUC PRN (10:03)
[2021-12-04] MEDS: METHOCARBAMOL 500 MG TABLET PO PRN (10:03)
[2021-12-04] MEDS: IBUPROFEN 400 MG TABLET (FP) PO PRN ×2 (11:14→21:11)
[2021-12-04] MEDS: ATORVASTATIN CA 10 MG TABLET (FP) PO SCH (21:12)
[2021-12-04] MEDS: MELATONIN 5 MG TABLETS PO SCH (21:12)
[2021-12-04] MEDS: QUEtiapine FUMARATE 100 MG TABLET (FP) PO SCH (21:12)
[2021-12-04] MEDS: THIAMINE HCL 100 MG TABLET (FP) PO SCH (21:12)
[2021-12-04] MEDS: MONTELUKAST NA 10 MG TABLET PO SCH (21:13)
[2021-12-05] MEDS: ARTIFICIAL TEARS (POLYVINYL ALCOHOL) OPTH DROPS OU PRN ×2 (06:40→14:36)
[2021-12-05] MEDS: PANTOPRAZOLE 40 MG TABLET PO SCH (06:40)
[2021-12-05] MEDS: LISINOPRIL 5 MG TABLET PO SCH (09:31)
[2021-12-05] MEDS: ASPIRIN 81 MG CHEWABLE TABLETS PO SCH (09:31)
[2021-12-05] MEDS: METHOCARBAMOL 500 MG TABLET PO PRN (09:31)
[2021-12-05] MEDS: PRENATAL VITAMINS W/ FOLIC ACID TABLET (FP) PO SCH (09:32)
[2021-12-05] MEDS: BUDESONIDE/FORMETEROL FUMARATE 160/4.5 mcg INHALER IH SCH ×2 (09:32→21:07)
[2021-12-05] MEDS: IBUPROFEN 400 MG TABLET (FP) PO PRN (14:37)
[2021-12-05] MEDS: QUEtiapine FUMARATE 100 MG TABLET (FP) PO SCH (21:07)
[2021-12-05] MEDS: THIAMINE HCL 100 MG TABLET (FP) PO SCH (21:07)
[2021-12-05] MEDS: MELATONIN 5 MG TABLETS PO SCH (21:07)
[2021-12-05] MEDS: MONTELUKAST NA 10 MG TABLET PO SCH (21:08)
[2021-12-05] MEDS: ATORVASTATIN CA 10 MG TABLET (FP) PO SCH (21:08)
[2021-12-06] MEDS: ARTIFICIAL TEARS (POLYVINYL ALCOHOL) OPTH DROPS OU PRN ×2 (06:20→14:42)
[2021-12-06] MEDS: PANTOPRAZOLE 40 MG TABLET PO SCH (06:20)
[2021-12-06] MEDS: ASPIRIN 81 MG CHEWABLE TABLETS PO SCH (10:15)
[2021-12-06] MEDS: BUDESONIDE/FORMETEROL FUMARATE 160/4.5 mcg INHALER IH SCH ×2 (10:15→21:25)
[2021-12-06] MEDS: LISINOPRIL 5 MG TABLET PO SCH (10:15)
[2021-12-06] MEDS: PRENATAL VITAMINS W/ FOLIC ACID TABLET (FP) PO SCH (10:15)
[2021-12-06] MEDS: MELATONIN 5 MG TABLETS PO SCH (21:22)
[2021-12-06] MEDS: THIAMINE HCL 100 MG TABLET (FP) PO SCH (21:22)
[2021-12-06] MEDS: ATORVASTATIN CA 10 MG TABLET (FP) PO SCH (21:23)
[2021-12-06] MEDS: MONTELUKAST NA 10 MG TABLET PO SCH (21:23)
[2021-12-06] MEDS: QUEtiapine FUMARATE 100 MG TABLET (FP) PO SCH (21:23)
[2021-12-07] MEDS: ARTIFICIAL TEARS (POLYVINYL ALCOHOL) OPTH DROPS OU PRN ×2 (06:14→16:29)
[2021-12-07] MEDS: MAG HYDROX/AL HYDROX/SIMETH 30 ML UNIT-DOSE CUP PO PRN (06:14)
[2021-12-07] MEDS: PANTOPRAZOLE 40 MG TABLET PO SCH (06:14)
[2021-12-07] MEDS: LISINOPRIL 5 MG TABLET PO SCH (09:55)
[2021-12-07] MEDS: PRENATAL VITAMINS W/ FOLIC ACID TABLET (FP) PO SCH (09:56)
[2021-12-07] MEDS: BUDESONIDE/FORMETEROL FUMARATE 160/4.5 mcg INHALER IH SCH (09:56)
[2021-12-07] MEDS: ASPIRIN 81 MG CHEWABLE TABLETS PO SCH (09:56)
[2021-12-07] MEDS: NICOTINE POLACRILEX 2 MG GUM BUC PRN (09:57)
[2021-12-07] MEDS: MELATONIN 5 MG TABLETS PO SCH (21:30)
[2021-12-07] MEDS: QUEtiapine FUMARATE 100 MG TABLET (FP) PO SCH (21:31)
[2021-12-07] MEDS: ATORVASTATIN CA 10 MG TABLET (FP) PO SCH (21:31)
[2021-12-07] MEDS: THIAMINE HCL 100 MG TABLET (FP) PO SCH (21:31)
[2021-12-08] MEDS: ARTIFICIAL TEARS (POLYVINYL ALCOHOL) OPTH DROPS OU PRN (06:17)
[2021-12-08] MEDS: MAG HYDROX/AL HYDROX/SIMETH 30 ML UNIT-DOSE CUP PO PRN (06:18)
[2021-12-08] MEDS ORDERED: PANTOPRAZOLE 40 MG TABLET PO SCH (07:30)
[2021-12-08] MEDS: ASPIRIN 81 MG CHEWABLE TABLETS PO SCH (09:34)
[2021-12-08] MEDS: BUDESONIDE/FORMETEROL FUMARATE 160/4.5 mcg INHALER IH SCH ×3 (09:34→23:16)
[2021-12-08] MEDS: PRENATAL VITAMINS W/ FOLIC ACID TABLET (FP) PO SCH (09:34)
[2021-12-08] MEDS: LISINOPRIL 5 MG TABLET PO SCH (09:34)
[2021-12-08] MEDS: NICOTINE POLACRILEX 2 MG GUM BUC PRN ×2 (09:35→13:32)
[2021-12-08] MEDS: IBUPROFEN 400 MG TABLET (FP) PO PRN (19:56)
[2021-12-08] MEDS: ATORVASTATIN CA 10 MG TABLET (FP) PO SCH (23:15)
[2021-12-08] MEDS: MELATONIN 5 MG TABLETS PO SCH (23:15)
[2021-12-08] MEDS: QUEtiapine FUMARATE 100 MG TABLET (FP) PO SCH (23:16)
[2021-12-08] MEDS: MONTELUKAST NA 10 MG TABLET PO SCH ×2 (23:16)
[2021-12-08] MEDS: THIAMINE HCL 100 MG TABLET (FP) PO SCH (23:16)
[2021-12-09] MEDS: MAG HYDROX/AL HYDROX/SIMETH 30 ML UNIT-DOSE CUP PO PRN (06:27)
[2021-12-09] MEDS: ARTIFICIAL TEARS (POLYVINYL ALCOHOL) OPTH DROPS OU PRN (06:29)
[2021-12-09] MEDS: PRENATAL VITAMINS W/ FOLIC ACID TABLET (FP) PO SCH (09:58)
[2021-12-09] MEDS: LISINOPRIL 5 MG TABLET PO SCH (09:59)
[2021-12-09] MEDS: BUDESONIDE/FORMETEROL FUMARATE 160/4.5 mcg INHALER IH SCH ×2 (09:59→21:40)
[2021-12-09] MEDS: ASPIRIN 81 MG CHEWABLE TABLETS PO SCH (10:01)
[2021-12-09] MEDS: METHOCARBAMOL 500 MG TABLET PO PRN (10:02)
[2021-12-09] MEDS: IBUPROFEN 400 MG TABLET (FP) PO PRN (14:03)
[2021-12-09] MEDS: ATORVASTATIN CA 10 MG TABLET (FP) PO SCH (21:36)
[2021-12-09] MEDS: MONTELUKAST NA 10 MG TABLET PO SCH (21:37)
[2021-12-09] MEDS: THIAMINE HCL 100 MG TABLET (FP) PO SCH (21:37)
[2021-12-09] MEDS: QUEtiapine FUMARATE 100 MG TABLET (FP) PO SCH (21:37)
[2021-12-09] MEDS: MELATONIN 5 MG TABLETS PO SCH (21:40)
[2021-12-10] MEDS: ARTIFICIAL TEARS (POLYVINYL ALCOHOL) OPTH DROPS OU PRN (06:22)
[2021-12-10] MEDS: MAG HYDROX/AL HYDROX/SIMETH 30 ML UNIT-DOSE CUP PO PRN (06:23)
[2021-12-10] MEDS: IBUPROFEN 400 MG TABLET (FP) PO PRN ×2 (06:23→21:04)
[2021-12-10] MEDS ORDERED: ESCITALOPRAM OXALATE 10 MG TABLET ONE (09:04)
[2021-12-10] MEDS: ESCITALOPRAM OXALATE 20 MG TABLET PO SCH (09:51)
[2021-12-10] MEDS: ASPIRIN 81 MG CHEWABLE TABLETS PO SCH (09:51)
[2021-12-10] MEDS: LISINOPRIL 5 MG TABLET PO SCH (09:51)
[2021-12-10] MEDS: BUDESONIDE/FORMETEROL FUMARATE 160/4.5 mcg INHALER IH SCH ×2 (09:52→21:06)
[2021-12-10] MEDS: PRENATAL VITAMINS W/ FOLIC ACID TABLET (FP) PO SCH (09:52)
[2021-12-10] MEDS: NON-FORMULARY MED PO SCH (11:48)
[2021-12-10] MEDS: QUEtiapine FUMARATE 100 MG TABLET (FP) PO SCH (21:04)
[2021-12-10] MEDS: ATORVASTATIN CA 10 MG TABLET (FP) PO SCH (21:04)
[2021-12-10] MEDS: THIAMINE HCL 100 MG TABLET (FP) PO SCH (21:04)
[2021-12-10] MEDS: MONTELUKAST NA 10 MG TABLET PO SCH (21:04)
[2021-12-10] MEDS: MELATONIN 5 MG TABLETS PO SCH (21:06)
[2021-12-11] MEDS: MAG HYDROX/AL HYDROX/SIMETH 30 ML UNIT-DOSE CUP PO PRN ×2 (06:09→21:20)
[2021-12-11] MEDS: ARTIFICIAL TEARS (POLYVINYL ALCOHOL) OPTH DROPS OU PRN ×3 (06:09→21:22)
[2021-12-11] MEDS: IBUPROFEN 400 MG TABLET (FP) PO PRN (07:41)
[2021-12-11] MEDS: LISINOPRIL 5 MG TABLET PO SCH (09:32)
[2021-12-11] MEDS: ASPIRIN 81 MG CHEWABLE TABLETS PO SCH (09:32)
[2021-12-11] MEDS: PRENATAL VITAMINS W/ FOLIC ACID TABLET (FP) PO SCH (09:32)
[2021-12-11] MEDS: NON-FORMULARY MED PO SCH (09:32)
[2021-12-11] MEDS: ESCITALOPRAM OXALATE 20 MG TABLET PO SCH (09:32)
[2021-12-11] MEDS: BUDESONIDE/FORMETEROL FUMARATE 160/4.5 mcg INHALER IH SCH ×2 (09:34→21:21)
[2021-12-11] MEDS: METHOCARBAMOL 500 MG TABLET PO PRN (15:28)
[2021-12-11] MEDS: QUEtiapine FUMARATE 100 MG TABLET (FP) PO SCH (21:19)
[2021-12-11] MEDS: ATORVASTATIN CA 10 MG TABLET (FP) PO SCH (21:21)
[2021-12-11] MEDS: MELATONIN 5 MG TABLETS PO SCH (21:21)
[2021-12-11] MEDS: MONTELUKAST NA 10 MG TABLET PO SCH (21:21)
[2021-12-11] MEDS: THIAMINE HCL 100 MG TABLET (FP) PO SCH (21:21)
[2021-12-12] MEDS: ARTIFICIAL TEARS (POLYVINYL ALCOHOL) OPTH DROPS OU PRN (06:05)
[2021-12-12] MEDS: ESCITALOPRAM OXALATE 20 MG TABLET PO SCH (09:47)
[2021-12-12] MEDS: LISINOPRIL 5 MG TABLET PO SCH (09:47)
[2021-12-12] MEDS: ASPIRIN 81 MG CHEWABLE TABLETS PO SCH (09:47)
[2021-12-12] MEDS: IBUPROFEN 400 MG TABLET (FP) PO PRN ×2 (09:48→22:49)
[2021-12-12] MEDS: PRENATAL VITAMINS W/ FOLIC ACID TABLET (FP) PO SCH (09:48)
[2021-12-12] MEDS: NON-FORMULARY MED PO SCH (09:48)
[2021-12-12] MEDS: BUDESONIDE/FORMETEROL FUMARATE 160/4.5 mcg INHALER IH SCH ×2 (09:48→21:14)
[2021-12-12] MEDS: QUEtiapine FUMARATE 100 MG TABLET (FP) PO SCH (21:13)
[2021-12-12] MEDS: MONTELUKAST NA 10 MG TABLET PO SCH (21:14)
[2021-12-12] MEDS: THIAMINE HCL 100 MG TABLET (FP) PO SCH (21:14)
[2021-12-12] MEDS: ATORVASTATIN CA 10 MG TABLET (FP) PO SCH (21:14)
[2021-12-12] MEDS: MELATONIN 5 MG TABLETS PO SCH (21:14)
[2021-12-13] MEDS: MAG HYDROX/AL HYDROX/SIMETH 30 ML UNIT-DOSE CUP PO PRN (07:01)
[2021-12-13] MEDS ORDERED: ESCITALOPRAM OXALATE 10 MG TABLET ONE (09:14)
[2021-12-13] MEDS: ESCITALOPRAM OXALATE 20 MG TABLET PO SCH (10:01)
[2021-12-13] MEDS: ASPIRIN 81 MG CHEWABLE TABLETS PO SCH (10:01)
[2021-12-13] MEDS: NON-FORMULARY MED PO SCH (10:02)
[2021-12-13] MEDS: PRENATAL VITAMINS W/ FOLIC ACID TABLET (FP) PO SCH (10:02)
[2021-12-13] MEDS: LISINOPRIL 5 MG TABLET PO SCH (10:02)
[2021-12-13] MEDS: BUDESONIDE/FORMETEROL FUMARATE 160/4.5 mcg INHALER IH SCH ×2 (10:03→21:09)
[2021-12-13] MEDS: IBUPROFEN 400 MG TABLET (FP) PO PRN (10:04)
[2021-12-13] MEDS: ARTIFICIAL TEARS (POLYVINYL ALCOHOL) OPTH DROPS OU PRN (17:55)
[2021-12-13] MEDS: QUEtiapine FUMARATE 100 MG TABLET (FP) PO SCH (21:08)
[2021-12-13] MEDS: MELATONIN 5 MG TABLETS PO SCH (21:09)
[2021-12-13] MEDS: ATORVASTATIN CA 10 MG TABLET (FP) PO SCH (21:09)
[2021-12-13] MEDS: MONTELUKAST NA 10 MG TABLET PO SCH (21:09)
[2021-12-13] MEDS: THIAMINE HCL 100 MG TABLET (FP) PO SCH (21:09)
[2021-12-14] MEDS: ARTIFICIAL TEARS (POLYVINYL ALCOHOL) OPTH DROPS OU PRN ×2 (06:19→21:12)
[2021-12-14] MEDS: MAG HYDROX/AL HYDROX/SIMETH 30 ML UNIT-DOSE CUP PO PRN (06:19)
[2021-12-14] MEDS ORDERED: ESCITALOPRAM OXALATE 10 MG TABLET ONE (08:31)
[2021-12-14] MEDS: NON-FORMULARY MED PO SCH (10:02)
[2021-12-14] MEDS: ESCITALOPRAM OXALATE 20 MG TABLET PO SCH (10:02)
[2021-12-14] MEDS: LISINOPRIL 5 MG TABLET PO SCH (10:02)
[2021-12-14] MEDS: BUDESONIDE/FORMETEROL FUMARATE 160/4.5 mcg INHALER IH SCH ×2 (10:02→21:10)
[2021-12-14] MEDS: ASPIRIN 81 MG CHEWABLE TABLETS PO SCH (10:02)
[2021-12-14] MEDS: PRENATAL VITAMINS W/ FOLIC ACID TABLET (FP) PO SCH (10:02)
[2021-12-14] MEDS: IBUPROFEN 400 MG TABLET (FP) PO PRN ×2 (13:42→23:03)
[2021-12-14] MEDS: THIAMINE HCL 100 MG TABLET (FP) PO SCH (21:09)
[2021-12-14] MEDS: ATORVASTATIN CA 10 MG TABLET (FP) PO SCH (21:10)
[2021-12-14] MEDS: QUEtiapine FUMARATE 100 MG TABLET (FP) PO SCH (21:10)
[2021-12-14] MEDS: MELATONIN 5 MG TABLETS PO SCH (21:11)
[2021-12-14] MEDS: MONTELUKAST NA 10 MG TABLET PO SCH (21:12)
[2021-12-15] MEDS ORDERED: ESCITALOPRAM OXALATE 10 MG TABLET ONE (08:57)
[2021-12-15] MEDS: ASPIRIN 81 MG CHEWABLE TABLETS PO SCH (09:43)
[2021-12-15] MEDS: LISINOPRIL 5 MG TABLET PO SCH (09:43)
[2021-12-15] MEDS: ESCITALOPRAM OXALATE 20 MG TABLET PO SCH (09:44)
[2021-12-15] MEDS: BUDESONIDE/FORMETEROL FUMARATE 160/4.5 mcg INHALER IH SCH ×2 (09:44→21:17)
[2021-12-15] MEDS: PRENATAL VITAMINS W/ FOLIC ACID TABLET (FP) PO SCH (09:44)
[2021-12-15] MEDS: NON-FORMULARY MED PO SCH (09:44)
[2021-12-15] MEDS: IBUPROFEN 400 MG TABLET (FP) PO PRN ×2 (09:46→21:18)
[2021-12-15] MEDS: ARTIFICIAL TEARS (POLYVINYL ALCOHOL) OPTH DROPS OU PRN ×2 (09:47→15:44)
[2021-12-15] MEDS: MAG HYDROX/AL HYDROX/SIMETH 30 ML UNIT-DOSE CUP PO PRN (09:48)
[2021-12-15] MEDS: METHOCARBAMOL 500 MG TABLET PO PRN (15:42)
[2021-12-15] MEDS: ATORVASTATIN CA 10 MG TABLET (FP) PO SCH (21:17)
[2021-12-15] MEDS: QUEtiapine FUMARATE 100 MG TABLET (FP) PO SCH (21:17)
[2021-12-15] MEDS: MONTELUKAST NA 10 MG TABLET PO SCH (21:17)
[2021-12-15] MEDS: THIAMINE HCL 100 MG TABLET (FP) PO SCH (21:17)
[2021-12-15] MEDS: MELATONIN 5 MG TABLETS PO SCH (21:17)
[2021-12-16] MEDS: ARTIFICIAL TEARS (POLYVINYL ALCOHOL) OPTH DROPS OU PRN ×2 (06:41→15:44)
[2021-12-16] MEDS: MAG HYDROX/AL HYDROX/SIMETH 30 ML UNIT-DOSE CUP PO PRN (06:41)
[2021-12-16] MEDS: LISINOPRIL 5 MG TABLET PO SCH (09:39)
[2021-12-16] MEDS: ASPIRIN 81 MG CHEWABLE TABLETS PO SCH (09:39)
[2021-12-16] MEDS: NON-FORMULARY MED PO SCH (09:40)
[2021-12-16] MEDS: ESCITALOPRAM OXALATE 20 MG TABLET PO SCH (09:40)
[2021-12-16] MEDS: BUDESONIDE/FORMETEROL FUMARATE 160/4.5 mcg INHALER IH SCH ×2 (09:40→21:32)
[2021-12-16] MEDS: PRENATAL VITAMINS W/ FOLIC ACID TABLET (FP) PO SCH (09:40)
[2021-12-16] MEDS: IBUPROFEN 400 MG TABLET (FP) PO PRN ×2 (09:41→21:32)
[2021-12-16] MEDS: METHOCARBAMOL 500 MG TABLET PO PRN (15:45)
[2021-12-16] MEDS: MELATONIN 5 MG TABLETS PO SCH (21:32)
[2021-12-16] MEDS: THIAMINE HCL 100 MG TABLET (FP) PO SCH (21:32)
[2021-12-16] MEDS: ATORVASTATIN CA 10 MG TABLET (FP) PO SCH (21:32)
[2021-12-16] MEDS: QUEtiapine FUMARATE 100 MG TABLET (FP) PO SCH (21:32)
[2021-12-16] MEDS: MONTELUKAST NA 10 MG TABLET PO SCH (21:32)
[2021-12-17] MEDS: MAG HYDROX/AL HYDROX/SIMETH 30 ML UNIT-DOSE CUP PO PRN (06:35)
[2021-12-17] MEDS: ARTIFICIAL TEARS (POLYVINYL ALCOHOL) OPTH DROPS OU PRN ×2 (06:36→15:29)
[2021-12-17] MEDS ORDERED: ESCITALOPRAM OXALATE 10 MG TABLET ONE (08:24)
[2021-12-17] MEDS: NON-FORMULARY MED PO SCH (10:16)
[2021-12-17] MEDS: ASPIRIN 81 MG CHEWABLE TABLETS PO SCH (10:16)
[2021-12-17] MEDS: LISINOPRIL 5 MG TABLET PO SCH (10:16)
[2021-12-17] MEDS: PRENATAL VITAMINS W/ FOLIC ACID TABLET (FP) PO SCH (10:16)
[2021-12-17] MEDS: ESCITALOPRAM OXALATE 20 MG TABLET PO SCH (10:16)
[2021-12-17] MEDS: BUDESONIDE/FORMETEROL FUMARATE 160/4.5 mcg INHALER IH SCH ×2 (10:17→21:08)
[2021-12-17] MEDS: METHOCARBAMOL 500 MG TABLET PO PRN (15:29)
[2021-12-17] MEDS: MELATONIN 5 MG TABLETS PO SCH (21:08)
[2021-12-17] MEDS: ATORVASTATIN CA 10 MG TABLET (FP) PO SCH (21:08)
[2021-12-17] MEDS: QUEtiapine FUMARATE 100 MG TABLET (FP) PO SCH (21:08)
[2021-12-17] MEDS: THIAMINE HCL 100 MG TABLET (FP) PO SCH (21:08)
[2021-12-17] MEDS: IBUPROFEN 400 MG TABLET (FP) PO PRN (21:09)
[2021-12-17] MEDS: MONTELUKAST NA 10 MG TABLET PO SCH (21:10)
[2021-12-18] MEDS: MAG HYDROX/AL HYDROX/SIMETH 30 ML UNIT-DOSE CUP PO PRN (06:05)
[2021-12-18] MEDS: IBUPROFEN 400 MG TABLET (FP) PO PRN ×2 (06:46→21:10)
[2021-12-18] MEDS: ARTIFICIAL TEARS (POLYVINYL ALCOHOL) OPTH DROPS OU PRN ×2 (06:48→14:29)
[2021-12-18] MEDS ORDERED: ESCITALOPRAM OXALATE 10 MG TABLET ONE (08:44)
[2021-12-18] MEDS: ESCITALOPRAM OXALATE 20 MG TABLET PO SCH (10:01)
[2021-12-18] MEDS: LISINOPRIL 5 MG TABLET PO SCH (10:01)
[2021-12-18] MEDS: ASPIRIN 81 MG CHEWABLE TABLETS PO SCH (10:01)
[2021-12-18] MEDS: PRENATAL VITAMINS W/ FOLIC ACID TABLET (FP) PO SCH (10:01)
[2021-12-18] MEDS: BUDESONIDE/FORMETEROL FUMARATE 160/4.5 mcg INHALER IH SCH ×2 (10:02→21:10)
[2021-12-18] MEDS: NON-FORMULARY MED PO SCH (10:02)
[2021-12-18] MEDS: METHOCARBAMOL 500 MG TABLET PO PRN (14:29)
[2021-12-18] MEDS: MELATONIN 5 MG TABLETS PO SCH (21:10)
[2021-12-18] MEDS: THIAMINE HCL 100 MG TABLET (FP) PO SCH (21:10)
[2021-12-18] MEDS: ATORVASTATIN CA 10 MG TABLET (FP) PO SCH (21:11)
[2021-12-18] MEDS: QUEtiapine FUMARATE 100 MG TABLET (FP) PO SCH (21:11)
[2021-12-18] MEDS: MONTELUKAST NA 10 MG TABLET PO SCH (21:11)
[2021-12-19] MEDS: MAG HYDROX/AL HYDROX/SIMETH 30 ML UNIT-DOSE CUP PO PRN (06:32)
[2021-12-19] MEDS: ARTIFICIAL TEARS (POLYVINYL ALCOHOL) OPTH DROPS OU PRN (06:32)
[2021-12-19 06:40] VITALS: TEMP 98
[2021-12-19] MEDS ORDERED: ESCITALOPRAM OXALATE 10 MG TABLET ONE (09:02)
[2021-12-19 09:09] VITALS: BP 128/80; PULSE 85
[2021-12-19] MEDS: ESCITALOPRAM OXALATE 20 MG TABLET PO SCH (09:50)
[2021-12-19] MEDS: ASPIRIN 81 MG CHEWABLE TABLETS PO SCH (09:50)
[2021-12-19] MEDS: NON-FORMULARY MED PO SCH (09:51)
[2021-12-19] MEDS: PRENATAL VITAMINS W/ FOLIC ACID TABLET (FP) PO SCH (09:51)
[2021-12-19] MEDS: BUDESONIDE/FORMETEROL FUMARATE 160/4.5 mcg INHALER IH SCH (09:51)
[2021-12-19] MEDS: LISINOPRIL 5 MG TABLET PO SCH (09:51)
== END 2021-12-19 10:27 | disposition home or self-care (01) | DRG 772 ==
LOC: YASAS 11:41 → Y3E 11:42
PROVIDERS: ADMIT Allergy & Immunology; ATTEND Psychiatry & Neurology Pain Medicine
PROC: HZ42ZZZ Group Counseling for Substance Abuse Treatment, Cognitive-Behavioral (ICD-10-PCS; principal; 2021-11-22)
DX: F11.20 Opioid dependence, uncomplicated (principal); F10.20 Alcohol dependence, uncomplicated; F13.20 Sedative, hypnotic or anxiolytic dependence, uncomplicated; F17.210 Nicotine dependence, cigarettes, uncomplicated; F19.282 Other psychoactive substance dependence with psychoactive substance-induced sleep disorder; F31.9 Bipolar disorder, unspecified; F43.10 Post-traumatic stress disorder, unspecified; E78.5 Hyperlipidemia, unspecified; I25.119 Atherosclerotic heart disease of native coronary artery with unspecified angina pectoris; I10 Essential (primary) hypertension; J44.9 Chronic obstructive pulmonary disease, unspecified; M17.0 Bilateral primary osteoarthritis of knee; M19.041 Primary osteoarthritis, right hand; M19.042 Primary osteoarthritis, left hand; M54.50 Low back pain, unspecified; G89.29 Other chronic pain; K21.9 Gastro-esophageal reflux disease without esophagitis; H91.92 Unspecified hearing loss, left ear; Z88.0 Allergy status to penicillin; Z88.8 Allergy status to other drugs, medicaments and biological substances; Z91.013 Allergy to seafood
CPT/HCPCS: 36415; 87389

== ENCOUNTER 2022-03-26 14:05 | Inpatient (IN) | payer OTHER ==
[2022-03-26] MEDS ORDERED: BISMUTH SUBSALICYLATE 524 MG/30 ML PO PRN (17:46)
[2022-03-26] MEDS ORDERED: LOPERAMIDE HCL 2 MG CAPSULE PO PRN (17:46)
[2022-03-26] MEDS ORDERED: MAGNESIUM HYDROX 2400MG/30ML ORAL SUSPENSION 30 ML CUP PO PRN (17:46)
[2022-03-26] MEDS ORDERED: ONDANSETRON *ODT* 4 MG TABLET SL PRN (17:46)
[2022-03-26] MEDS ORDERED: DICYCLOMINE HCL 10 MG CAPSULE PO PRN (17:46)
[2022-03-26] MEDS ORDERED: ACETAMINOPHEN 325 MG TABLET (FP) PO PRN ×2 (17:46)
[2022-03-26] MEDS ORDERED: IBUPROFEN 400 MG TABLET (FP) PO PRN (17:46)
[2022-03-26] MEDS ORDERED: BENZOCAINE/MENTHOL (CHLORASEPTIC ) LOZENGE MM PRN (17:46)
[2022-03-26] MEDS ORDERED: NALOXONE HCL (KLOXXADO) 8 MG SPRAY NS PRN (17:46)
[2022-03-26] MEDS ORDERED: MAGNESIUM CITRATE 300 ML BOTTLE PO PRN (17:46)
[2022-03-26] MEDS ORDERED: IBUPROFEN 600 MG TABLET (FP) PO PRN (17:46)
[2022-03-26] MEDS ORDERED: NICOTINE 10 MG CARTRIDGE (INHALER) IH PRN (17:46)
[2022-03-26] MEDS ORDERED: hydrOXYzine PAMOATE 25 MG CAPSULE (FP) PO SCH (18:00)
[2022-03-26] MEDS: NICOTINE POLACRILEX 2 MG GUM BC PRN (18:30)
[2022-03-26] MEDS: PRENATAL VITAMINS W/ FOLIC ACID TABLET (FP) PO SCH (18:30)
[2022-03-26] MEDS ORDERED: NICOTINE 14 MG/24 HOURS TOPICAL PATCH TD SCH (19:00)
[2022-03-26] MEDS: LISINOPRIL 5 MG TABLET PO SCH (19:09)
[2022-03-26] MEDS: ASPIRIN 81 MG CHEWABLE TABLETS PO SCH (19:09)
[2022-03-26] MEDS: THIAMINE HCL 100 MG TABLET (FP) PO SCH (22:08)
[2022-03-26] MEDS: MELATONIN 5 MG TABLETS PO SCH (22:08)
[2022-03-26] MEDS: MONTELUKAST NA 10 MG TABLET PO SCH (22:08)
[2022-03-26] MEDS: BUDESONIDE/FORMETEROL FUMARATE 160/4.5 mcg INHALER IH SCH (22:08)
[2022-03-26] MEDS: ATORVASTATIN CA 10 MG TABLET (FP) PO SCH (22:08)
[2022-03-26] MEDS: ARTIFICIAL TEARS (POLYVINYL ALCOHOL) OPTH DROPS OU PRN (22:56)
[2022-03-27] MEDS ORDERED: methaDONE HCL 10 MG TABLET (FOR DETOX USE ONLY) PO ONE (09:13)
[2022-03-27] MEDS ORDERED: cloNIDine HCL 0.1 MG TABLET PO PRN (09:13)
[2022-03-27] MEDS: PANTOPRAZOLE 40 MG TABLET PO SCH (10:11)
[2022-03-27] MEDS: LISINOPRIL 5 MG TABLET PO SCH (10:11)
[2022-03-27] MEDS: ASPIRIN 81 MG CHEWABLE TABLETS PO SCH (10:11)
[2022-03-27] MEDS: METHOCARBAMOL 500 MG TABLET PO PRN (10:11)
[2022-03-27] MEDS: PRENATAL VITAMINS W/ FOLIC ACID TABLET (FP) PO SCH (10:12)
[2022-03-27] MEDS: BUDESONIDE/FORMETEROL FUMARATE 160/4.5 mcg INHALER IH SCH ×2 (10:12→22:13)
[2022-03-27] MEDS ORDERED: FLU VACC QS2022-23(6MOS UP)/PF 60 MCG/0.5 ML SYRINGE IM ONE (12:00)
[2022-03-27 13:44] LABS: HEMATOCRIT 43.3 % (35.4-49); HEMOGLOBIN 13.8 GM/dL (11.7-16.9); MCH 28.9 pg (25.7-33.7); MEAN CELL VOLUME 90.5 fl (80-96); MEAN PLT VOLUME 9.8 fl (7.5-11.1); PLATELET COUNT 233 10^3/uL (134-434); RBC 4.78 M/mm3 (4.00-5.60); RDW 14.2 % (11.9-15.9); WHITE BLOOD COUNT 7.2 K/mm3 (4.0-10.0)
[2022-03-27 13:50] LABS: ALBUMIN 3.6 g/dl (3.4-5.0); BLOOD UREA NITROGEN 14.4 mg/dL (7-18)
[2022-03-27 13:53] LABS: CREATININE 0.9 mg/dL (0.55-1.3)
[2022-03-27 13:55] LABS: BILIRUBIN,TOTAL 0.4 mg/dL (0.2-1); TOT PROT 6.1 g/dl (6.4-8.2)
[2022-03-27] MEDS: NICOTINE POLACRILEX 2 MG GUM BC PRN ×2 (14:11→17:45)
[2022-03-27] MEDS: ARTIFICIAL TEARS (POLYVINYL ALCOHOL) OPTH DROPS OU PRN ×2 (14:12→22:14)
[2022-03-27] MEDS: ATORVASTATIN CA 10 MG TABLET (FP) PO SCH (22:12)
[2022-03-27] MEDS: THIAMINE HCL 100 MG TABLET (FP) PO SCH (22:12)
[2022-03-27] MEDS: MONTELUKAST NA 10 MG TABLET PO SCH (22:13)
[2022-03-27] MEDS: MELATONIN 5 MG TABLETS PO SCH (22:13)
[2022-03-27] MEDS: MAG HYDROX/AL HYDROX/SIMETH 30 ML UNIT-DOSE CUP PO PRN (23:16)
[2022-03-28] MEDS: MAG HYDROX/AL HYDROX/SIMETH 30 ML UNIT-DOSE CUP PO PRN (07:17)
[2022-03-28] MEDS: ARTIFICIAL TEARS (POLYVINYL ALCOHOL) OPTH DROPS OU PRN ×2 (08:00→22:13)
[2022-03-28] MEDS: diazePAM 5 MG TABLET PO PRN ×2 (10:08→22:15)
[2022-03-28] MEDS: ASPIRIN 81 MG CHEWABLE TABLETS PO SCH (10:09)
[2022-03-28] MEDS: PRENATAL VITAMINS W/ FOLIC ACID TABLET (FP) PO SCH (10:09)
[2022-03-28] MEDS: LISINOPRIL 5 MG TABLET PO SCH (10:09)
[2022-03-28] MEDS: METHOCARBAMOL 500 MG TABLET PO PRN (10:09)
[2022-03-28] MEDS: PANTOPRAZOLE 40 MG TABLET PO SCH (10:09)
[2022-03-28] MEDS: BUDESONIDE/FORMETEROL FUMARATE 160/4.5 mcg INHALER IH SCH ×2 (10:09→22:13)
[2022-03-28] MEDS ORDERED: ESCITALOPRAM OXALATE 10 MG TABLET PO ONE (14:54)
[2022-03-28] MEDS: NICOTINE POLACRILEX 2 MG GUM BC PRN (16:57)
[2022-03-28] MEDS ORDERED: QUEtiapine FUMARATE 200 MG TABLET PO ONE (22:00)
[2022-03-28] MEDS: ATORVASTATIN CA 10 MG TABLET (FP) PO SCH (22:11)
[2022-03-28] MEDS: MONTELUKAST NA 10 MG TABLET PO SCH (22:11)
[2022-03-28] MEDS: THIAMINE HCL 100 MG TABLET (FP) PO SCH (22:11)
[2022-03-28] MEDS: ALBUTEROL SO4 HFA INHALER IH PRN (22:12)
[2022-03-28] MEDS: MELATONIN 5 MG TABLETS PO SCH (22:17)
[2022-03-29] MEDS: diazePAM 5 MG TABLET PO PRN ×2 (05:22→10:33)
[2022-03-29] MEDS ORDERED: methaDONE HCL 10 MG TABLET (FOR DETOX USE ONLY) PO ONE (10:00)
[2022-03-29] MEDS: ASPIRIN 81 MG CHEWABLE TABLETS PO SCH (10:32)
[2022-03-29] MEDS: PRENATAL VITAMINS W/ FOLIC ACID TABLET (FP) PO SCH (10:33)
[2022-03-29] MEDS: PANTOPRAZOLE 40 MG TABLET PO SCH (10:33)
[2022-03-29] MEDS: METHOCARBAMOL 500 MG TABLET PO PRN (10:33)
[2022-03-29] MEDS: LISINOPRIL 5 MG TABLET PO SCH (10:33)
[2022-03-29] MEDS: BUDESONIDE/FORMETEROL FUMARATE 160/4.5 mcg INHALER IH SCH ×2 (10:33→22:21)
[2022-03-29] MEDS: ESCITALOPRAM OXALATE 10 MG TABLET PO SCH (11:02)
[2022-03-29] MEDS: ARTIFICIAL TEARS (POLYVINYL ALCOHOL) OPTH DROPS OU PRN (17:04)
[2022-03-29] MEDS: MONTELUKAST NA 10 MG TABLET PO SCH (22:20)
[2022-03-29] MEDS: ATORVASTATIN CA 10 MG TABLET (FP) PO SCH (22:20)
[2022-03-29] MEDS: QUEtiapine FUMARATE 200 MG TABLET PO SCH (22:20)
[2022-03-29] MEDS: THIAMINE HCL 100 MG TABLET (FP) PO SCH (22:20)
[2022-03-29] MEDS: ALBUTEROL SO4 HFA INHALER IH PRN (22:21)
[2022-03-29] MEDS: MELATONIN 5 MG TABLETS PO SCH (22:22)
[2022-03-30] MEDS: ARTIFICIAL TEARS (POLYVINYL ALCOHOL) OPTH DROPS OU PRN (05:12)
[2022-03-30] MEDS: ASPIRIN 81 MG CHEWABLE TABLETS PO SCH (10:08)
[2022-03-30] MEDS: PRENATAL VITAMINS W/ FOLIC ACID TABLET (FP) PO SCH (10:08)
[2022-03-30] MEDS: PANTOPRAZOLE 40 MG TABLET PO SCH (10:09)
[2022-03-30] MEDS: ESCITALOPRAM OXALATE 10 MG TABLET PO SCH (10:09)
[2022-03-30] MEDS: LISINOPRIL 5 MG TABLET PO SCH (10:09)
[2022-03-30] MEDS: METHOCARBAMOL 500 MG TABLET PO PRN (10:10)
[2022-03-30] MEDS: BUDESONIDE/FORMETEROL FUMARATE 160/4.5 mcg INHALER IH SCH ×2 (10:10→22:34)
[2022-03-30] MEDS: NICOTINE POLACRILEX 2 MG GUM BC PRN (10:59)
[2022-03-30] MEDS: METHYL SALICYLATE/MENTHOL OINT 30 GM TUBE TP SCH ×2 (15:19→22:33)
[2022-03-30] MEDS: THIAMINE HCL 100 MG TABLET (FP) PO SCH (22:33)
[2022-03-30] MEDS: QUEtiapine FUMARATE 200 MG TABLET PO SCH (22:34)
[2022-03-30] MEDS: MELATONIN 5 MG TABLETS PO SCH (22:34)
[2022-03-30] MEDS: MONTELUKAST NA 10 MG TABLET PO SCH (22:34)
[2022-03-30] MEDS: ATORVASTATIN CA 10 MG TABLET (FP) PO SCH (22:34)
[2022-03-31] MEDS: MAG HYDROX/AL HYDROX/SIMETH 30 ML UNIT-DOSE CUP PO PRN (07:50)
[2022-03-31] MEDS: ARTIFICIAL TEARS (POLYVINYL ALCOHOL) OPTH DROPS OU PRN (07:52)
[2022-03-31] MEDS ORDERED: methaDONE HCL 10 MG TABLET (FOR DETOX USE ONLY) PO ONE (10:00)
[2022-03-31] MEDS: PRENATAL VITAMINS W/ FOLIC ACID TABLET (FP) PO SCH (10:20)
[2022-03-31] MEDS: METHOCARBAMOL 500 MG TABLET PO PRN (10:21)
[2022-03-31] MEDS: ESCITALOPRAM OXALATE 10 MG TABLET PO SCH (10:21)
[2022-03-31] MEDS: PANTOPRAZOLE 40 MG TABLET PO SCH (10:21)
[2022-03-31] MEDS: LISINOPRIL 5 MG TABLET PO SCH (10:21)
[2022-03-31] MEDS: ASPIRIN 81 MG CHEWABLE TABLETS PO SCH (10:21)
[2022-03-31] MEDS: METHYL SALICYLATE/MENTHOL OINT 30 GM TUBE TP SCH ×2 (10:23→22:41)
[2022-03-31] MEDS: BUDESONIDE/FORMETEROL FUMARATE 160/4.5 mcg INHALER IH SCH ×2 (10:24→22:42)
[2022-03-31] MEDS: ALBUTEROL SO4 HFA INHALER IH PRN (10:25)
[2022-03-31] MEDS: NICOTINE POLACRILEX 2 MG GUM BC PRN (16:15)
[2022-03-31] MEDS: MELATONIN 5 MG TABLETS PO SCH (22:41)
[2022-03-31] MEDS: ATORVASTATIN CA 10 MG TABLET (FP) PO SCH (22:41)
[2022-03-31] MEDS: MONTELUKAST NA 10 MG TABLET PO SCH (22:41)
[2022-03-31] MEDS: QUEtiapine FUMARATE 200 MG TABLET PO SCH (22:41)
[2022-03-31] MEDS: THIAMINE HCL 100 MG TABLET (FP) PO SCH (22:41)
[2022-04-01 06:07] VITALS: RESP 18
[2022-04-01 09:14] VITALS: BP 113/65; PULSE 67; TEMP 98.1
[2022-04-01] MEDS: PRENATAL VITAMINS W/ FOLIC ACID TABLET (FP) PO SCH (10:15)
[2022-04-01] MEDS: BUDESONIDE/FORMETEROL FUMARATE 160/4.5 mcg INHALER IH SCH (10:16)
[2022-04-01] MEDS: ASPIRIN 81 MG CHEWABLE TABLETS PO SCH (10:16)
[2022-04-01] MEDS: METHOCARBAMOL 500 MG TABLET PO PRN (10:16)
[2022-04-01] MEDS: LISINOPRIL 5 MG TABLET PO SCH (10:16)
[2022-04-01] MEDS: ESCITALOPRAM OXALATE 10 MG TABLET PO SCH (10:16)
[2022-04-01] MEDS: PANTOPRAZOLE 40 MG TABLET PO SCH (10:16)
[2022-04-01] MEDS: METHYL SALICYLATE/MENTHOL OINT 30 GM TUBE TP SCH (10:17)
[2022-04-01] MEDS: ALBUTEROL SO4 HFA INHALER IH PRN (10:19)
[2022-04-01] MEDS: ARTIFICIAL TEARS (POLYVINYL ALCOHOL) OPTH DROPS OU PRN (10:20)
== END 2022-04-01 12:37 | disposition other institution (70) | DRG 773 ==
LOC: YASAS 14:05 → UNDOADMIN 17:44 → Y6N 17:44
PROVIDERS: ADMIT Allergy & Immunology; ATTEND Surgery
PROC: HZ2ZZZZ Detoxification Services for Substance Abuse Treatment (ICD-10-PCS; principal; 2022-03-26)
DX: F11.23 Opioid dependence with withdrawal (principal); F10.230 Alcohol dependence with withdrawal, uncomplicated; F17.210 Nicotine dependence, cigarettes, uncomplicated; F19.282 Other psychoactive substance dependence with psychoactive substance-induced sleep disorder; F19.24 Other psychoactive substance dependence with psychoactive substance-induced mood disorder; G47.00 Insomnia, unspecified; E78.5 Hyperlipidemia, unspecified; I25.10 Atherosclerotic heart disease of native coronary artery without angina pectoris; I10 Essential (primary) hypertension; J44.9 Chronic obstructive pulmonary disease, unspecified; K21.9 Gastro-esophageal reflux disease without esophagitis; M17.0 Bilateral primary osteoarthritis of knee; M15.9 Polyosteoarthritis, unspecified; R73.9 Hyperglycemia, unspecified; Z88.0 Allergy status to penicillin; Z88.8 Allergy status to other drugs, medicaments and biological substances
CPT/HCPCS: 36415; 80053; 82947; 83036; 85027; 86780; C9803-CS; G0008; Q2036; U0003; U0005

== ENCOUNTER 2022-04-01 12:38 | Inpatient (IN) | payer OTHER ==
[2022-04-01] MEDS ORDERED: hydrOXYzine PAMOATE 25 MG CAPSULE (FP) PO PRN (13:06)
[2022-04-01] MEDS ORDERED: MAGNESIUM HYDROX 2400MG/30ML ORAL SUSPENSION 30 ML CUP PO PRN (13:06)
[2022-04-01] MEDS ORDERED: LOPERAMIDE HCL 2 MG CAPSULE PO PRN (13:06)
[2022-04-01] MEDS ORDERED: P-EPHED 60MG/TRIPROLIDI 2.5MG TABLET PO PRN (13:06)
[2022-04-01] MEDS ORDERED: NICOTINE 10 MG CARTRIDGE (INHALER) IH PRN (13:06)
[2022-04-01] MEDS ORDERED: NALOXONE HCL (KLOXXADO) 8 MG SPRAY NS PRN (13:06)
[2022-04-01] MEDS ORDERED: ACETAMINOPHEN 325 MG TABLET (FP) PO PRN (13:06)
[2022-04-01] MEDS ORDERED: guaiFENesin 200 MG/10 ML 10 ML UNIT-DOSE CUPS PO PRN (13:06)
[2022-04-01] MEDS ORDERED: MAGNESIUM CITRATE 300 ML BOTTLE PO PRN (13:06)
[2022-04-01] MEDS ORDERED: ALBUTEROL SO4 HFA INHALER IH PRN (13:12)
[2022-04-01] MEDS ORDERED: PANTOPRAZOLE 40 MG TABLET PO SCH (13:15)
[2022-04-01] MEDS: ARTIFICIAL TEARS (POLYVINYL ALCOHOL) OPTH DROPS OU PRN (20:10)
[2022-04-01] MEDS: BUDESONIDE IH SCH (21:40)
[2022-04-01] MEDS: FORMETEROL FUMARATE IH SCH (21:40)
[2022-04-01] MEDS: THIAMINE HCL 100 MG TABLET (FP) PO SCH (21:40)
[2022-04-01] MEDS: MELATONIN 5 MG TABLETS PO SCH (21:40)
[2022-04-01] MEDS: QUEtiapine FUMARATE 200 MG TABLET PO SCH (21:40)
[2022-04-01] MEDS: MONTELUKAST NA 10 MG TABLET PO SCH (21:40)
[2022-04-01] MEDS: ATORVASTATIN CA 10 MG TABLET (FP) PO SCH (21:40)
[2022-04-01] MEDS ORDERED: BUDESONIDE/FORMETEROL FUMARATE 160/4.5 mcg INHALER IH SCH (22:00)
[2022-04-02] MEDS: PRENATAL VITAMINS W/ FOLIC ACID TABLET (FP) PO SCH (09:54)
[2022-04-02] MEDS: ESCITALOPRAM OXALATE 10 MG TABLET PO SCH (09:55)
[2022-04-02] MEDS: LISINOPRIL 5 MG TABLET PO SCH (09:55)
[2022-04-02] MEDS: FORMETEROL FUMARATE IH SCH ×2 (09:55→21:35)
[2022-04-02] MEDS: PANTOPRAZOLE 40 MG TABLET PO SCH (09:55)
[2022-04-02] MEDS: ASPIRIN 81 MG CHEWABLE TABLETS PO SCH (09:55)
[2022-04-02] MEDS: BUDESONIDE IH SCH ×2 (09:55→21:35)
[2022-04-02] MEDS: METHOCARBAMOL 500 MG TABLET PO PRN (09:56)
[2022-04-02] MEDS: NICOTINE POLACRILEX 2 MG GUM BC PRN (09:58)
[2022-04-02] MEDS: ARTIFICIAL TEARS (POLYVINYL ALCOHOL) OPTH DROPS OU PRN ×2 (09:59→21:36)
[2022-04-02] MEDS ORDERED: NICOTINE 7 MG/24 HOURS TOPICAL PATCH TD SCH (10:00)
[2022-04-02 15:30] LABS: URINE APPEARANCE CLEAR; URINE BILIRUBIN NEGATIVE (NEGATIVE); URINE COLOR YELLOW; URINE GLUCOSE (UA) NEGATIVE (NEGATIVE); URINE KETONE NEGATIVE (NEGATIVE); URINE LEUK ESTERASE NEGATIVE (NEGATIVE); URINE NITRITE NEGATIVE (NEGATIVE); URINE PROTEIN NEGATIVE (NEGATIVE); URINE UROBILINOGEN 0.2 mg/dL (0.2-1.0)
[2022-04-02] MEDS: MONTELUKAST NA 10 MG TABLET PO SCH (21:36)
[2022-04-02] MEDS: THIAMINE HCL 100 MG TABLET (FP) PO SCH (21:36)
[2022-04-02] MEDS: QUEtiapine FUMARATE 200 MG TABLET PO SCH (21:36)
[2022-04-02] MEDS: MELATONIN 5 MG TABLETS PO SCH (21:36)
[2022-04-02] MEDS: ATORVASTATIN CA 10 MG TABLET (FP) PO SCH (21:36)
[2022-04-03] MEDS: ASPIRIN 81 MG CHEWABLE TABLETS PO SCH (09:31)
[2022-04-03] MEDS: PRENATAL VITAMINS W/ FOLIC ACID TABLET (FP) PO SCH (09:31)
[2022-04-03] MEDS: BUDESONIDE IH SCH ×2 (09:31→21:27)
[2022-04-03] MEDS: PANTOPRAZOLE 40 MG TABLET PO SCH (09:31)
[2022-04-03] MEDS: LISINOPRIL 5 MG TABLET PO SCH (09:31)
[2022-04-03] MEDS: ESCITALOPRAM OXALATE 10 MG TABLET PO SCH (09:31)
[2022-04-03] MEDS: FORMETEROL FUMARATE IH SCH ×2 (09:31→21:27)
[2022-04-03] MEDS: NICOTINE POLACRILEX 2 MG GUM BC PRN (09:33)
[2022-04-03] MEDS: THIAMINE HCL 100 MG TABLET (FP) PO SCH (21:27)
[2022-04-03] MEDS: ATORVASTATIN CA 10 MG TABLET (FP) PO SCH (21:27)
[2022-04-03] MEDS: MELATONIN 5 MG TABLETS PO SCH (21:27)
[2022-04-03] MEDS: QUEtiapine FUMARATE 200 MG TABLET PO SCH (21:27)
[2022-04-03] MEDS: MONTELUKAST NA 10 MG TABLET PO SCH (21:28)
[2022-04-04] MEDS: FORMETEROL FUMARATE IH SCH ×2 (10:12→21:14)
[2022-04-04] MEDS: BUDESONIDE IH SCH ×2 (10:12→21:14)
[2022-04-04] MEDS: MAG HYDROX/AL HYDROX/SIMETH 30 ML UNIT-DOSE CUP PO PRN (10:13)
[2022-04-04] MEDS: ASPIRIN 81 MG CHEWABLE TABLETS PO SCH (10:13)
[2022-04-04] MEDS: LISINOPRIL 5 MG TABLET PO SCH (10:13)
[2022-04-04] MEDS: ESCITALOPRAM OXALATE 10 MG TABLET PO SCH (10:14)
[2022-04-04] MEDS: PRENATAL VITAMINS W/ FOLIC ACID TABLET (FP) PO SCH (10:14)
[2022-04-04] MEDS: NICOTINE POLACRILEX 2 MG GUM BC PRN (10:31)
[2022-04-04] MEDS: PANTOPRAZOLE 40 MG TABLET PO SCH (12:21)
[2022-04-04] MEDS: ARTIFICIAL TEARS (POLYVINYL ALCOHOL) OPTH DROPS OU PRN ×2 (12:36→21:15)
[2022-04-04] MEDS: ATORVASTATIN CA 10 MG TABLET (FP) PO SCH (21:14)
[2022-04-04] MEDS: MELATONIN 5 MG TABLETS PO SCH (21:14)
[2022-04-04] MEDS: THIAMINE HCL 100 MG TABLET (FP) PO SCH (21:14)
[2022-04-04] MEDS: QUEtiapine FUMARATE 200 MG TABLET PO SCH (21:14)
[2022-04-04] MEDS: MONTELUKAST NA 10 MG TABLET PO SCH (21:14)
[2022-04-05] MEDS: MAG HYDROX/AL HYDROX/SIMETH 30 ML UNIT-DOSE CUP PO PRN (06:39)
[2022-04-05] MEDS: FORMETEROL FUMARATE IH SCH ×2 (10:17→21:09)
[2022-04-05] MEDS: BUDESONIDE IH SCH ×2 (10:17→21:09)
[2022-04-05] MEDS: PRENATAL VITAMINS W/ FOLIC ACID TABLET (FP) PO SCH (10:17)
[2022-04-05] MEDS: ARTIFICIAL TEARS (POLYVINYL ALCOHOL) OPTH DROPS OU PRN (10:18)
[2022-04-05] MEDS: PANTOPRAZOLE 40 MG TABLET PO SCH (10:19)
[2022-04-05] MEDS: ASPIRIN 81 MG CHEWABLE TABLETS PO SCH (10:19)
[2022-04-05] MEDS: LISINOPRIL 5 MG TABLET PO SCH (10:19)
[2022-04-05] MEDS: ESCITALOPRAM OXALATE 10 MG TABLET PO SCH (10:19)
[2022-04-05] MEDS: MONTELUKAST NA 10 MG TABLET PO SCH (21:09)
[2022-04-05] MEDS: QUEtiapine FUMARATE 200 MG TABLET PO SCH (21:09)
[2022-04-05] MEDS: ATORVASTATIN CA 10 MG TABLET (FP) PO SCH (21:09)
[2022-04-05] MEDS: THIAMINE HCL 100 MG TABLET (FP) PO SCH (21:09)
[2022-04-05] MEDS: MELATONIN 5 MG TABLETS PO SCH (21:09)
[2022-04-06] MEDS: MAG HYDROX/AL HYDROX/SIMETH 30 ML UNIT-DOSE CUP PO PRN (06:30)
[2022-04-06] MEDS: PRENATAL VITAMINS W/ FOLIC ACID TABLET (FP) PO SCH (09:57)
[2022-04-06] MEDS: FORMETEROL FUMARATE IH SCH ×2 (09:57→21:40)
[2022-04-06] MEDS: BUDESONIDE IH SCH ×2 (09:57→21:40)
[2022-04-06] MEDS: ARTIFICIAL TEARS (POLYVINYL ALCOHOL) OPTH DROPS OU PRN (09:57)
[2022-04-06] MEDS: ASPIRIN 81 MG CHEWABLE TABLETS PO SCH (09:58)
[2022-04-06] MEDS: LISINOPRIL 5 MG TABLET PO SCH (09:58)
[2022-04-06] MEDS: ESCITALOPRAM OXALATE 10 MG TABLET PO SCH (09:58)
[2022-04-06] MEDS: PANTOPRAZOLE 40 MG TABLET PO SCH (09:58)
[2022-04-06] MEDS: THIAMINE HCL 100 MG TABLET (FP) PO SCH (21:39)
[2022-04-06] MEDS: MELATONIN 5 MG TABLETS PO SCH (21:39)
[2022-04-06] MEDS: ATORVASTATIN CA 10 MG TABLET (FP) PO SCH (21:40)
[2022-04-06] MEDS: QUEtiapine FUMARATE 200 MG TABLET PO SCH (21:40)
[2022-04-06] MEDS: MONTELUKAST NA 10 MG TABLET PO SCH (21:40)
[2022-04-06] MEDS: PATIENT,S OWN MED:ALBUTEROL SO4 HFA INHALER IH PRN (21:41)
[2022-04-07] MEDS: FORMETEROL FUMARATE IH SCH ×2 (09:17→21:48)
[2022-04-07] MEDS: ARTIFICIAL TEARS (POLYVINYL ALCOHOL) OPTH DROPS OU PRN (09:17)
[2022-04-07] MEDS: BUDESONIDE IH SCH ×2 (09:17→21:48)
[2022-04-07] MEDS: LISINOPRIL 5 MG TABLET PO SCH (09:17)
[2022-04-07] MEDS: PANTOPRAZOLE 40 MG TABLET PO SCH (09:18)
[2022-04-07] MEDS: ESCITALOPRAM OXALATE 10 MG TABLET PO SCH (09:18)
[2022-04-07] MEDS: ASPIRIN 81 MG CHEWABLE TABLETS PO SCH (09:18)
[2022-04-07] MEDS: PRENATAL VITAMINS W/ FOLIC ACID TABLET (FP) PO SCH (09:18)
[2022-04-07] MEDS: METHOCARBAMOL 500 MG TABLET PO PRN (09:19)
[2022-04-07] MEDS: PATIENT,S OWN MED:ALBUTEROL SO4 HFA INHALER IH PRN ×2 (09:19→21:45)
[2022-04-07] MEDS: MELATONIN 5 MG TABLETS PO SCH (21:43)
[2022-04-07] MEDS: THIAMINE HCL 100 MG TABLET (FP) PO SCH (21:45)
[2022-04-07] MEDS: QUEtiapine FUMARATE 200 MG TABLET PO SCH (21:45)
[2022-04-07] MEDS: MONTELUKAST NA 10 MG TABLET PO SCH (21:45)
[2022-04-07] MEDS: ATORVASTATIN CA 10 MG TABLET (FP) PO SCH (21:45)
[2022-04-08] MEDS: PRENATAL VITAMINS W/ FOLIC ACID TABLET (FP) PO SCH (09:57)
[2022-04-08] MEDS: BUDESONIDE IH SCH ×2 (09:58→21:16)
[2022-04-08] MEDS: FORMETEROL FUMARATE IH SCH ×2 (09:58→21:16)
[2022-04-08] MEDS: PATIENT,S OWN MED:ALBUTEROL SO4 HFA INHALER IH PRN (09:58)
[2022-04-08] MEDS: ARTIFICIAL TEARS (POLYVINYL ALCOHOL) OPTH DROPS OU PRN ×2 (09:58→19:23)
[2022-04-08] MEDS: ASPIRIN 81 MG CHEWABLE TABLETS PO SCH (09:59)
[2022-04-08] MEDS: ESCITALOPRAM OXALATE 10 MG TABLET PO SCH (09:59)
[2022-04-08] MEDS: LISINOPRIL 5 MG TABLET PO SCH (09:59)
[2022-04-08] MEDS: PANTOPRAZOLE 40 MG TABLET PO SCH (09:59)
[2022-04-08] MEDS: MONTELUKAST NA 10 MG TABLET PO SCH (21:16)
[2022-04-08] MEDS: MELATONIN 5 MG TABLETS PO SCH (21:16)
[2022-04-08] MEDS: THIAMINE HCL 100 MG TABLET (FP) PO SCH (21:16)
[2022-04-08] MEDS: QUEtiapine FUMARATE 200 MG TABLET PO SCH (21:16)
[2022-04-08] MEDS: ATORVASTATIN CA 10 MG TABLET (FP) PO SCH (21:16)
[2022-04-08] MEDS: METHOCARBAMOL 500 MG TABLET PO PRN (21:16)
[2022-04-08] MEDS: MAG HYDROX/AL HYDROX/SIMETH 30 ML UNIT-DOSE CUP PO PRN (22:14)
[2022-04-09] MEDS: ARTIFICIAL TEARS (POLYVINYL ALCOHOL) OPTH DROPS OU PRN ×2 (06:31→21:38)
[2022-04-09] MEDS: PRENATAL VITAMINS W/ FOLIC ACID TABLET (FP) PO SCH (09:43)
[2022-04-09] MEDS: BUDESONIDE IH SCH ×2 (09:44→21:38)
[2022-04-09] MEDS: FORMETEROL FUMARATE IH SCH ×2 (09:44→21:38)
[2022-04-09] MEDS: PANTOPRAZOLE 40 MG TABLET PO SCH (09:45)
[2022-04-09] MEDS: ASPIRIN 81 MG CHEWABLE TABLETS PO SCH (09:45)
[2022-04-09] MEDS: LISINOPRIL 5 MG TABLET PO SCH (09:45)
[2022-04-09] MEDS: PATIENT,S OWN MED:ALBUTEROL SO4 HFA INHALER IH PRN (09:45)
[2022-04-09] MEDS: ESCITALOPRAM OXALATE 10 MG TABLET PO SCH (09:45)
[2022-04-09] MEDS: MONTELUKAST NA 10 MG TABLET PO SCH (21:36)
[2022-04-09] MEDS: QUEtiapine FUMARATE 200 MG TABLET PO SCH (21:36)
[2022-04-09] MEDS: THIAMINE HCL 100 MG TABLET (FP) PO SCH (21:36)
[2022-04-09] MEDS: MELATONIN 5 MG TABLETS PO SCH (21:36)
[2022-04-09] MEDS: ATORVASTATIN CA 10 MG TABLET (FP) PO SCH (21:37)
[2022-04-09] MEDS: IBUPROFEN 400 MG TABLET (FP) PO PRN (21:37)
[2022-04-10] MEDS: ESCITALOPRAM OXALATE 10 MG TABLET PO SCH (10:40)
[2022-04-10] MEDS: ARTIFICIAL TEARS (POLYVINYL ALCOHOL) OPTH DROPS OU PRN (10:40)
[2022-04-10] MEDS: ASPIRIN 81 MG CHEWABLE TABLETS PO SCH (10:40)
[2022-04-10] MEDS: PRENATAL VITAMINS W/ FOLIC ACID TABLET (FP) PO SCH (10:40)
[2022-04-10] MEDS: FORMETEROL FUMARATE IH SCH ×2 (10:40→21:18)
[2022-04-10] MEDS: LISINOPRIL 5 MG TABLET PO SCH (10:40)
[2022-04-10] MEDS: BUDESONIDE IH SCH ×2 (10:40→21:18)
[2022-04-10] MEDS: PANTOPRAZOLE 40 MG TABLET PO SCH (10:40)
[2022-04-10] MEDS: METHOCARBAMOL 500 MG TABLET PO PRN ×2 (10:41→21:18)
[2022-04-10] MEDS: THIAMINE HCL 100 MG TABLET (FP) PO SCH (21:18)
[2022-04-10] MEDS: QUEtiapine FUMARATE 200 MG TABLET PO SCH (21:18)
[2022-04-10] MEDS: MELATONIN 5 MG TABLETS PO SCH (21:18)
[2022-04-10] MEDS: MONTELUKAST NA 10 MG TABLET PO SCH (21:18)
[2022-04-10] MEDS: ATORVASTATIN CA 10 MG TABLET (FP) PO SCH (21:18)
[2022-04-11] MEDS: ARTIFICIAL TEARS (POLYVINYL ALCOHOL) OPTH DROPS OU PRN ×4 (06:20→21:20)
[2022-04-11] MEDS: MAG HYDROX/AL HYDROX/SIMETH 30 ML UNIT-DOSE CUP PO PRN ×2 (06:20→19:12)
[2022-04-11] MEDS: IBUPROFEN 400 MG TABLET (FP) PO PRN (09:11)
[2022-04-11] MEDS: FORMETEROL FUMARATE IH SCH ×2 (09:11→21:19)
[2022-04-11] MEDS: BUDESONIDE IH SCH ×2 (09:11→21:19)
[2022-04-11] MEDS: ASPIRIN 81 MG CHEWABLE TABLETS PO SCH (09:12)
[2022-04-11] MEDS: ESCITALOPRAM OXALATE 10 MG TABLET PO SCH (09:12)
[2022-04-11] MEDS: LISINOPRIL 5 MG TABLET PO SCH (09:12)
[2022-04-11] MEDS: PANTOPRAZOLE 40 MG TABLET PO SCH (09:12)
[2022-04-11] MEDS: PRENATAL VITAMINS W/ FOLIC ACID TABLET (FP) PO SCH (09:12)
[2022-04-11] MEDS: METHOCARBAMOL 500 MG TABLET PO PRN (21:19)
[2022-04-11] MEDS: THIAMINE HCL 100 MG TABLET (FP) PO SCH (21:19)
[2022-04-11] MEDS: MONTELUKAST NA 10 MG TABLET PO SCH (21:19)
[2022-04-11] MEDS: ATORVASTATIN CA 10 MG TABLET (FP) PO SCH (21:19)
[2022-04-11] MEDS: QUEtiapine FUMARATE 200 MG TABLET PO SCH (21:19)
[2022-04-11] MEDS: MELATONIN 5 MG TABLETS PO SCH (21:20)
[2022-04-12] MEDS: LISINOPRIL 5 MG TABLET PO SCH (10:11)
[2022-04-12] MEDS: ASPIRIN 81 MG CHEWABLE TABLETS PO SCH (10:11)
[2022-04-12] MEDS: PRENATAL VITAMINS W/ FOLIC ACID TABLET (FP) PO SCH (10:11)
[2022-04-12] MEDS: ESCITALOPRAM OXALATE 10 MG TABLET PO SCH (10:11)
[2022-04-12] MEDS: PANTOPRAZOLE 40 MG TABLET PO SCH (10:11)
[2022-04-12] MEDS: FORMETEROL FUMARATE IH SCH ×2 (10:12→21:46)
[2022-04-12] MEDS: BUDESONIDE IH SCH ×2 (10:12→21:46)
[2022-04-12] MEDS: ARTIFICIAL TEARS (POLYVINYL ALCOHOL) OPTH DROPS OU PRN ×2 (14:32→21:48)
[2022-04-12] MEDS: IBUPROFEN 400 MG TABLET (FP) PO PRN (14:35)
[2022-04-12] MEDS: QUEtiapine FUMARATE 200 MG TABLET PO SCH (21:44)
[2022-04-12] MEDS: THIAMINE HCL 100 MG TABLET (FP) PO SCH (21:44)
[2022-04-12] MEDS: ATORVASTATIN CA 10 MG TABLET (FP) PO SCH (21:45)
[2022-04-12] MEDS: MONTELUKAST NA 10 MG TABLET PO SCH (21:45)
[2022-04-12] MEDS: METHOCARBAMOL 500 MG TABLET PO PRN (21:45)
[2022-04-12] MEDS: MELATONIN 5 MG TABLETS PO SCH (21:46)
[2022-04-13] MEDS: MAG HYDROX/AL HYDROX/SIMETH 30 ML UNIT-DOSE CUP PO PRN (06:20)
[2022-04-13] MEDS: ARTIFICIAL TEARS (POLYVINYL ALCOHOL) OPTH DROPS OU PRN ×2 (06:21→09:44)
[2022-04-13] MEDS: PANTOPRAZOLE 40 MG TABLET PO SCH (09:43)
[2022-04-13] MEDS: ESCITALOPRAM OXALATE 10 MG TABLET PO SCH (09:43)
[2022-04-13] MEDS: ASPIRIN 81 MG CHEWABLE TABLETS PO SCH (09:43)
[2022-04-13] MEDS: PRENATAL VITAMINS W/ FOLIC ACID TABLET (FP) PO SCH (09:43)
[2022-04-13] MEDS: FORMETEROL FUMARATE IH SCH ×2 (09:43→21:21)
[2022-04-13] MEDS: BUDESONIDE IH SCH ×2 (09:43→21:21)
[2022-04-13] MEDS: LISINOPRIL 5 MG TABLET PO SCH (09:43)
[2022-04-13] MEDS: PATIENT,S OWN MED:ALBUTEROL SO4 HFA INHALER IH PRN (09:44)
[2022-04-13] MEDS: IBUPROFEN 400 MG TABLET (FP) PO PRN (12:56)
[2022-04-13] MEDS: QUEtiapine FUMARATE 200 MG TABLET PO SCH (21:20)
[2022-04-13] MEDS: THIAMINE HCL 100 MG TABLET (FP) PO SCH (21:21)
[2022-04-13] MEDS: ATORVASTATIN CA 10 MG TABLET (FP) PO SCH (21:21)
[2022-04-13] MEDS: MELATONIN 5 MG TABLETS PO SCH (21:21)
[2022-04-13] MEDS: MONTELUKAST NA 10 MG TABLET PO SCH (21:21)
[2022-04-14] MEDS: MAG HYDROX/AL HYDROX/SIMETH 30 ML UNIT-DOSE CUP PO PRN (01:21)
[2022-04-14] MEDS: ARTIFICIAL TEARS (POLYVINYL ALCOHOL) OPTH DROPS OU PRN ×2 (07:23→21:21)
[2022-04-14] MEDS: LISINOPRIL 5 MG TABLET PO SCH (10:14)
[2022-04-14] MEDS: ESCITALOPRAM OXALATE 10 MG TABLET PO SCH (10:14)
[2022-04-14] MEDS: ASPIRIN 81 MG CHEWABLE TABLETS PO SCH (10:14)
[2022-04-14] MEDS: PRENATAL VITAMINS W/ FOLIC ACID TABLET (FP) PO SCH (10:14)
[2022-04-14] MEDS: PANTOPRAZOLE 40 MG TABLET PO SCH (10:14)
[2022-04-14] MEDS: BUDESONIDE IH SCH ×2 (10:15→21:20)
[2022-04-14] MEDS: FORMETEROL FUMARATE IH SCH ×2 (10:15→21:20)
[2022-04-14] MEDS: PATIENT,S OWN MED:ALBUTEROL SO4 HFA INHALER IH PRN (10:15)
[2022-04-14] MEDS: IBUPROFEN 400 MG TABLET (FP) PO PRN (14:41)
[2022-04-14] MEDS: THIAMINE HCL 100 MG TABLET (FP) PO SCH (21:20)
[2022-04-14] MEDS: MELATONIN 5 MG TABLETS PO SCH (21:20)
[2022-04-14] MEDS: ATORVASTATIN CA 10 MG TABLET (FP) PO SCH (21:21)
[2022-04-14] MEDS: METHOCARBAMOL 500 MG TABLET PO PRN (21:21)
[2022-04-14] MEDS: QUEtiapine FUMARATE 200 MG TABLET PO SCH (21:21)
[2022-04-14] MEDS: MONTELUKAST NA 10 MG TABLET PO SCH (21:21)
[2022-04-15] MEDS: ARTIFICIAL TEARS (POLYVINYL ALCOHOL) OPTH DROPS OU PRN (06:23)
[2022-04-15] MEDS: MAG HYDROX/AL HYDROX/SIMETH 30 ML UNIT-DOSE CUP PO PRN (06:24)
[2022-04-15 06:34] VITALS: RESP 18; TEMP 98
[2022-04-15] MEDS: PRENATAL VITAMINS W/ FOLIC ACID TABLET (FP) PO SCH (09:03)
[2022-04-15] MEDS: BUDESONIDE IH SCH (09:03)
[2022-04-15] MEDS: FORMETEROL FUMARATE IH SCH (09:03)
[2022-04-15] MEDS: ASPIRIN 81 MG CHEWABLE TABLETS PO SCH (09:04)
[2022-04-15] MEDS: ESCITALOPRAM OXALATE 10 MG TABLET PO SCH (09:04)
[2022-04-15] MEDS: LISINOPRIL 5 MG TABLET PO SCH (09:04)
[2022-04-15] MEDS: PANTOPRAZOLE 40 MG TABLET PO SCH (09:04)
[2022-04-15 13:09] VITALS: BP 147/77; PULSE 84
== END 2022-04-15 09:37 | disposition home or self-care (01) | DRG 772 ==
LOC: YASAS 12:38 → Y3W 12:39
PROVIDERS: ADMIT Allergy & Immunology; ATTEND Psychiatry & Neurology Pain Medicine
PROC: HZ42ZZZ Group Counseling for Substance Abuse Treatment, Cognitive-Behavioral (ICD-10-PCS; principal; 2022-04-01)
DX: F11.20 Opioid dependence, uncomplicated (principal); F17.210 Nicotine dependence, cigarettes, uncomplicated; F19.282 Other psychoactive substance dependence with psychoactive substance-induced sleep disorder; F19.24 Other psychoactive substance dependence with psychoactive substance-induced mood disorder; F31.9 Bipolar disorder, unspecified; F41.9 Anxiety disorder, unspecified; F32.A Depression, unspecified; F43.10 Post-traumatic stress disorder, unspecified; G47.00 Insomnia, unspecified; I10 Essential (primary) hypertension; J44.9 Chronic obstructive pulmonary disease, unspecified; K21.9 Gastro-esophageal reflux disease without esophagitis; E11.9 Type 2 diabetes mellitus without complications; H91.92 Unspecified hearing loss, left ear; H54.7 Unspecified visual loss; M54.50 Low back pain, unspecified; G89.29 Other chronic pain; Z88.0 Allergy status to penicillin; Z88.8 Allergy status to other drugs, medicaments and biological substances; Z91.013 Allergy to seafood
CPT/HCPCS: 36415; 81003; 86803

== ENCOUNTER 2022-06-18 14:33 | Inpatient (IN) | payer OTHER ==
[2022-06-18 16:15] VITALS: BMI 20.9
[2022-06-18] MEDS ORDERED: POLYETHYLENE GLYCOL (HEALTHYLAX) 3350 17 GM PACKET PO PRN (18:07)
[2022-06-18] MEDS ORDERED: MAGNESIUM HYDROX 2400MG/30ML ORAL SUSPENSION 30 ML CUP PO PRN (18:07)
[2022-06-18] MEDS ORDERED: hydrOXYzine PAMOATE 25 MG CAPSULE (FP) PO PRN (18:07)
[2022-06-18] MEDS ORDERED: NALOXONE HCL (KLOXXADO) 8 MG SPRAY NS PRN (18:07)
[2022-06-18] MEDS ORDERED: IBUPROFEN 600 MG TABLET (FP) PO PRN (18:07)
[2022-06-18] MEDS ORDERED: BENZOCAINE/MENTHOL (CHLORASEPTIC ) LOZENGE MM PRN (18:07)
[2022-06-18] MEDS ORDERED: DICYCLOMINE HCL 10 MG CAPSULE PO PRN (18:07)
[2022-06-18] MEDS ORDERED: LOPERAMIDE HCL 2 MG CAPSULE PO PRN (18:07)
[2022-06-18] MEDS ORDERED: BISMUTH SUBSALICYLATE 524 MG/30 ML PO PRN (18:07)
[2022-06-18] MEDS ORDERED: NICOTINE 10 MG CARTRIDGE (INHALER) IH PRN (18:07)
[2022-06-18] MEDS ORDERED: IBUPROFEN 400 MG TABLET (FP) PO PRN (18:07)
[2022-06-18] MEDS ORDERED: ONDANSETRON *ODT* 4 MG TABLET SL PRN (18:07)
[2022-06-18] MEDS ORDERED: ACETAMINOPHEN 325 MG TABLET (FP) PO PRN ×2 (18:07)
[2022-06-18] MEDS ORDERED: cloNIDine HCL 0.1 MG TABLET PO PRN (18:07)
[2022-06-18] MEDS ORDERED: ALBUTEROL SO4 HFA INHALER IH PRN (18:11)
[2022-06-18] MEDS ORDERED: methaDONE HCL 10 MG TABLET (FOR DETOX USE ONLY) PO ONE (19:30)
[2022-06-18] MEDS: NICOTINE 14 MG/24 HOURS TOPICAL PATCH TD SCH (19:46)
[2022-06-18] MEDS: PRENATAL VITAMINS W/ FOLIC ACID TABLET (FP) PO SCH (19:46)
[2022-06-18] MEDS ORDERED: MELATONIN 5 MG TABLETS PO SCH (22:00)
[2022-06-18] MEDS: THIAMINE HCL 100 MG TABLET (FP) PO SCH (22:22)
[2022-06-18] MEDS: METHOCARBAMOL 500 MG TABLET PO PRN (22:23)
[2022-06-18] MEDS: BUDESONIDE/FORMETEROL FUMARATE 160/4.5 mcg INHALER IH SCH (22:23)
[2022-06-18] MEDS: ATORVASTATIN CA 10 MG TABLET (FP) PO SCH (22:24)
[2022-06-18] MEDS: MONTELUKAST NA 10 MG TABLET PO SCH (22:24)
[2022-06-19] MEDS: BUDESONIDE/FORMETEROL FUMARATE 160/4.5 mcg INHALER IH SCH ×2 (10:15→22:04)
[2022-06-19] MEDS: PANTOPRAZOLE 40 MG TABLET PO SCH (10:16)
[2022-06-19] MEDS: ESCITALOPRAM OXALATE 10 MG TABLET PO SCH (10:16)
[2022-06-19] MEDS: LISINOPRIL 5 MG TABLET PO SCH (10:16)
[2022-06-19] MEDS: METHOCARBAMOL 500 MG TABLET PO PRN (10:16)
[2022-06-19] MEDS: ASPIRIN 81 MG CHEWABLE TABLETS PO SCH (10:16)
[2022-06-19] MEDS: NICOTINE 14 MG/24 HOURS TOPICAL PATCH TD SCH (10:18)
[2022-06-19] MEDS: PRENATAL VITAMINS W/ FOLIC ACID TABLET (FP) PO SCH (10:18)
[2022-06-19] MEDS: MAG HYDROX/AL HYDROX/SIMETH 30 ML UNIT-DOSE CUP PO PRN (10:19)
[2022-06-19 11:48] LABS: HEMATOCRIT 36.4 % (35.4-49); HEMOGLOBIN 11.8 GM/dL (11.7-16.9); MCH 29.8 pg (25.7-33.7); MCHC 32.5 g/dl (32.0-35.9); MEAN CELL VOLUME 91.8 fl (80-96); MEAN PLT VOLUME 9.5 fl (7.5-11.1); PLATELET COUNT 181 10^3/uL (134-434); RBC 3.96 M/mm3 (4.00-5.60); RDW 14.3 % (11.9-15.9); WHITE BLOOD COUNT 6.4 K/mm3 (4.0-10.0)
[2022-06-19 12:15] LABS: CALCIUM 8.6 mg/dL (8.5-10.1)
[2022-06-19 12:16] LABS: BLOOD UREA NITROGEN 21.3 mg/dL (7-18)
[2022-06-19 12:18] LABS: CREATININE 0.8 mg/dL (0.55-1.3)
[2022-06-19 12:20] LABS: BILIRUBIN,TOTAL 0.3 mg/dL (0.2-1); TOT PROT 5.4 g/dl (6.4-8.2)
[2022-06-19] MEDS ORDERED: diazePAM 5 MG TABLET PO PRN (14:03)
[2022-06-19] MEDS: ARTIFICIAL TEARS (POLYVINYL ALCOHOL) OPTH DROPS OU SCH ×2 (15:25→22:04)
[2022-06-19] MEDS ORDERED: ARTIFICIAL TEARS (POLYVINYL ALCOHOL) OPTH DROPS OU SCH (22:00)
[2022-06-19] MEDS: MONTELUKAST NA 10 MG TABLET PO SCH (22:03)
[2022-06-19] MEDS: QUEtiapine FUMARATE 200 MG TABLET PO SCH (22:03)
[2022-06-19] MEDS: ATORVASTATIN CA 10 MG TABLET (FP) PO SCH (22:03)
[2022-06-19] MEDS: THIAMINE HCL 100 MG TABLET (FP) PO SCH (22:03)
[2022-06-20] MEDS: ARTIFICIAL TEARS (POLYVINYL ALCOHOL) OPTH DROPS OU SCH ×3 (05:46→22:12)
[2022-06-20] MEDS ORDERED: methaDONE HCL 10 MG TABLET (FOR DETOX USE ONLY) PO ONE (10:00)
[2022-06-20] MEDS: PRENATAL VITAMINS W/ FOLIC ACID TABLET (FP) PO SCH (10:27)
[2022-06-20] MEDS: ASPIRIN 81 MG CHEWABLE TABLETS PO SCH (10:28)
[2022-06-20] MEDS: ESCITALOPRAM OXALATE 10 MG TABLET PO SCH (10:28)
[2022-06-20] MEDS: PANTOPRAZOLE 40 MG TABLET PO SCH (10:28)
[2022-06-20] MEDS: METHOCARBAMOL 500 MG TABLET PO PRN (10:28)
[2022-06-20] MEDS: LISINOPRIL 5 MG TABLET PO SCH (10:28)
[2022-06-20] MEDS: BUDESONIDE/FORMETEROL FUMARATE 160/4.5 mcg INHALER IH SCH ×2 (10:30→22:12)
[2022-06-20] MEDS: NICOTINE 14 MG/24 HOURS TOPICAL PATCH TD SCH (11:38)
[2022-06-20] MEDS: ATORVASTATIN CA 10 MG TABLET (FP) PO SCH (22:10)
[2022-06-20] MEDS: THIAMINE HCL 100 MG TABLET (FP) PO SCH (22:10)
[2022-06-20] MEDS: MONTELUKAST NA 10 MG TABLET PO SCH (22:10)
[2022-06-20] MEDS: QUEtiapine FUMARATE 200 MG TABLET PO SCH (22:11)
[2022-06-21] MEDS: ARTIFICIAL TEARS (POLYVINYL ALCOHOL) OPTH DROPS OU SCH ×3 (06:26→22:14)
[2022-06-21] MEDS: NICOTINE 14 MG/24 HOURS TOPICAL PATCH TD SCH (10:32)
[2022-06-21] MEDS: BUDESONIDE/FORMETEROL FUMARATE 160/4.5 mcg INHALER IH SCH ×2 (10:33→22:14)
[2022-06-21] MEDS: ASPIRIN 81 MG CHEWABLE TABLETS PO SCH (10:33)
[2022-06-21] MEDS: PANTOPRAZOLE 40 MG TABLET PO SCH (10:33)
[2022-06-21] MEDS: PRENATAL VITAMINS W/ FOLIC ACID TABLET (FP) PO SCH (10:33)
[2022-06-21] MEDS: LISINOPRIL 5 MG TABLET PO SCH (10:33)
[2022-06-21] MEDS: METHOCARBAMOL 500 MG TABLET PO PRN (10:36)
[2022-06-21] MEDS: ESCITALOPRAM OXALATE 10 MG TABLET PO SCH (10:36)
[2022-06-21] MEDS: MAG HYDROX/AL HYDROX/SIMETH 30 ML UNIT-DOSE CUP PO PRN (15:22)
[2022-06-21] MEDS: THIAMINE HCL 100 MG TABLET (FP) PO SCH (22:14)
[2022-06-21] MEDS: QUEtiapine FUMARATE 200 MG TABLET PO SCH (22:14)
[2022-06-21] MEDS: ATORVASTATIN CA 10 MG TABLET (FP) PO SCH (22:14)
[2022-06-21] MEDS: MONTELUKAST NA 10 MG TABLET PO SCH (22:14)
[2022-06-22] MEDS: ARTIFICIAL TEARS (POLYVINYL ALCOHOL) OPTH DROPS OU SCH ×3 (06:27→22:10)
[2022-06-22] MEDS ORDERED: methaDONE HCL 10 MG TABLET (FOR DETOX USE ONLY) PO ONE (10:00)
[2022-06-22] MEDS: ASPIRIN 81 MG CHEWABLE TABLETS PO SCH (10:45)
[2022-06-22] MEDS: PANTOPRAZOLE 40 MG TABLET PO SCH (10:46)
[2022-06-22] MEDS: NICOTINE 14 MG/24 HOURS TOPICAL PATCH TD SCH (10:46)
[2022-06-22] MEDS: LISINOPRIL 5 MG TABLET PO SCH (10:46)
[2022-06-22] MEDS: BUDESONIDE/FORMETEROL FUMARATE 160/4.5 mcg INHALER IH SCH ×2 (10:46→22:08)
[2022-06-22] MEDS: ESCITALOPRAM OXALATE 10 MG TABLET PO SCH (10:46)
[2022-06-22] MEDS: PRENATAL VITAMINS W/ FOLIC ACID TABLET (FP) PO SCH (10:46)
[2022-06-22] MEDS: MAG HYDROX/AL HYDROX/SIMETH 30 ML UNIT-DOSE CUP PO PRN (17:55)
[2022-06-22] MEDS: ATORVASTATIN CA 10 MG TABLET (FP) PO SCH (22:09)
[2022-06-22] MEDS: MONTELUKAST NA 10 MG TABLET PO SCH (22:09)
[2022-06-22] MEDS: QUEtiapine FUMARATE 200 MG TABLET PO SCH (22:10)
[2022-06-22] MEDS: THIAMINE HCL 100 MG TABLET (FP) PO SCH (22:10)
[2022-06-23] MEDS: ARTIFICIAL TEARS (POLYVINYL ALCOHOL) OPTH DROPS OU SCH ×2 (05:23→14:24)
[2022-06-23] MEDS: ASPIRIN 81 MG CHEWABLE TABLETS PO SCH (10:39)
[2022-06-23] MEDS: PANTOPRAZOLE 40 MG TABLET PO SCH (10:39)
[2022-06-23] MEDS: LISINOPRIL 5 MG TABLET PO SCH (10:39)
[2022-06-23] MEDS: PRENATAL VITAMINS W/ FOLIC ACID TABLET (FP) PO SCH (10:40)
[2022-06-23] MEDS: BUDESONIDE/FORMETEROL FUMARATE 160/4.5 mcg INHALER IH SCH (10:40)
[2022-06-23] MEDS: ESCITALOPRAM OXALATE 10 MG TABLET PO SCH (10:40)
[2022-06-23] MEDS: NICOTINE 14 MG/24 HOURS TOPICAL PATCH TD SCH (10:41)
[2022-06-23 13:30] VITALS: BP 111/65; PULSE 61; RESP 16; TEMP 98
== END 2022-06-23 14:30 | disposition other institution (70) | DRG 773 ==
LOC: YASAS 14:33 → Y6N 18:30
PROVIDERS: ADMIT Allergy & Immunology; ATTEND Surgery
PROC: HZ2ZZZZ Detoxification Services for Substance Abuse Treatment (ICD-10-PCS; principal; 2022-06-18)
DX: F11.23 Opioid dependence with withdrawal (principal); F10.20 Alcohol dependence, uncomplicated; F17.210 Nicotine dependence, cigarettes, uncomplicated; F19.282 Other psychoactive substance dependence with psychoactive substance-induced sleep disorder; F19.24 Other psychoactive substance dependence with psychoactive substance-induced mood disorder; F25.1 Schizoaffective disorder, depressive type; F31.9 Bipolar disorder, unspecified; F43.10 Post-traumatic stress disorder, unspecified; I25.119 Atherosclerotic heart disease of native coronary artery with unspecified angina pectoris; I10 Essential (primary) hypertension; J43.1 Panlobular emphysema; J45.20 Mild intermittent asthma, uncomplicated; K21.9 Gastro-esophageal reflux disease without esophagitis; M17.0 Bilateral primary osteoarthritis of knee; M19.042 Primary osteoarthritis, left hand; M19.041 Primary osteoarthritis, right hand; M54.50 Low back pain, unspecified; G89.29 Other chronic pain; H91.92 Unspecified hearing loss, left ear; Z88.0 Allergy status to penicillin; Z88.8 Allergy status to other drugs, medicaments and biological substances; Z91.013 Allergy to seafood
CPT/HCPCS: 36415; 80053; 82962; 85027; 86780; C9803-CS; U0003; U0005

== ENCOUNTER 2022-06-23 14:39 | Inpatient (IN) | payer OTHER ==
[2022-06-23] MEDS ORDERED: guaiFENesin 200 MG/10 ML 10 ML UNIT-DOSE CUPS PO PRN (14:44)
[2022-06-23] MEDS ORDERED: MAGNESIUM HYDROX 2400MG/30ML ORAL SUSPENSION 30 ML CUP PO PRN (14:44)
[2022-06-23] MEDS ORDERED: NICOTINE 10 MG CARTRIDGE (INHALER) IH PRN (14:44)
[2022-06-23] MEDS ORDERED: LOPERAMIDE HCL 2 MG CAPSULE PO PRN (14:44)
[2022-06-23] MEDS ORDERED: P-EPHED 60MG/TRIPROLIDI 2.5MG TABLET PO PRN (14:44)
[2022-06-23] MEDS ORDERED: BENZOCAINE/MENTHOL (CHLORASEPTIC ) LOZENGE MM PRN (14:44)
[2022-06-23] MEDS ORDERED: NICOTINE POLACRILEX 2 MG GUM BUC PRN (14:44)
[2022-06-23] MEDS ORDERED: ACETAMINOPHEN 325 MG TABLET (FP) PO PRN (14:44)
[2022-06-23] MEDS ORDERED: POLYETHYLENE GLYCOL (HEALTHYLAX) 3350 17 GM PACKET PO PRN (14:44)
[2022-06-23] MEDS ORDERED: MAG HYDROX/AL HYDROX/SIMETH 30 ML UNIT-DOSE CUP PO PRN (14:44)
[2022-06-23] MEDS ORDERED: hydrOXYzine PAMOATE 25 MG CAPSULE (FP) PO PRN (14:44)
[2022-06-23] MEDS: THIAMINE HCL 100 MG TABLET (FP) PO SCH (21:41)
[2022-06-23] MEDS: ATORVASTATIN CA 10 MG TABLET (FP) PO SCH (21:41)
[2022-06-23] MEDS: QUEtiapine FUMARATE 200 MG TABLET PO SCH (21:41)
[2022-06-23] MEDS: MELATONIN 5 MG TABLETS PO SCH (21:41)
[2022-06-23] MEDS: BUDESONIDE/FORMETEROL FUMARATE 160/4.5 mcg INHALER IH SCH (21:42)
[2022-06-23] MEDS: MONTELUKAST NA 10 MG TABLET PO SCH (21:42)
[2022-06-24] MEDS: IBUPROFEN 400 MG TABLET (FP) PO PRN (02:07)
[2022-06-24] MEDS: ASPIRIN 81 MG CHEWABLE TABLETS PO SCH (09:23)
[2022-06-24] MEDS: LISINOPRIL 5 MG TABLET PO SCH (09:23)
[2022-06-24] MEDS: PRENATAL VITAMINS W/ FOLIC ACID TABLET (FP) PO SCH (09:23)
[2022-06-24] MEDS: ESCITALOPRAM OXALATE 10 MG TABLET PO SCH (09:23)
[2022-06-24] MEDS: NICOTINE 14 MG/24 HOURS TOPICAL PATCH TD SCH (09:23)
[2022-06-24] MEDS: FAMOTIDINE 20 MG TABLET PO SCH ×2 (09:23→21:20)
[2022-06-24] MEDS: BUDESONIDE/FORMETEROL FUMARATE 160/4.5 mcg INHALER IH SCH ×2 (09:24→21:20)
[2022-06-24] MEDS: QUEtiapine FUMARATE 200 MG TABLET PO SCH (21:20)
[2022-06-24] MEDS: MONTELUKAST NA 10 MG TABLET PO SCH (21:20)
[2022-06-24] MEDS: ATORVASTATIN CA 10 MG TABLET (FP) PO SCH (21:20)
[2022-06-24] MEDS: THIAMINE HCL 100 MG TABLET (FP) PO SCH (21:21)
[2022-06-24] MEDS: MELATONIN 5 MG TABLETS PO SCH (21:21)
[2022-06-24] MEDS: ARTIFICIAL TEARS (POLYVINYL ALCOHOL) OPTH DROPS OU PRN (21:22)
[2022-06-25] MEDS: ARTIFICIAL TEARS (POLYVINYL ALCOHOL) OPTH DROPS OU PRN ×3 (06:04→21:25)
[2022-06-25 06:41] VITALS: RESP 18
[2022-06-25] MEDS: PRENATAL VITAMINS W/ FOLIC ACID TABLET (FP) PO SCH (09:31)
[2022-06-25] MEDS: ESCITALOPRAM OXALATE 10 MG TABLET PO SCH (09:32)
[2022-06-25] MEDS: ASPIRIN 81 MG CHEWABLE TABLETS PO SCH (09:32)
[2022-06-25] MEDS: LISINOPRIL 5 MG TABLET PO SCH (09:32)
[2022-06-25] MEDS: ALBUTEROL SO4 HFA INHALER IH PRN (09:32)
[2022-06-25] MEDS: FAMOTIDINE 20 MG TABLET PO SCH ×2 (09:32→21:23)
[2022-06-25] MEDS: NICOTINE 14 MG/24 HOURS TOPICAL PATCH TD SCH (10:53)
[2022-06-25] MEDS: BUDESONIDE/FORMETEROL FUMARATE 160/4.5 mcg INHALER IH SCH ×2 (10:55→21:24)
[2022-06-25] MEDS: THIAMINE HCL 100 MG TABLET (FP) PO SCH (21:22)
[2022-06-25] MEDS: MELATONIN 5 MG TABLETS PO SCH (21:23)
[2022-06-25] MEDS: MONTELUKAST NA 10 MG TABLET PO SCH (21:23)
[2022-06-25] MEDS: ATORVASTATIN CA 10 MG TABLET (FP) PO SCH (21:23)
[2022-06-25] MEDS: QUEtiapine FUMARATE 200 MG TABLET PO SCH (21:23)
[2022-06-25] MEDS: cloNIDine HCL 0.1 MG TABLET PO SCH (21:23)
[2022-06-25] MEDS: IBUPROFEN 400 MG TABLET (FP) PO PRN (23:41)
[2022-06-26] MEDS: ARTIFICIAL TEARS (POLYVINYL ALCOHOL) OPTH DROPS OU PRN (06:42)
[2022-06-26 09:34] VITALS: BP 108/61; PULSE 67; TEMP 97.8
[2022-06-26] MEDS: ESCITALOPRAM OXALATE 10 MG TABLET PO SCH (09:52)
[2022-06-26] MEDS: FAMOTIDINE 20 MG TABLET PO SCH (09:52)
[2022-06-26] MEDS: ASPIRIN 81 MG CHEWABLE TABLETS PO SCH (09:52)
[2022-06-26] MEDS: PRENATAL VITAMINS W/ FOLIC ACID TABLET (FP) PO SCH (09:53)
[2022-06-26] MEDS: cloNIDine HCL 0.1 MG TABLET PO SCH (09:53)
[2022-06-26] MEDS: LISINOPRIL 5 MG TABLET PO SCH (09:53)
[2022-06-26] MEDS: NICOTINE 14 MG/24 HOURS TOPICAL PATCH TD SCH (09:53)
[2022-06-26] MEDS: BUDESONIDE/FORMETEROL FUMARATE 160/4.5 mcg INHALER IH SCH (09:53)
[2022-06-26] MEDS: ALBUTEROL SO4 HFA INHALER IH PRN (09:55)
[2022-06-27] MEDS ORDERED: BUPRENORPHINE/NALOXONE 2 MG/0.5 MG FILM PACKET SL SCH (10:00)
== END 2022-06-26 14:16 | disposition left against medical advice (07) | DRG 770 ==
LOC: YASAS 14:39 → Y3W 14:40
PROVIDERS: ADMIT Allergy & Immunology; ATTEND Psychiatry & Neurology Pain Medicine
PROC: HZ42ZZZ Group Counseling for Substance Abuse Treatment, Cognitive-Behavioral (ICD-10-PCS; principal; 2022-06-23)
DX: F11.20 Opioid dependence, uncomplicated (principal); F17.210 Nicotine dependence, cigarettes, uncomplicated; F25.1 Schizoaffective disorder, depressive type; F41.8 Other specified anxiety disorders; F32.A Depression, unspecified; E78.5 Hyperlipidemia, unspecified; I10 Essential (primary) hypertension; J43.1 Panlobular emphysema; J45.20 Mild intermittent asthma, uncomplicated; K21.9 Gastro-esophageal reflux disease without esophagitis; M54.50 Low back pain, unspecified; G89.29 Other chronic pain; Z88.0 Allergy status to penicillin; Z88.8 Allergy status to other drugs, medicaments and biological substances; Z91.013 Allergy to seafood
CPT/HCPCS: 82962

== ENCOUNTER 2022-10-14 19:28 | Inpatient (IN) | payer OTHER ==
[2022-10-14 19:56] VITALS: BMI 20.6
[2022-10-14] MEDS ORDERED: LOPERAMIDE HCL 2 MG CAPSULE PO PRN (20:23)
[2022-10-14] MEDS ORDERED: IBUPROFEN 400 MG TABLET (FP) PO PRN (20:23)
[2022-10-14] MEDS ORDERED: guaiFENesin 600 MG TABLET.ER (FP) PO PRN (20:23)
[2022-10-14] MEDS ORDERED: IBUPROFEN 600 MG TABLET (FP) PO PRN (20:23)
[2022-10-14] MEDS ORDERED: cloNIDine HCL 0.1 MG TABLET PO PRN (20:23)
[2022-10-14] MEDS ORDERED: NICOTINE POLACRILEX 2 MG GUM BUC PRN (20:23)
[2022-10-14] MEDS ORDERED: BENZOCAINE/MENTHOL (CHLORASEPTIC ) LOZENGE MM PRN (20:23)
[2022-10-14] MEDS ORDERED: BISMUTH SUBSALICYLATE 524 MG/30 ML PO PRN (20:23)
[2022-10-14] MEDS ORDERED: DICYCLOMINE HCL 10 MG CAPSULE PO PRN (20:23)
[2022-10-14] MEDS ORDERED: BENZONATATE 200 MG CAPSULE PO PRN (20:23)
[2022-10-14] MEDS ORDERED: NALOXONE HCL (KLOXXADO) 8 MG SPRAY NS PRN (20:23)
[2022-10-14] MEDS ORDERED: ONDANSETRON *ODT* 4 MG TABLET SL PRN (20:23)
[2022-10-14] MEDS ORDERED: MAGNESIUM HYDROX 2400MG/30ML ORAL SUSPENSION 30 ML CUP PO PRN (20:23)
[2022-10-14] MEDS ORDERED: NALOXONE HCL 0.4 MG/ML VIAL IM PRN (20:23)
[2022-10-14] MEDS ORDERED: methaDONE HCL 10 MG TABLET (FOR DETOX USE ONLY) PO ONE (20:23)
[2022-10-14] MEDS ORDERED: POLYETHYLENE GLYCOL (HEALTHYLAX) 3350 17 GM PACKET PO PRN (20:23)
[2022-10-15] MEDS: METHOCARBAMOL 500 MG TABLET PO PRN ×3 (03:15→22:20)
[2022-10-15] MEDS: MELATONIN 5 MG TABLETS PO SCH ×2 (09:06→22:18)
[2022-10-15] MEDS: THIAMINE HCL 100 MG TABLET (FP) PO SCH ×2 (09:06→22:18)
[2022-10-15] MEDS: PRENATAL VITAMINS W/ FOLIC ACID TABLET (FP) PO SCH (10:07)
[2022-10-15] MEDS: NICOTINE 14 MG/24 HOURS TOPICAL PATCH TD SCH (10:09)
[2022-10-15 10:48] LABS: HEMATOCRIT 36.1 % (35.4-49); HEMOGLOBIN 11.9 GM/dL (11.7-16.9); MCH 29.4 pg (25.7-33.7); MCHC 32.8 g/dl (32.0-35.9); MEAN CELL VOLUME 89.6 fl (80-96); PLATELET COUNT 228 10^3/uL (134-434); RBC 4.03 M/mm3 (4.00-5.60); RDW 14.1 % (11.9-15.9); WHITE BLOOD COUNT 8.2 K/mm3 (4.0-10.0)
[2022-10-15 10:53] LABS: POTASSIUM 4.1 mmol/L (3.5-5.1)
[2022-10-15 10:55] LABS: CALCIUM 8.8 mg/dL (8.5-10.1)
[2022-10-15 10:56] LABS: ALBUMIN 3.4 g/dl (3.4-5.0); BLOOD UREA NITROGEN 18.6 mg/dL (7-18)
[2022-10-15 10:58] LABS: CREATININE 0.9 mg/dL (0.55-1.3)
[2022-10-15 10:59] LABS: BILIRUBIN,TOTAL 0.2 mg/dL (0.2-1)
[2022-10-15] MEDS ORDERED: ARTIFICIAL TEARS (POLYVINYL ALCOHOL) OPTH DROPS OD SCH (13:00)
[2022-10-15] MEDS: ASPIRIN COATED 81 MG TABLET.EC PO SCH (13:32)
[2022-10-15] MEDS: LISINOPRIL 5 MG TABLET PO SCH (13:32)
[2022-10-15] MEDS: BUDESONIDE/FORMETEROL FUMARATE 160/4.5 mcg INHALER IH SCH ×2 (13:32→22:18)
[2022-10-15] MEDS: ATORVASTATIN CA 10 MG TABLET (FP) PO SCH (13:32)
[2022-10-15] MEDS: ARTIFICIAL TEARS (POLYVINYL ALCOHOL) OPTH DROPS OU PRN (20:30)
[2022-10-15] MEDS: MONTELUKAST NA 10 MG TABLET PO SCH (22:18)
[2022-10-15] MEDS: QUEtiapine FUMARATE 100 MG TABLET (FP) PO SCH (22:18)
[2022-10-15] MEDS: ACETAMINOPHEN 325 MG TABLET (FP) PO PRN (22:19)
[2022-10-16] MEDS: MAG HYDROX/AL HYDROX/SIMETH 30 ML UNIT-DOSE CUP PO PRN ×2 (06:31→22:28)
[2022-10-16] MEDS: PRENATAL VITAMINS W/ FOLIC ACID TABLET (FP) PO SCH (09:37)
[2022-10-16] MEDS: ASPIRIN COATED 81 MG TABLET.EC PO SCH (09:37)
[2022-10-16] MEDS: BUDESONIDE/FORMETEROL FUMARATE 160/4.5 mcg INHALER IH SCH ×2 (09:37→22:30)
[2022-10-16] MEDS: LISINOPRIL 5 MG TABLET PO SCH (09:37)
[2022-10-16] MEDS: ESCITALOPRAM OXALATE 10 MG TABLET PO SCH (09:37)
[2022-10-16] MEDS: NICOTINE 14 MG/24 HOURS TOPICAL PATCH TD SCH (09:38)
[2022-10-16] MEDS: ATORVASTATIN CA 10 MG TABLET (FP) PO SCH (09:40)
[2022-10-16] MEDS: ARTIFICIAL TEARS (POLYVINYL ALCOHOL) OPTH DROPS OU PRN ×2 (09:41→22:28)
[2022-10-16] MEDS ORDERED: methaDONE HCL 10 MG TABLET (FOR DETOX USE ONLY) PO ONE (10:00)
[2022-10-16] MEDS: QUEtiapine FUMARATE 100 MG TABLET (FP) PO SCH (22:27)
[2022-10-16] MEDS: THIAMINE HCL 100 MG TABLET (FP) PO SCH (22:27)
[2022-10-16] MEDS: MELATONIN 5 MG TABLETS PO SCH (22:29)
[2022-10-16] MEDS: MONTELUKAST NA 10 MG TABLET PO SCH (22:29)
[2022-10-17] MEDS: ACETAMINOPHEN 325 MG TABLET (FP) PO PRN (00:14)
[2022-10-17] MEDS: QUEtiapine FUMARATE 100 MG TABLET (FP) PO SCH ×2 (00:15→22:27)
[2022-10-17] MEDS: METHOCARBAMOL 500 MG TABLET PO PRN ×2 (00:15→10:40)
[2022-10-17] MEDS: MAG HYDROX/AL HYDROX/SIMETH 30 ML UNIT-DOSE CUP PO PRN (09:25)
[2022-10-17] MEDS: NICOTINE 14 MG/24 HOURS TOPICAL PATCH TD SCH (10:37)
[2022-10-17] MEDS: ATORVASTATIN CA 10 MG TABLET (FP) PO SCH (10:37)
[2022-10-17] MEDS: ASPIRIN COATED 81 MG TABLET.EC PO SCH (10:37)
[2022-10-17] MEDS: PRENATAL VITAMINS W/ FOLIC ACID TABLET (FP) PO SCH (10:37)
[2022-10-17] MEDS: ESCITALOPRAM OXALATE 10 MG TABLET PO SCH (10:37)
[2022-10-17] MEDS: LISINOPRIL 5 MG TABLET PO SCH (10:37)
[2022-10-17] MEDS: ALBUTEROL SO4 HFA INHALER IH PRN ×2 (10:40→22:26)
[2022-10-17] MEDS: BUDESONIDE/FORMETEROL FUMARATE 160/4.5 mcg INHALER IH SCH ×2 (10:41→22:26)
[2022-10-17] MEDS: ARTIFICIAL TEARS (POLYVINYL ALCOHOL) OPTH DROPS OU PRN ×2 (10:55→22:26)
[2022-10-17] MEDS: MELATONIN 5 MG TABLETS PO SCH (22:26)
[2022-10-17] MEDS: THIAMINE HCL 100 MG TABLET (FP) PO SCH (22:27)
[2022-10-17] MEDS: MONTELUKAST NA 10 MG TABLET PO SCH (22:27)
[2022-10-18] MEDS ORDERED: methaDONE HCL 10 MG TABLET (FOR DETOX USE ONLY) PO ONE (10:00)
[2022-10-18] MEDS: METHOCARBAMOL 500 MG TABLET PO PRN (10:21)
[2022-10-18] MEDS: ATORVASTATIN CA 10 MG TABLET (FP) PO SCH (10:21)
[2022-10-18] MEDS: ASPIRIN COATED 81 MG TABLET.EC PO SCH (10:21)
[2022-10-18] MEDS: ESCITALOPRAM OXALATE 10 MG TABLET PO SCH (10:21)
[2022-10-18] MEDS: LISINOPRIL 5 MG TABLET PO SCH (10:21)
[2022-10-18] MEDS: BUDESONIDE/FORMETEROL FUMARATE 160/4.5 mcg INHALER IH SCH ×2 (10:22→21:27)
[2022-10-18] MEDS: NICOTINE 14 MG/24 HOURS TOPICAL PATCH TD SCH (10:22)
[2022-10-18] MEDS: PRENATAL VITAMINS W/ FOLIC ACID TABLET (FP) PO SCH (10:22)
[2022-10-18] MEDS: METHYL SALICYLATE/MENTHOL OINT 30 GM TUBE TP SCH ×2 (13:34→21:29)
[2022-10-18] MEDS: MONTELUKAST NA 10 MG TABLET PO SCH (21:26)
[2022-10-18] MEDS: MELATONIN 5 MG TABLETS PO SCH (21:26)
[2022-10-18] MEDS: QUEtiapine FUMARATE 100 MG TABLET (FP) PO SCH (21:26)
[2022-10-18] MEDS: THIAMINE HCL 100 MG TABLET (FP) PO SCH (21:26)
[2022-10-18] MEDS: ARTIFICIAL TEARS (POLYVINYL ALCOHOL) OPTH DROPS OU PRN (21:28)
[2022-10-19] MEDS: METHOCARBAMOL 500 MG TABLET PO PRN ×2 (00:17→14:07)
[2022-10-19] MEDS: ACETAMINOPHEN 325 MG TABLET (FP) PO PRN (00:17)
[2022-10-19] MEDS: NICOTINE 14 MG/24 HOURS TOPICAL PATCH TD SCH (10:33)
[2022-10-19] MEDS: LISINOPRIL 5 MG TABLET PO SCH (10:33)
[2022-10-19] MEDS: ASPIRIN COATED 81 MG TABLET.EC PO SCH (10:33)
[2022-10-19] MEDS: ESCITALOPRAM OXALATE 10 MG TABLET PO SCH (10:33)
[2022-10-19] MEDS: PRENATAL VITAMINS W/ FOLIC ACID TABLET (FP) PO SCH (10:33)
[2022-10-19] MEDS: ATORVASTATIN CA 10 MG TABLET (FP) PO SCH (10:33)
[2022-10-19] MEDS: METHYL SALICYLATE/MENTHOL OINT 30 GM TUBE TP SCH (10:34)
[2022-10-19] MEDS: BUDESONIDE/FORMETEROL FUMARATE 160/4.5 mcg INHALER IH SCH (10:34)
[2022-10-19] MEDS: ARTIFICIAL TEARS (POLYVINYL ALCOHOL) OPTH DROPS OU PRN (10:35)
[2022-10-19 13:02] VITALS: BP 121/67; PULSE 73; RESP 20; TEMP 97.8
== END 2022-10-19 15:08 | disposition other institution (70) | DRG 773 ==
LOC: YASAS 19:28 → Y3N 10-15 02:26
PROVIDERS: ADMIT Allergy & Immunology; ATTEND Allergy & Immunology
PROC: HZ2ZZZZ Detoxification Services for Substance Abuse Treatment (ICD-10-PCS; principal; 2022-10-15)
DX: F11.23 Opioid dependence with withdrawal (principal); F17.210 Nicotine dependence, cigarettes, uncomplicated; F25.1 Schizoaffective disorder, depressive type; F43.10 Post-traumatic stress disorder, unspecified; E78.5 Hyperlipidemia, unspecified; I10 Essential (primary) hypertension; K21.9 Gastro-esophageal reflux disease without esophagitis; J45.20 Mild intermittent asthma, uncomplicated; J44.9 Chronic obstructive pulmonary disease, unspecified; M54.50 Low back pain, unspecified; G89.29 Other chronic pain; Z87.828 Personal history of other (healed) physical injury and trauma; Z88.0 Allergy status to penicillin; Z88.8 Allergy status to other drugs, medicaments and biological substances; Z91.013 Allergy to seafood
CPT/HCPCS: 36415; 80053; 82962; 85027; 86780; 93005; 93010; C9803-CS; U0003; U0005

== ENCOUNTER 2022-10-19 14:03 | Inpatient (IN) | payer OTHER ==
[2022-10-19] MEDS ORDERED: IBUPROFEN 400 MG TABLET (FP) PO PRN (18:42)
[2022-10-19] MEDS ORDERED: COLLOIDAL OATMEAL 1 BAR EACH TP PRN (18:42)
[2022-10-19] MEDS ORDERED: NICOTINE 10 MG CARTRIDGE (INHALER) IH PRN (18:42)
[2022-10-19] MEDS ORDERED: hydrOXYzine PAMOATE 25 MG CAPSULE (FP) PO PRN (18:42)
[2022-10-19] MEDS ORDERED: AMMONIUM LACTATE 12% LOTION 225 GM BOTTLE TP PRN (18:42)
[2022-10-19] MEDS ORDERED: LOPERAMIDE HCL 2 MG CAPSULE PO PRN (18:42)
[2022-10-19] MEDS ORDERED: MAGNESIUM HYDROX 2400MG/30ML ORAL SUSPENSION 30 ML CUP PO PRN (18:42)
[2022-10-19] MEDS ORDERED: NALOXONE HCL 0.4 MG/ML VIAL IVPUSH PRN (18:42)
[2022-10-19] MEDS ORDERED: BENZONATATE 200 MG CAPSULE PO PRN (18:42)
[2022-10-19] MEDS ORDERED: NALOXONE HCL (KLOXXADO) 8 MG SPRAY NS PRN (18:42)
[2022-10-19] MEDS ORDERED: BENZOCAINE/MENTHOL (CHLORASEPTIC ) LOZENGE MM PRN (18:42)
[2022-10-19] MEDS ORDERED: guaiFENesin 600 MG TABLET.ER (FP) PO PRN (18:42)
[2022-10-19] MEDS ORDERED: POLYETHYLENE GLYCOL (HEALTHYLAX) 3350 17 GM PACKET PO PRN (18:42)
[2022-10-19] MEDS: BUDESONIDE/FORMETEROL FUMARATE 160/4.5 mcg INHALER IH SCH (21:35)
[2022-10-19] MEDS: QUEtiapine FUMARATE 100 MG TABLET (FP) PO SCH (21:36)
[2022-10-19] MEDS: MONTELUKAST NA 10 MG TABLET PO SCH (21:36)
[2022-10-19] MEDS: THIAMINE HCL 100 MG TABLET (FP) PO SCH (21:36)
[2022-10-19] MEDS: FAMOTIDINE 20 MG TABLET PO SCH (21:36)
[2022-10-19] MEDS: MELATONIN 5 MG TABLETS PO SCH (21:36)
[2022-10-19] MEDS: MAG HYDROX/AL HYDROX/SIMETH 30 ML UNIT-DOSE CUP PO PRN (23:00)
[2022-10-20] MEDS: METHOCARBAMOL 500 MG TABLET PO PRN ×2 (00:48→21:22)
[2022-10-20] MEDS: ACETAMINOPHEN 325 MG TABLET (FP) PO PRN (00:48)
[2022-10-20] MEDS: MAG HYDROX/AL HYDROX/SIMETH 30 ML UNIT-DOSE CUP PO PRN (06:42)
[2022-10-20] MEDS ORDERED: ESCITALOPRAM OXALATE 10 MG TABLET PO SCH (10:00)
[2022-10-20] MEDS: ESCITALOPRAM OXALATE 10 MG TABLET PO SCH (10:07)
[2022-10-20] MEDS: ARTIFICIAL TEARS (POLYVINYL ALCOHOL) OPTH DROPS OD SCH ×2 (10:07→21:24)
[2022-10-20] MEDS: FAMOTIDINE 20 MG TABLET PO SCH ×2 (10:07→21:23)
[2022-10-20] MEDS: PRENATAL VITAMINS W/ FOLIC ACID TABLET (FP) PO SCH (10:07)
[2022-10-20] MEDS: BUDESONIDE/FORMETEROL FUMARATE 160/4.5 mcg INHALER IH SCH ×2 (10:08→21:25)
[2022-10-20] MEDS: LISINOPRIL 5 MG TABLET PO SCH (10:08)
[2022-10-20] MEDS: ASPIRIN COATED 81 MG TABLET.EC PO SCH (10:08)
[2022-10-20] MEDS: THIAMINE HCL 100 MG TABLET (FP) PO SCH (21:22)
[2022-10-20] MEDS: MELATONIN 5 MG TABLETS PO SCH (21:23)
[2022-10-20] MEDS: QUEtiapine FUMARATE 100 MG TABLET (FP) PO SCH (21:23)
[2022-10-20] MEDS: ATORVASTATIN CA 10 MG TABLET (FP) PO SCH (21:23)
[2022-10-20] MEDS: MONTELUKAST NA 10 MG TABLET PO SCH (21:23)
[2022-10-21] MEDS: MAG HYDROX/AL HYDROX/SIMETH 30 ML UNIT-DOSE CUP PO PRN (06:13)
[2022-10-21] MEDS: BUDESONIDE/FORMETEROL FUMARATE 160/4.5 mcg INHALER IH SCH ×2 (09:42→21:31)
[2022-10-21] MEDS: PRENATAL VITAMINS W/ FOLIC ACID TABLET (FP) PO SCH (09:42)
[2022-10-21] MEDS: ESCITALOPRAM OXALATE 10 MG TABLET PO SCH (09:42)
[2022-10-21] MEDS: ARTIFICIAL TEARS (POLYVINYL ALCOHOL) OPTH DROPS OD SCH ×3 (09:42→18:40)
[2022-10-21] MEDS: LISINOPRIL 5 MG TABLET PO SCH (09:43)
[2022-10-21] MEDS: ASPIRIN COATED 81 MG TABLET.EC PO SCH (09:43)
[2022-10-21] MEDS: FAMOTIDINE 20 MG TABLET PO SCH ×2 (09:43→21:32)
[2022-10-21] MEDS: ALBUTEROL SO4 HFA INHALER IH PRN (09:44)
[2022-10-21] MEDS: METHOCARBAMOL 500 MG TABLET PO PRN (10:32)
[2022-10-21] MEDS: THIAMINE HCL 100 MG TABLET (FP) PO SCH (21:31)
[2022-10-21] MEDS: MELATONIN 5 MG TABLETS PO SCH (21:31)
[2022-10-21] MEDS: MONTELUKAST NA 10 MG TABLET PO SCH (21:32)
[2022-10-21] MEDS: QUEtiapine FUMARATE 100 MG TABLET (FP) PO SCH (21:32)
[2022-10-21] MEDS: ATORVASTATIN CA 10 MG TABLET (FP) PO SCH (21:32)
[2022-10-22] MEDS: ACETAMINOPHEN 325 MG TABLET (FP) PO PRN (01:16)
[2022-10-22] MEDS: ARTIFICIAL TEARS (POLYVINYL ALCOHOL) OPTH DROPS OD SCH ×2 (06:26→18:33)
[2022-10-22] MEDS: MAG HYDROX/AL HYDROX/SIMETH 30 ML UNIT-DOSE CUP PO PRN (06:28)
[2022-10-22] MEDS: PRENATAL VITAMINS W/ FOLIC ACID TABLET (FP) PO SCH (10:13)
[2022-10-22] MEDS: ASPIRIN COATED 81 MG TABLET.EC PO SCH (10:14)
[2022-10-22] MEDS: LISINOPRIL 5 MG TABLET PO SCH (10:14)
[2022-10-22] MEDS: FAMOTIDINE 20 MG TABLET PO SCH ×2 (10:14→21:03)
[2022-10-22] MEDS: ESCITALOPRAM OXALATE 10 MG TABLET PO SCH (10:14)
[2022-10-22] MEDS: METHOCARBAMOL 500 MG TABLET PO PRN ×2 (10:15→18:34)
[2022-10-22] MEDS: BUDESONIDE/FORMETEROL FUMARATE 160/4.5 mcg INHALER IH SCH ×2 (10:15→21:05)
[2022-10-22] MEDS: MELATONIN 5 MG TABLETS PO SCH (21:03)
[2022-10-22] MEDS: THIAMINE HCL 100 MG TABLET (FP) PO SCH (21:03)
[2022-10-22] MEDS: MONTELUKAST NA 10 MG TABLET PO SCH (21:03)
[2022-10-22] MEDS: ATORVASTATIN CA 10 MG TABLET (FP) PO SCH (21:04)
[2022-10-22] MEDS: QUEtiapine FUMARATE 200 MG TABLET PO SCH (21:04)
[2022-10-23] MEDS: ARTIFICIAL TEARS (POLYVINYL ALCOHOL) OPTH DROPS OD SCH ×2 (06:39→18:01)
[2022-10-23] MEDS: MAG HYDROX/AL HYDROX/SIMETH 30 ML UNIT-DOSE CUP PO PRN (06:40)
[2022-10-23] MEDS: ASPIRIN COATED 81 MG TABLET.EC PO SCH (09:54)
[2022-10-23] MEDS: PRENATAL VITAMINS W/ FOLIC ACID TABLET (FP) PO SCH (09:54)
[2022-10-23] MEDS: ESCITALOPRAM OXALATE 5 MG/5 ML PO SCH (09:54)
[2022-10-23] MEDS: BUDESONIDE/FORMETEROL FUMARATE 160/4.5 mcg INHALER IH SCH ×2 (09:54→21:18)
[2022-10-23] MEDS: LISINOPRIL 5 MG TABLET PO SCH (09:54)
[2022-10-23] MEDS: FAMOTIDINE 20 MG TABLET PO SCH ×2 (09:54→21:18)
[2022-10-23] MEDS: ALBUTEROL SO4 HFA INHALER IH PRN (09:55)
[2022-10-23] MEDS: METHOCARBAMOL 500 MG TABLET PO PRN ×2 (09:57→21:18)
[2022-10-23] MEDS: ATORVASTATIN CA 10 MG TABLET (FP) PO SCH (21:18)
[2022-10-23] MEDS: MONTELUKAST NA 10 MG TABLET PO SCH (21:18)
[2022-10-23] MEDS: MELATONIN 5 MG TABLETS PO SCH (21:18)
[2022-10-23] MEDS: QUEtiapine FUMARATE 200 MG TABLET PO SCH (21:18)
[2022-10-23] MEDS: ACETAMINOPHEN 325 MG TABLET (FP) PO PRN (21:19)
[2022-10-23] MEDS: THIAMINE HCL 100 MG TABLET (FP) PO SCH (21:19)
[2022-10-24] MEDS: MAG HYDROX/AL HYDROX/SIMETH 30 ML UNIT-DOSE CUP PO PRN (06:02)
[2022-10-24] MEDS: ARTIFICIAL TEARS (POLYVINYL ALCOHOL) OPTH DROPS OD SCH ×2 (06:04→18:32)
[2022-10-24] MEDS: PRENATAL VITAMINS W/ FOLIC ACID TABLET (FP) PO SCH (10:08)
[2022-10-24] MEDS: LISINOPRIL 5 MG TABLET PO SCH (10:09)
[2022-10-24] MEDS: ASPIRIN COATED 81 MG TABLET.EC PO SCH (10:09)
[2022-10-24] MEDS: ESCITALOPRAM OXALATE 5 MG/5 ML PO SCH (10:09)
[2022-10-24] MEDS: FAMOTIDINE 20 MG TABLET PO SCH ×2 (10:09→21:22)
[2022-10-24] MEDS: BUDESONIDE/FORMETEROL FUMARATE 160/4.5 mcg INHALER IH SCH ×2 (10:10→21:22)
[2022-10-24] MEDS: MELATONIN 5 MG TABLETS PO SCH (21:21)
[2022-10-24] MEDS: THIAMINE HCL 100 MG TABLET (FP) PO SCH (21:21)
[2022-10-24] MEDS: ATORVASTATIN CA 10 MG TABLET (FP) PO SCH (21:22)
[2022-10-24] MEDS: QUEtiapine FUMARATE 200 MG TABLET PO SCH (21:22)
[2022-10-24] MEDS: MONTELUKAST NA 10 MG TABLET PO SCH (21:22)
[2022-10-24] MEDS: METHOCARBAMOL 500 MG TABLET PO PRN (21:22)
[2022-10-25] MEDS: MAG HYDROX/AL HYDROX/SIMETH 30 ML UNIT-DOSE CUP PO PRN (06:16)
[2022-10-25] MEDS: ARTIFICIAL TEARS (POLYVINYL ALCOHOL) OPTH DROPS OD SCH ×2 (06:17→18:03)
[2022-10-25] MEDS: LISINOPRIL 5 MG TABLET PO SCH (09:38)
[2022-10-25] MEDS: ASPIRIN COATED 81 MG TABLET.EC PO SCH (09:38)
[2022-10-25] MEDS: FAMOTIDINE 20 MG TABLET PO SCH ×2 (09:38→21:19)
[2022-10-25] MEDS: ESCITALOPRAM OXALATE 5 MG/5 ML PO SCH (09:39)
[2022-10-25] MEDS: MULTIVIT-MINERALS ORAL LIQUID PO SCH (09:40)
[2022-10-25] MEDS: BUDESONIDE/FORMETEROL FUMARATE 160/4.5 mcg INHALER IH SCH ×2 (09:42→21:19)
[2022-10-25] MEDS: METHOCARBAMOL 500 MG TABLET PO PRN (14:46)
[2022-10-25] MEDS: ACETAMINOPHEN 325 MG TABLET (FP) PO PRN (14:46)
[2022-10-25] MEDS: ATORVASTATIN CA 10 MG TABLET (FP) PO SCH (21:19)
[2022-10-25] MEDS: THIAMINE HCL 100 MG TABLET (FP) PO SCH (21:19)
[2022-10-25] MEDS: MONTELUKAST NA 10 MG TABLET PO SCH (21:19)
[2022-10-25] MEDS: QUEtiapine FUMARATE 200 MG TABLET PO SCH (21:19)
[2022-10-25] MEDS: MELATONIN 5 MG TABLETS PO SCH (21:20)
[2022-10-26] MEDS: ARTIFICIAL TEARS (POLYVINYL ALCOHOL) OPTH DROPS OD SCH ×2 (06:56→18:55)
[2022-10-26] MEDS: MAG HYDROX/AL HYDROX/SIMETH 30 ML UNIT-DOSE CUP PO PRN (06:56)
[2022-10-26] MEDS: LISINOPRIL 5 MG TABLET PO SCH (10:27)
[2022-10-26] MEDS: ESCITALOPRAM OXALATE 5 MG/5 ML PO SCH (10:28)
[2022-10-26] MEDS: ASPIRIN COATED 81 MG TABLET.EC PO SCH (10:28)
[2022-10-26] MEDS: MULTIVIT-MINERALS ORAL LIQUID PO SCH (10:28)
[2022-10-26] MEDS: BUDESONIDE/FORMETEROL FUMARATE 160/4.5 mcg INHALER IH SCH ×2 (10:28→21:09)
[2022-10-26] MEDS: FAMOTIDINE 20 MG TABLET PO SCH ×2 (10:31→21:09)
[2022-10-26] MEDS: ACETAMINOPHEN 325 MG TABLET (FP) PO PRN (13:22)
[2022-10-26] MEDS: THIAMINE HCL 100 MG TABLET (FP) PO SCH (21:08)
[2022-10-26] MEDS: MELATONIN 5 MG TABLETS PO SCH (21:08)
[2022-10-26] MEDS: QUEtiapine FUMARATE 200 MG TABLET PO SCH (21:09)
[2022-10-26] MEDS: MONTELUKAST NA 10 MG TABLET PO SCH (21:09)
[2022-10-26] MEDS: ATORVASTATIN CA 10 MG TABLET (FP) PO SCH (21:09)
[2022-10-27] MEDS: ARTIFICIAL TEARS (POLYVINYL ALCOHOL) OPTH DROPS OD SCH ×2 (05:47→17:51)
[2022-10-27] MEDS: ACETAMINOPHEN 325 MG TABLET (FP) PO PRN ×3 (10:12→23:56)
[2022-10-27] MEDS: FAMOTIDINE 20 MG TABLET PO SCH ×2 (10:13→21:40)
[2022-10-27] MEDS: ESCITALOPRAM OXALATE 5 MG/5 ML PO SCH (10:13)
[2022-10-27] MEDS: LISINOPRIL 5 MG TABLET PO SCH (10:13)
[2022-10-27] MEDS: MULTIVIT-MINERALS ORAL LIQUID PO SCH (10:13)
[2022-10-27] MEDS: BUDESONIDE/FORMETEROL FUMARATE 160/4.5 mcg INHALER IH SCH ×2 (10:13→21:39)
[2022-10-27] MEDS: ASPIRIN COATED 81 MG TABLET.EC PO SCH (10:15)
[2022-10-27] MEDS: ALBUTEROL SO4 HFA INHALER IH PRN ×2 (10:17→21:40)
[2022-10-27] MEDS: THIAMINE HCL 100 MG TABLET (FP) PO SCH (21:39)
[2022-10-27] MEDS: QUEtiapine FUMARATE 200 MG TABLET PO SCH (21:40)
[2022-10-27] MEDS: ATORVASTATIN CA 10 MG TABLET (FP) PO SCH (21:40)
[2022-10-27] MEDS: MONTELUKAST NA 10 MG TABLET PO SCH (21:40)
[2022-10-27] MEDS: MELATONIN 5 MG TABLETS PO SCH (21:41)
[2022-10-28] MEDS: MAG HYDROX/AL HYDROX/SIMETH 30 ML UNIT-DOSE CUP PO PRN (06:17)
[2022-10-28] MEDS: ARTIFICIAL TEARS (POLYVINYL ALCOHOL) OPTH DROPS OD SCH ×2 (06:19→18:52)
[2022-10-28] MEDS: ESCITALOPRAM OXALATE 5 MG/5 ML PO SCH (10:42)
[2022-10-28] MEDS: LISINOPRIL 5 MG TABLET PO SCH (10:42)
[2022-10-28] MEDS: BUDESONIDE/FORMETEROL FUMARATE 160/4.5 mcg INHALER IH SCH ×2 (10:42→21:27)
[2022-10-28] MEDS: FAMOTIDINE 20 MG TABLET PO SCH ×2 (10:42→21:26)
[2022-10-28] MEDS: MULTIVIT-MINERALS ORAL LIQUID PO SCH (10:42)
[2022-10-28] MEDS: ASPIRIN COATED 81 MG TABLET.EC PO SCH (10:42)
[2022-10-28] MEDS: ALBUTEROL SO4 HFA INHALER IH PRN (10:43)
[2022-10-28] MEDS: ACETAMINOPHEN 325 MG TABLET (FP) PO PRN (10:49)
[2022-10-28] MEDS: THIAMINE HCL 100 MG TABLET (FP) PO SCH (21:26)
[2022-10-28] MEDS: MELATONIN 5 MG TABLETS PO SCH (21:26)
[2022-10-28] MEDS: MONTELUKAST NA 10 MG TABLET PO SCH (21:26)
[2022-10-28] MEDS: QUEtiapine FUMARATE 200 MG TABLET PO SCH (21:26)
[2022-10-28] MEDS: ATORVASTATIN CA 10 MG TABLET (FP) PO SCH (21:26)
[2022-10-29] MEDS: MAG HYDROX/AL HYDROX/SIMETH 30 ML UNIT-DOSE CUP PO PRN (06:09)
[2022-10-29] MEDS: ARTIFICIAL TEARS (POLYVINYL ALCOHOL) OPTH DROPS OD SCH ×2 (06:09→18:44)
[2022-10-29] MEDS: BUDESONIDE/FORMETEROL FUMARATE 160/4.5 mcg INHALER IH SCH ×2 (09:40→21:09)
[2022-10-29] MEDS: ALBUTEROL SO4 HFA INHALER IH PRN ×2 (09:40→21:09)
[2022-10-29] MEDS: MULTIVIT-MINERALS ORAL LIQUID PO SCH (09:40)
[2022-10-29] MEDS: ESCITALOPRAM OXALATE 5 MG/5 ML PO SCH (09:41)
[2022-10-29] MEDS: LISINOPRIL 5 MG TABLET PO SCH (09:42)
[2022-10-29] MEDS: ASPIRIN COATED 81 MG TABLET.EC PO SCH (09:42)
[2022-10-29] MEDS: FAMOTIDINE 20 MG TABLET PO SCH ×2 (09:42→21:08)
[2022-10-29] MEDS: ACETAMINOPHEN 325 MG TABLET (FP) PO PRN (09:42)
[2022-10-29] MEDS: QUEtiapine FUMARATE 200 MG TABLET PO SCH (21:08)
[2022-10-29] MEDS: ATORVASTATIN CA 10 MG TABLET (FP) PO SCH (21:08)
[2022-10-29] MEDS: MONTELUKAST NA 10 MG TABLET PO SCH (21:08)
[2022-10-29] MEDS: THIAMINE HCL 100 MG TABLET (FP) PO SCH (21:08)
[2022-10-29] MEDS: MELATONIN 5 MG TABLETS PO SCH (21:08)
[2022-10-29] MEDS: METHYL SALICYLATE/MENTHOL OINT 30 GM TUBE TP SCH (21:10)
[2022-10-29] MEDS: IBUPROFEN 600 MG TABLET (FP) PO PRN (22:27)
[2022-10-30] MEDS: ARTIFICIAL TEARS (POLYVINYL ALCOHOL) OPTH DROPS OD SCH ×2 (06:25→18:55)
[2022-10-30] MEDS: MAG HYDROX/AL HYDROX/SIMETH 30 ML UNIT-DOSE CUP PO PRN (06:26)
[2022-10-30] MEDS: METHYL SALICYLATE/MENTHOL OINT 30 GM TUBE TP SCH ×2 (10:13→21:29)
[2022-10-30] MEDS: FAMOTIDINE 20 MG TABLET PO SCH ×2 (10:14→21:27)
[2022-10-30] MEDS: LISINOPRIL 5 MG TABLET PO SCH (10:14)
[2022-10-30] MEDS: IBUPROFEN 600 MG TABLET (FP) PO PRN ×2 (10:14→21:28)
[2022-10-30] MEDS: ASPIRIN COATED 81 MG TABLET.EC PO SCH (10:14)
[2022-10-30] MEDS: ESCITALOPRAM OXALATE 5 MG/5 ML PO SCH (10:15)
[2022-10-30] MEDS: MULTIVIT-MINERALS ORAL LIQUID PO SCH (10:15)
[2022-10-30] MEDS: BUDESONIDE/FORMETEROL FUMARATE 160/4.5 mcg INHALER IH SCH ×2 (10:15→21:28)
[2022-10-30] MEDS: ALBUTEROL SO4 HFA INHALER IH PRN ×2 (10:16→21:29)
[2022-10-30] MEDS: ATORVASTATIN CA 10 MG TABLET (FP) PO SCH (21:27)
[2022-10-30] MEDS: MONTELUKAST NA 10 MG TABLET PO SCH (21:27)
[2022-10-30] MEDS: THIAMINE HCL 100 MG TABLET (FP) PO SCH (21:27)
[2022-10-30] MEDS: MELATONIN 5 MG TABLETS PO SCH (21:27)
[2022-10-30] MEDS: QUEtiapine FUMARATE 200 MG TABLET PO SCH (21:27)
[2022-10-31] MEDS: ARTIFICIAL TEARS (POLYVINYL ALCOHOL) OPTH DROPS OD SCH ×2 (06:17→18:50)
[2022-10-31] MEDS: ASPIRIN COATED 81 MG TABLET.EC PO SCH (09:59)
[2022-10-31] MEDS: LISINOPRIL 5 MG TABLET PO SCH (09:59)
[2022-10-31] MEDS: FAMOTIDINE 20 MG TABLET PO SCH ×2 (09:59→21:07)
[2022-10-31] MEDS: MULTIVIT-MINERALS ORAL LIQUID PO SCH (10:00)
[2022-10-31] MEDS: ESCITALOPRAM OXALATE 5 MG/5 ML PO SCH (10:01)
[2022-10-31] MEDS: BUDESONIDE/FORMETEROL FUMARATE 160/4.5 mcg INHALER IH SCH ×2 (10:02→21:07)
[2022-10-31] MEDS: METHYL SALICYLATE/MENTHOL OINT 30 GM TUBE TP SCH ×2 (10:02→21:08)
[2022-10-31] MEDS: IBUPROFEN 600 MG TABLET (FP) PO PRN (16:23)
[2022-10-31] MEDS: MONTELUKAST NA 10 MG TABLET PO SCH (21:07)
[2022-10-31] MEDS: MELATONIN 5 MG TABLETS PO SCH (21:07)
[2022-10-31] MEDS: QUEtiapine FUMARATE 200 MG TABLET PO SCH (21:07)
[2022-10-31] MEDS: ATORVASTATIN CA 10 MG TABLET (FP) PO SCH (21:07)
[2022-10-31] MEDS: THIAMINE HCL 100 MG TABLET (FP) PO SCH (21:08)
[2022-10-31] MEDS: ALBUTEROL SO4 HFA INHALER IH PRN (21:09)
[2022-11-01] MEDS: MAG HYDROX/AL HYDROX/SIMETH 30 ML UNIT-DOSE CUP PO PRN (06:31)
[2022-11-01] MEDS: ARTIFICIAL TEARS (POLYVINYL ALCOHOL) OPTH DROPS OD SCH (06:31)
[2022-11-01 07:23] VITALS: BP 134/94; PULSE 87; RESP 17; TEMP 98.4
[2022-11-01] MEDS: LISINOPRIL 5 MG TABLET PO SCH (09:38)
[2022-11-01] MEDS: ASPIRIN COATED 81 MG TABLET.EC PO SCH (09:38)
[2022-11-01] MEDS: FAMOTIDINE 20 MG TABLET PO SCH (09:38)
[2022-11-01] MEDS: METHYL SALICYLATE/MENTHOL OINT 30 GM TUBE TP SCH (09:38)
[2022-11-01] MEDS: MULTIVIT-MINERALS ORAL LIQUID PO SCH (09:39)
[2022-11-01] MEDS: BUDESONIDE/FORMETEROL FUMARATE 160/4.5 mcg INHALER IH SCH (09:39)
[2022-11-01] MEDS: ESCITALOPRAM OXALATE 5 MG/5 ML PO SCH (09:39)
[2022-11-01] MEDS: IBUPROFEN 600 MG TABLET (FP) PO PRN (09:41)
== END 2022-11-01 10:33 | disposition home or self-care (01) | DRG 772 ==
LOC: YASAS 14:03 → Y3W 14:04
PROVIDERS: ADMIT Allergy & Immunology; ATTEND Psychiatry & Neurology Pain Medicine
PROC: HZ42ZZZ Group Counseling for Substance Abuse Treatment, Cognitive-Behavioral (ICD-10-PCS; principal; 2022-10-19)
DX: F11.20 Opioid dependence, uncomplicated (principal); F17.210 Nicotine dependence, cigarettes, uncomplicated; F25.1 Schizoaffective disorder, depressive type; F41.9 Anxiety disorder, unspecified; F32.A Depression, unspecified; E78.00 Pure hypercholesterolemia, unspecified; I10 Essential (primary) hypertension; J43.1 Panlobular emphysema; J45.20 Mild intermittent asthma, uncomplicated; K21.9 Gastro-esophageal reflux disease without esophagitis; M15.9 Polyosteoarthritis, unspecified; M54.50 Low back pain, unspecified; G89.29 Other chronic pain; Z88.0 Allergy status to penicillin; Z88.8 Allergy status to other drugs, medicaments and biological substances
CPT/HCPCS: 36415; 86803; C9803-CS; U0003; U0005

== ENCOUNTER 2023-02-14 22:57 | Inpatient (IN) | payer OTHER ==
[2023-02-14 23:28] VITALS: BMI 16.7
[2023-02-14] MEDS ORDERED: ONDANSETRON *ODT* 4 MG TABLET SL PRN (23:49)
[2023-02-14] MEDS ORDERED: NALOXONE HCL (KLOXXADO) 8 MG SPRAY NS PRN (23:49)
[2023-02-14] MEDS ORDERED: IBUPROFEN 400 MG TABLET (FP) PO PRN (23:49)
[2023-02-14] MEDS ORDERED: BISMUTH SUBSALICYLATE 524 MG/30 ML PO PRN (23:49)
[2023-02-14] MEDS ORDERED: NALOXONE HCL 0.4 MG/ML VIAL IM PRN (23:49)
[2023-02-14] MEDS ORDERED: NICOTINE POLACRILEX 2 MG GUM BUC PRN (23:49)
[2023-02-14] MEDS ORDERED: MAGNESIUM HYDROX 2400MG/30ML ORAL SUSPENSION 30 ML CUP PO PRN (23:49)
[2023-02-14] MEDS ORDERED: ACETAMINOPHEN 325 MG TABLET (FP) PO PRN (23:49)
[2023-02-14] MEDS ORDERED: DICYCLOMINE HCL 10 MG CAPSULE PO PRN (23:49)
[2023-02-14] MEDS ORDERED: BENZONATATE 200 MG CAPSULE PO PRN (23:49)
[2023-02-14] MEDS ORDERED: POLYETHYLENE GLYCOL (HEALTHYLAX) 3350 17 GM PACKET PO PRN (23:49)
[2023-02-14] MEDS ORDERED: BENZOCAINE/MENTHOL (CHLORASEPTIC ) LOZENGE MM PRN (23:49)
[2023-02-14] MEDS ORDERED: LOPERAMIDE HCL 2 MG CAPSULE PO PRN (23:49)
[2023-02-14] MEDS ORDERED: guaiFENesin 600 MG TABLET.ER (FP) PO PRN (23:49)
[2023-02-15] MEDS: PRENATAL VITAMINS W/ FOLIC ACID TABLET (FP) PO SCH (10:01)
[2023-02-15] MEDS: NICOTINE 14 MG/24 HOURS TOPICAL PATCH TD SCH (10:02)
[2023-02-15] MEDS ORDERED: cloNIDine HCL 0.1 MG TABLET PO PRN (10:04)
[2023-02-15] MEDS ORDERED: methaDONE HCL 10 MG TABLET (FOR DETOX USE ONLY) PO ONE (10:04)
[2023-02-15] MEDS: METHOCARBAMOL 500 MG TABLET PO PRN (10:35)
[2023-02-15 10:44] LABS: ALBUMIN 4.1 g/dl (3.4-5.0); CALCIUM 9.3 mg/dL (8.5-10.1)
[2023-02-15 10:45] LABS: BLOOD UREA NITROGEN 20.6 mg/dL (7-18)
[2023-02-15 10:49] LABS: BILIRUBIN,TOTAL 0.2 mg/dL (0.2-1); TOT PROT 7.1 g/dl (6.4-8.2)
[2023-02-15 10:51] LABS: HEMATOCRIT 39.8 % (35.4-49); MCH 29.7 pg (25.7-33.7); MCHC 32.8 g/dl (32.0-35.9); MEAN CELL VOLUME 90.8 fl (80-96); MEAN PLT VOLUME 9.9 fl (7.5-11.1); PLATELET COUNT 269 10^3/uL (134-434); RBC 4.39 M/mm3 (4.00-5.60); RDW 14.2 % (11.9-15.9); WHITE BLOOD COUNT 10.3 K/mm3 (4.0-10.0)
[2023-02-15] MEDS: MAG HYDROX/AL HYDROX/SIMETH 30 ML UNIT-DOSE CUP PO PRN (11:11)
[2023-02-15] MEDS: THIAMINE HCL 100 MG TABLET (FP) PO SCH (22:35)
[2023-02-15] MEDS: QUEtiapine FUMARATE 100 MG TABLET (FP) PO SCH (22:35)
[2023-02-15] MEDS: MELATONIN 5 MG TABLETS PO SCH (22:36)
[2023-02-16] MEDS ORDERED: ALBUTEROL SO4 HFA INHALER IH PRN (09:31)
[2023-02-16] MEDS: PRENATAL VITAMINS W/ FOLIC ACID TABLET (FP) PO SCH (10:36)
[2023-02-16] MEDS: ESCITALOPRAM OXALATE 10 MG TABLET PO SCH (10:37)
[2023-02-16] MEDS: NICOTINE 14 MG/24 HOURS TOPICAL PATCH TD SCH (10:37)
[2023-02-16] MEDS: BUDESONIDE/FORMETEROL FUMARATE 160/4.5 mcg INHALER IH SCH ×2 (10:39→21:56)
[2023-02-16] MEDS: ASPIRIN COATED 81 MG TABLET.EC PO SCH (10:40)
[2023-02-16] MEDS: FAMOTIDINE 20 MG TABLET PO SCH ×2 (10:40→21:56)
[2023-02-16] MEDS: LISINOPRIL 5 MG TABLET PO SCH (10:40)
[2023-02-16] MEDS: METHOCARBAMOL 500 MG TABLET PO PRN (16:33)
[2023-02-16] MEDS: MELATONIN 5 MG TABLETS PO SCH (21:55)
[2023-02-16] MEDS: QUEtiapine FUMARATE 100 MG TABLET (FP) PO SCH (21:56)
[2023-02-16] MEDS: ATORVASTATIN CA 10 MG TABLET (FP) PO SCH (21:56)
[2023-02-16] MEDS: THIAMINE HCL 100 MG TABLET (FP) PO SCH (21:56)
[2023-02-16] MEDS: ARTIFICIAL TEARS (POLYVINYL ALCOHOL) OPTH DROPS OD SCH (21:56)
[2023-02-16] MEDS: MONTELUKAST NA 10 MG TABLET PO SCH (21:57)
[2023-02-17] MEDS: IBUPROFEN 600 MG TABLET (FP) PO PRN ×2 (01:07→22:55)
[2023-02-17] MEDS: MAG HYDROX/AL HYDROX/SIMETH 30 ML UNIT-DOSE CUP PO PRN (07:26)
[2023-02-17] MEDS ORDERED: methaDONE HCL 10 MG TABLET (FOR DETOX USE ONLY) PO ONE (10:00)
[2023-02-17] MEDS: FAMOTIDINE 20 MG TABLET PO SCH ×2 (10:04→22:15)
[2023-02-17] MEDS: PRENATAL VITAMINS W/ FOLIC ACID TABLET (FP) PO SCH (10:04)
[2023-02-17] MEDS: ESCITALOPRAM OXALATE 10 MG TABLET PO SCH (10:04)
[2023-02-17] MEDS: ASPIRIN COATED 81 MG TABLET.EC PO SCH (10:05)
[2023-02-17] MEDS: LISINOPRIL 5 MG TABLET PO SCH (10:05)
[2023-02-17] MEDS: METHOCARBAMOL 500 MG TABLET PO PRN (10:05)
[2023-02-17] MEDS: ARTIFICIAL TEARS (POLYVINYL ALCOHOL) OPTH DROPS OD SCH ×2 (10:06→22:15)
[2023-02-17] MEDS: NICOTINE 14 MG/24 HOURS TOPICAL PATCH TD SCH (10:06)
[2023-02-17] MEDS: BUDESONIDE/FORMETEROL FUMARATE 160/4.5 mcg INHALER IH SCH ×2 (10:06→22:15)
[2023-02-17] MEDS ORDERED: LISINOPRIL 5 MG TABLET PO ONE (15:18)
[2023-02-17] MEDS: MONTELUKAST NA 10 MG TABLET PO SCH (22:15)
[2023-02-17] MEDS: THIAMINE HCL 100 MG TABLET (FP) PO SCH (22:15)
[2023-02-17] MEDS: ATORVASTATIN CA 10 MG TABLET (FP) PO SCH (22:15)
[2023-02-17] MEDS: QUEtiapine FUMARATE 100 MG TABLET (FP) PO SCH (22:15)
[2023-02-17] MEDS: MELATONIN 5 MG TABLETS PO SCH (22:15)
[2023-02-18] MEDS: ASPIRIN COATED 81 MG TABLET.EC PO SCH (10:05)
[2023-02-18] MEDS: FAMOTIDINE 20 MG TABLET PO SCH ×2 (10:05→21:56)
[2023-02-18] MEDS: PRENATAL VITAMINS W/ FOLIC ACID TABLET (FP) PO SCH (10:06)
[2023-02-18] MEDS: LISINOPRIL 10 MG TABLET PO SCH (10:06)
[2023-02-18] MEDS: ESCITALOPRAM OXALATE 10 MG TABLET PO SCH (10:06)
[2023-02-18] MEDS: NICOTINE 14 MG/24 HOURS TOPICAL PATCH TD SCH (10:07)
[2023-02-18] MEDS: ARTIFICIAL TEARS (POLYVINYL ALCOHOL) OPTH DROPS OD SCH ×2 (10:07→21:56)
[2023-02-18] MEDS: BUDESONIDE/FORMETEROL FUMARATE 160/4.5 mcg INHALER IH SCH ×2 (10:10→21:57)
[2023-02-18] MEDS: METHOCARBAMOL 500 MG TABLET PO PRN ×2 (10:12→21:59)
[2023-02-18] MEDS: MELATONIN 5 MG TABLETS PO SCH (21:56)
[2023-02-18] MEDS: ATORVASTATIN CA 10 MG TABLET (FP) PO SCH (21:56)
[2023-02-18] MEDS: MONTELUKAST NA 10 MG TABLET PO SCH (21:56)
[2023-02-18] MEDS: THIAMINE HCL 100 MG TABLET (FP) PO SCH (21:56)
[2023-02-18] MEDS: QUEtiapine FUMARATE 200 MG TABLET PO SCH (21:59)
[2023-02-19] MEDS: MAG HYDROX/AL HYDROX/SIMETH 30 ML UNIT-DOSE CUP PO PRN (07:12)
[2023-02-19] MEDS ORDERED: methaDONE HCL 10 MG TABLET (FOR DETOX USE ONLY) PO ONE (10:00)
[2023-02-19] MEDS: NICOTINE 14 MG/24 HOURS TOPICAL PATCH TD SCH (10:31)
[2023-02-19] MEDS: ASPIRIN COATED 81 MG TABLET.EC PO SCH (10:42)
[2023-02-19] MEDS: PRENATAL VITAMINS W/ FOLIC ACID TABLET (FP) PO SCH (10:42)
[2023-02-19] MEDS: BUDESONIDE/FORMETEROL FUMARATE 160/4.5 mcg INHALER IH SCH ×2 (10:42→22:12)
[2023-02-19] MEDS: FAMOTIDINE 20 MG TABLET PO SCH ×2 (10:42→22:12)
[2023-02-19] MEDS: LISINOPRIL 10 MG TABLET PO SCH (10:42)
[2023-02-19] MEDS: ESCITALOPRAM OXALATE 10 MG TABLET PO SCH (10:42)
[2023-02-19] MEDS: ARTIFICIAL TEARS (POLYVINYL ALCOHOL) OPTH DROPS OD SCH ×2 (10:47→22:16)
[2023-02-19 11:24] LABS: BLOOD UREA NITROGEN 15.1 mg/dL (7-18)
[2023-02-19] MEDS: QUEtiapine FUMARATE 200 MG TABLET PO SCH (22:11)
[2023-02-19] MEDS: MONTELUKAST NA 10 MG TABLET PO SCH (22:11)
[2023-02-19] MEDS: ATORVASTATIN CA 10 MG TABLET (FP) PO SCH (22:11)
[2023-02-19] MEDS: THIAMINE HCL 100 MG TABLET (FP) PO SCH (22:12)
[2023-02-19] MEDS: MELATONIN 5 MG TABLETS PO SCH (22:12)
[2023-02-20] MEDS: IBUPROFEN 600 MG TABLET (FP) PO PRN (00:58)
[2023-02-20 06:41] VITALS: PULSE 80; RESP 18
[2023-02-20 10:06] VITALS: BP 153/98; TEMP 98.2
== END 2023-02-20 09:42 | disposition home or self-care (01) | DRG 773 ==
LOC: YASAS 22:57 → Y6N 23:50
PROVIDERS: ADMIT Allergy & Immunology; ATTEND Surgery
PROC: HZ2ZZZZ Detoxification Services for Substance Abuse Treatment (ICD-10-PCS; principal; 2023-02-14)
DX: F11.23 Opioid dependence with withdrawal (principal); F17.213 Nicotine dependence, cigarettes, with withdrawal; F25.1 Schizoaffective disorder, depressive type; F43.10 Post-traumatic stress disorder, unspecified; E78.00 Pure hypercholesterolemia, unspecified; J43.0 Unilateral pulmonary emphysema [MacLeod's syndrome]; J45.20 Mild intermittent asthma, uncomplicated; K21.9 Gastro-esophageal reflux disease without esophagitis; M17.0 Bilateral primary osteoarthritis of knee; Z87.828 Personal history of other (healed) physical injury and trauma; Z88.0 Allergy status to penicillin; Z88.8 Allergy status to other drugs, medicaments and biological substances
CPT/HCPCS: 36415; 80053; 80061; 84520; 85027; 86780; 87635

== ENCOUNTER 2024-04-09 22:52 | Inpatient (IN) | payer OTHER ==
[2024-04-09 22:57] VITALS: BMI 18.6
[2024-04-09] MEDS ORDERED: ALBUTEROL SO4 HFA INHALER IH PRN (23:22)
[2024-04-09] MEDS ORDERED: BENZOCAINE/MENTHOL (CHLORASEPTIC ) LOZENGE MM PRN (23:23)
[2024-04-09] MEDS ORDERED: POLYETHYLENE GLYCOL (HEALTHYLAX) 3350 17 GM PACKET PO PRN (23:23)
[2024-04-09] MEDS ORDERED: LOPERAMIDE HCL 2 MG CAPSULE PO PRN (23:23)
[2024-04-09] MEDS ORDERED: MAG HYDROX/AL HYDROX/SIMETH 30 ML UNIT-DOSE CUP PO PRN (23:23)
[2024-04-09] MEDS ORDERED: DICYCLOMINE HCL 10 MG CAPSULE PO PRN (23:23)
[2024-04-09] MEDS ORDERED: IBUPROFEN 400 MG TABLET (FP) PO PRN (23:23)
[2024-04-09] MEDS ORDERED: MAGNESIUM HYDROX 2400MG/30ML ORAL SUSPENSION 30 ML CUP PO PRN (23:23)
[2024-04-09] MEDS ORDERED: BENZONATATE 200 MG CAPSULE PO PRN (23:23)
[2024-04-09] MEDS ORDERED: guaiFENesin 600 MG TABLET.ER (FP) PO PRN (23:23)
[2024-04-09] MEDS ORDERED: ACETAMINOPHEN 325 MG TABLET (FP) PO PRN (23:23)
[2024-04-09] MEDS ORDERED: NALOXONE (NARCAN) HCL 4 MG/0.1 ML SPRAY NS PRN (23:23)
[2024-04-09] MEDS ORDERED: ONDANSETRON *ODT* 4 MG TABLET SL PRN (23:23)
[2024-04-09] MEDS ORDERED: NICOTINE POLACRILEX 2 MG LOZENGE BC PRN (23:23)
[2024-04-10] MEDS: IBUPROFEN 600 MG TABLET (FP) PO PRN (06:05)
[2024-04-10 09:27] LABS: CHLORIDE 107 mmol/L (98-107); POTASSIUM 3.9 mmol/L (3.5-5.1); SODIUM 139 mmol/L (136-145)
[2024-04-10 09:32] LABS: HEMATOCRIT 38.1 % (35.4-49); HEMOGLOBIN 12.3 GM/dL (11.7-16.9); MCH 29.3 pg (25.7-33.7); MCHC 32.2 g/dl (32.0-35.9); MEAN CELL VOLUME 90.9 fl (80-96); MEAN PLT VOLUME 9.2 fl (7.5-11.1); PLATELET COUNT 205 10^3/uL (134-434); RBC 4.19 M/mm3 (4.00-5.60); RDW 13.5 % (11.9-15.9); WHITE BLOOD COUNT 7.6 K/mm3 (4.0-10.0)
[2024-04-10 09:35] LABS: ALBUMIN 3.6 g/dl (3.4-5.0); CALCIUM 9.3 mg/dL (8.5-10.1)
[2024-04-10 09:36] LABS: ANION GAP 4 mmol/L (4-13); CO2 29 mmol/L (21-32); GLUCOSE,RANDOM 81 mg/dL (74-106); SGOT/AST 17 U/L (15-37); SGPT/ALT 19 U/L (13-61)
[2024-04-10 09:39] LABS: BILIRUBIN,TOTAL 0.4 mg/dL (0.2-1); CREATININE 0.9 mg/dL (0.55-1.3); TOT PROT 6.1 g/dl (6.4-8.2)
[2024-04-10 09:40] LABS: ALK PHOS 61 U/L (45-117)
[2024-04-10] MEDS: BISMUTH SUBSALICYLATE 524 MG/30 ML PO PRN (10:04)
[2024-04-10] MEDS: BUDESONIDE/FORMETEROL FUMARATE 160/4.5 mcg INHALER IH SCH (10:09)
[2024-04-10] MEDS: FAMOTIDINE 20 MG TABLET PO SCH (10:10)
[2024-04-10] MEDS: LISINOPRIL 10 MG TABLET PO SCH (10:10)
[2024-04-10] MEDS: NICOTINE 14 MG/24 HOURS TOPICAL PATCH TD SCH (10:10)
[2024-04-10] MEDS: PRENATAL VITAMINS W/ FOLIC ACID TABLET (FP) PO SCH (10:10)
[2024-04-10] MEDS: ASPIRIN 81 MG CHEWABLE TABLETS PO SCH (10:10)
[2024-04-10] MEDS: MELATONIN 5 MG TABLETS PO SCH (22:15)
[2024-04-10] MEDS: THIAMINE 100 MG TABLET PO SCH (22:16)
[2024-04-10] MEDS: ATORVASTATIN CA 10 MG TABLET (FP) PO SCH (22:16)
[2024-04-10] MEDS: QUEtiapine FUMARATE 50 MG TABLET PO SCH (22:16)
[2024-04-11] MEDS: LIDOCAINE 5% TOPICAL PATCH TP SCH (13:52)
[2024-04-11] MEDS: LIDOCAINE PATCH REMOVAL MC SCH (22:06)
[2024-04-12 08:57] VITALS: BP 121/84; PULSE 69; RESP 17; TEMP 97.6
[2024-04-12] MEDS: NALOXONE (NYS OPIOID OVERDOSE PROGRAM) 4 MG/0.1 ML SPRAY NS PRN (09:41)
== END 2024-04-12 10:17 | disposition home or self-care (01) | DRG 773 ==
LOC: YASAS 22:52 → Y6N 23:48
PROVIDERS: ADMIT Allergy & Immunology; ATTEND Surgery
PROC: HZ2ZZZZ Detoxification Services for Substance Abuse Treatment (ICD-10-PCS; principal; 2024-04-09)
DX: F10.230 Alcohol dependence with withdrawal, uncomplicated (principal); F11.20 Opioid dependence, uncomplicated; F17.210 Nicotine dependence, cigarettes, uncomplicated; F25.1 Schizoaffective disorder, depressive type; F41.9 Anxiety disorder, unspecified; F43.10 Post-traumatic stress disorder, unspecified; E78.5 Hyperlipidemia, unspecified; I10 Essential (primary) hypertension; J43.0 Unilateral pulmonary emphysema [MacLeod's syndrome]; J45.20 Mild intermittent asthma, uncomplicated; K21.9 Gastro-esophageal reflux disease without esophagitis; M15.9 Polyosteoarthritis, unspecified; M17.0 Bilateral primary osteoarthritis of knee; G89.29 Other chronic pain; Z88.0 Allergy status to penicillin
CPT/HCPCS: 36415; 80053; 80305; 80307; 85027; 86780; 93005; 93010

== ENCOUNTER 2024-05-24 13:04 | Inpatient (IN) | payer OTHER ==
[2024-05-24 13:26] VITALS: BMI 20.9
[2024-05-24] MEDS ORDERED: IBUPROFEN 400 MG TABLET (FP) PO PRN (13:40)
[2024-05-24] MEDS ORDERED: MAGNESIUM HYDROX 2400MG/30ML ORAL SUSPENSION 30 ML CUP PO PRN (13:40)
[2024-05-24] MEDS ORDERED: ONDANSETRON *ODT* 4 MG TABLET SL PRN (13:40)
[2024-05-24] MEDS ORDERED: BENZOCAINE/MENTHOL (CHLORASEPTIC ) LOZENGE MM PRN (13:40)
[2024-05-24] MEDS ORDERED: BISMUTH SUBSALICYLATE 524 MG/30 ML PO PRN (13:40)
[2024-05-24] MEDS ORDERED: DICYCLOMINE HCL 10 MG CAPSULE PO PRN (13:40)
[2024-05-24] MEDS ORDERED: MAG HYDROX/AL HYDROX/SIMETH 30 ML UNIT-DOSE CUP PO PRN (13:40)
[2024-05-24] MEDS ORDERED: POLYETHYLENE GLYCOL (HEALTHYLAX) 3350 17 GM PACKET PO PRN (13:40)
[2024-05-24] MEDS ORDERED: BENZONATATE 200 MG CAPSULE PO PRN (13:40)
[2024-05-24] MEDS ORDERED: ACETAMINOPHEN 325 MG TABLET (FP) PO PRN (13:40)
[2024-05-24] MEDS ORDERED: NICOTINE POLACRILEX 2 MG GUM BUC PRN (13:40)
[2024-05-24] MEDS ORDERED: NICOTINE POLACRILEX 2 MG LOZENGE BC PRN (13:40)
[2024-05-24] MEDS ORDERED: guaiFENesin 600 MG TABLET.ER (FP) PO PRN (13:40)
[2024-05-24] MEDS ORDERED: NALOXONE (NARCAN) HCL 4 MG/0.1 ML SPRAY NS PRN (13:40)
[2024-05-24] MEDS ORDERED: METHOCARBAMOL 500 MG TABLET PO PRN (13:40)
[2024-05-24] MEDS ORDERED: diazePAM 5 MG TABLET PO PRN (13:40)
[2024-05-24] MEDS ORDERED: LOPERAMIDE HCL 2 MG CAPSULE PO PRN (13:40)
[2024-05-24] MEDS ORDERED: hydrOXYzine PAMOATE 25 MG CAPSULE (FP) PO PRN (13:40)
[2024-05-24] MEDS ORDERED: BUPRENORPHINE HCL 150 MCG FILM BC ONE (14:25)
[2024-05-24] MEDS ORDERED: BUPRENORPHINE HCL 75 MCG FILM BC ONE (14:25)
[2024-05-24] MEDS ORDERED: LISINOPRIL 10 MG TABLET ONE (14:26)
[2024-05-24] MEDS ORDERED: cloNIDine HCL 0.1 MG TABLET ONE (14:26)
[2024-05-24] MEDS: BUPRENORPHINE HCL 150 MCG, BUPRENORPHINE HCL 75 MCG BC ONE (14:28)
[2024-05-24] MEDS: LISINOPRIL 10 MG TABLET PO SCH (14:30)
[2024-05-24] MEDS: cloNIDine HCL 0.1 MG TABLET PO ONE (14:30)
[2024-05-24] MEDS: BUDESONIDE/FORMETEROL FUMARATE 80/4.5 mcg INHALER IH SCH (14:38)
[2024-05-24] MEDS ORDERED: cloNIDine HCL 0.1 MG TABLET PO PRN (17:41)
[2024-05-24] MEDS: IBUPROFEN 600 MG TABLET (FP) PO PRN (18:01)
[2024-05-24] MEDS: MELATONIN 5 MG TABLETS PO SCH (22:21)
[2024-05-24] MEDS: QUEtiapine FUMARATE 100 MG TABLET (FP) PO SCH (22:21)
[2024-05-24] MEDS: THIAMINE 100 MG TABLET PO SCH (22:21)
[2024-05-24] MEDS: ATORVASTATIN CA 10 MG TABLET (FP) PO SCH (22:21)
[2024-05-24] MEDS: BUPRENORPHINE HCL 150 MCG, BUPRENORPHINE HCL 75 MCG BC PRN (22:22)
[2024-05-24] MEDS: FAMOTIDINE 20 MG TABLET PO SCH (22:24)
[2024-05-24] MEDS: ALBUTEROL SO4 HFA INHALER IH PRN (22:28)
[2024-05-25] MEDS ORDERED: BUPRENORPHINE HCL 150 MCG, BUPRENORPHINE HCL 75 MCG BC PRN
[2024-05-25] MEDS: BUPRENORPHINE HCL 150 MCG, BUPRENORPHINE HCL 75 MCG BC SCH (05:53)
[2024-05-25] MEDS: PRENATAL VITAMINS W/ FOLIC ACID TABLET (FP) PO SCH (10:28)
[2024-05-25] MEDS: MONTELUKAST NA 10 MG TABLET PO SCH (10:29)
[2024-05-25] MEDS: ASPIRIN 81 MG CHEWABLE TABLETS PO SCH (10:29)
[2024-05-25 15:45] LABS: CHLORIDE 111 mmol/L (98-107); POTASSIUM 4.1 mmol/L (3.5-5.1); SODIUM 145 mmol/L (136-145)
[2024-05-25 15:55] LABS: ALBUMIN 3.3 g/dl (3.4-5.0); ANION GAP 4 mmol/L (4-13); BLOOD UREA NITROGEN 20.6 mg/dL (7-18); CALCIUM 8.8 mg/dL (8.5-10.1); CO2 31 mmol/L (21-32); GLUCOSE,RANDOM 103 mg/dL (74-106)
[2024-05-25 15:57] LABS: CREATININE 0.9 mg/dL (0.55-1.3); SGOT/AST 25 U/L (15-37)
[2024-05-25 16:00] LABS: ALK PHOS 62 U/L (45-117); BILIRUBIN,TOTAL 0.5 mg/dL (0.2-1); TOT PROT 5.7 g/dl (6.4-8.2)
[2024-05-25 16:04] LABS: HEMATOCRIT 35.7 % (35.4-49); MCH 30.3 pg (25.7-33.7); MCHC 33.6 g/dl (32.0-35.9); MEAN CELL VOLUME 90.3 fl (80-96); MEAN PLT VOLUME 8.8 fl (7.5-11.1); PLATELET COUNT 250 10^3/uL (134-434); RBC 3.95 M/mm3 (4.00-5.60); RDW 14.7 % (11.9-15.9); WHITE BLOOD COUNT 6.5 K/mm3 (4.0-10.0)
[2024-05-25 16:13] LABS: SGPT/ALT 28 U/L (13-61)
[2024-05-26] MEDS: BUPRENORPHINE HCL 450 MCG FILM BC SCH (05:37)
[2024-05-27] MEDS: BUPRENORPHINE/NALOXONE 4 MG/1 MG FILM PACKET SL SCH (06:00)
[2024-05-27] MEDS: NALOXONE (NYS OPIOID OVERDOSE PROGRAM) 4 MG/0.1 ML SPRAY NS SCH (13:58)
[2024-05-28] MEDS: BUPRENORPHINE/NALOXONE 8 MG/2 MG FILM PACKET SL ONE (05:33)
[2024-05-28 09:34] VITALS: BP 115/72; PULSE 81; RESP 16; TEMP 97.8
== END 2024-05-28 12:39 | disposition other institution (70) | DRG 773 ==
LOC: YASAS 13:04 → Y6N 13:56
PROVIDERS: ADMIT Allergy & Immunology; ATTEND Surgery
PROC: HZ2ZZZZ Detoxification Services for Substance Abuse Treatment (ICD-10-PCS; principal; 2024-05-24)
DX: F11.23 Opioid dependence with withdrawal (principal); F10.230 Alcohol dependence with withdrawal, uncomplicated; F17.210 Nicotine dependence, cigarettes, uncomplicated; F41.9 Anxiety disorder, unspecified; F43.10 Post-traumatic stress disorder, unspecified; I10 Essential (primary) hypertension; E78.2 Mixed hyperlipidemia; J45.20 Mild intermittent asthma, uncomplicated; J43.0 Unilateral pulmonary emphysema [MacLeod's syndrome]; K21.9 Gastro-esophageal reflux disease without esophagitis; G47.00 Insomnia, unspecified; Z88.0 Allergy status to penicillin; Z91.013 Allergy to seafood; Z56.0 Unemployment, unspecified; Z59.00 Homelessness unspecified
CPT/HCPCS: 36415; 71045-TC-FY; 80053; 80305; 80307; 85027; 86780; 93005; 93010

== ENCOUNTER 2024-05-28 12:47 | Inpatient (IN) | payer OTHER ==
[2024-05-28] MEDS ORDERED: ALBUTEROL SO4 HFA INHALER IH PRN (15:14)
[2024-05-28] MEDS ORDERED: NICOTINE POLACRILEX 4 MG LOZENGE BC PRN (15:15)
[2024-05-28] MEDS ORDERED: LOPERAMIDE HCL 2 MG CAPSULE PO PRN (15:15)
[2024-05-28] MEDS ORDERED: POLYETHYLENE GLYCOL (HEALTHYLAX) 3350 17 GM PACKET PO PRN (15:15)
[2024-05-28] MEDS ORDERED: BENZONATATE 200 MG CAPSULE PO PRN (15:15)
[2024-05-28] MEDS ORDERED: NICOTINE POLACRILEX 4 MG GUM BUC PRN (15:15)
[2024-05-28] MEDS ORDERED: MAGNESIUM HYDROX 2400MG/30ML ORAL SUSPENSION 30 ML CUP PO PRN (15:15)
[2024-05-28] MEDS ORDERED: hydrOXYzine PAMOATE 25 MG CAPSULE (FP) PO PRN (15:15)
[2024-05-28] MEDS ORDERED: NALOXONE HCL 0.4 MG/ML VIAL IVPUSH PRN (15:15)
[2024-05-28] MEDS ORDERED: guaiFENesin 600 MG TABLET.ER (FP) PO PRN (15:15)
[2024-05-28] MEDS ORDERED: NALOXONE (NARCAN) HCL 4 MG/0.1 ML SPRAY NS PRN (15:15)
[2024-05-28] MEDS ORDERED: IBUPROFEN 400 MG TABLET (FP) PO PRN (15:15)
[2024-05-28] MEDS: ATORVASTATIN CA 10 MG TABLET (FP) PO SCH (21:59)
[2024-05-28] MEDS: MELATONIN 5 MG TABLETS PO SCH (21:59)
[2024-05-28] MEDS: BUDESONIDE/FORMETEROL FUMARATE 160/4.5 mcg INHALER IH SCH (21:59)
[2024-05-28] MEDS: FAMOTIDINE 20 MG TABLET PO SCH (21:59)
[2024-05-28] MEDS: QUEtiapine FUMARATE 100 MG TABLET (FP) PO SCH (21:59)
[2024-05-28] MEDS: THIAMINE 100 MG TABLET PO SCH (21:59)
[2024-05-28] MEDS ORDERED: BUPRENORPHINE/NALOXONE 8 MG/2 MG FILM PACKET SL SCH (22:00)
[2024-05-29] MEDS: MONTELUKAST NA 10 MG TABLET PO SCH (10:10)
[2024-05-29] MEDS: PRENATAL VITAMINS W/ FOLIC ACID TABLET (FP) PO SCH (10:10)
[2024-05-29] MEDS: NICOTINE 14 MG/24 HOURS TOPICAL PATCH TD SCH (10:10)
[2024-05-29] MEDS: ASPIRIN 81 MG CHEWABLE TABLETS PO SCH (10:10)
[2024-05-29] MEDS: LISINOPRIL 10 MG TABLET PO SCH (10:11)
[2024-05-29] MEDS: BUPRENORPHINE/NALOXONE 8 MG/2 MG FILM PACKET SL SCH (10:12)
[2024-05-29] MEDS: IBUPROFEN 600 MG TABLET (FP) PO PRN (22:03)
[2024-05-31] MEDS: MAG HYDROX/AL HYDROX/SIMETH 30 ML UNIT-DOSE CUP PO PRN (08:56)
[2024-05-31] MEDS ORDERED: BISMUTH SUBSALICYLATE 262 MG/15 ML BTL PO PRN (12:41)
[2024-05-31] MEDS: ACAMPROSATE CALCIUM 333 MG TABLET.DR PO SCH (13:24)
[2024-06-01] MEDS: METHOCARBAMOL 500 MG TABLET PO PRN (10:43)
[2024-06-02] MEDS ORDERED: SIMETHICONE 80 MG TAB.CHEW (FP) PO PRN (10:00)
[2024-06-02 13:49] LABS: BASO % 0.8 % (0-2.0); EOS % 3.3 % (0-4.5); HEMATOCRIT 37.1 % (35.4-49); HEMOGLOBIN 11.8 GM/dL (11.7-16.9); MCH 29.5 pg (25.7-33.7); MCHC 31.9 g/dl (32.0-35.9); MEAN CELL VOLUME 92.5 fl (80-96); MEAN PLT VOLUME 8.8 fl (7.5-11.1); MONO % 8.4 % (3.8-10.2); NEUT % 76.5 % (42.8-82.8); PLATELET COUNT 296 10^3/uL (134-434); RBC 4.01 M/mm3 (4.00-5.60); RDW 15.9 % (11.9-15.9); WHITE BLOOD COUNT 8.5 K/mm3 (4.0-10.0)
[2024-06-02 13:55] LABS: INR 0.91 (0.83-1.09); PROTHROMBIN TIME (PATIENT) 10.5 SEC (9.7-13.0)
[2024-06-02 14:34] LABS: POTASSIUM 4.4 mmol/L (3.5-5.1)
[2024-06-02 14:38] LABS: ALBUMIN 3.5 g/dl (3.4-5.0)
[2024-06-02 14:40] LABS: CALCIUM 9.2 mg/dL (8.5-10.1)
[2024-06-02 14:41] LABS: BLOOD UREA NITROGEN 21.1 mg/dL (7-18); CREATININE 0.8 mg/dL (0.55-1.3)
[2024-06-02 14:43] LABS: TOT PROT 6.1 g/dl (6.4-8.2)
[2024-06-02 14:44] LABS: PHOSPHOROUS 3.8 mg/dL (2.5-4.9)
[2024-06-02 14:46] LABS: BILIRUBIN,TOTAL 0.3 mg/dL (0.2-1)
[2024-06-03] MEDS: LACTULOSE 20 GM/30 ML UDC (FOR ORAL USE ONLY) PO SCH (13:03)
[2024-06-03] MEDS ORDERED: LACTULOSE 20 GM/30 ML UDC (FOR ORAL USE ONLY) PO SCH (14:00)
[2024-06-03] MEDS ORDERED: ALBUTEROL SO4 2.5/IPRATROPIUM 0.5 INH SOL 3 ML VIAL.NEB. NEB PRN (15:19)
[2024-06-03] MEDS ORDERED: guaiFENesin 600 MG TABLET.ER (FP) PO PRN (15:20)
[2024-06-06] MEDS: METHOCARBAMOL 500 MG TABLET PO PRN (21:13)
[2024-06-07] MEDS: TETRAHYDROZOLINE HCL EYE DROPS OU PRN (21:48)
[2024-06-13] MEDS ORDERED: LACTULOSE 20 GM/30 ML UDC (FOR ORAL USE ONLY) PO PRN (11:17)
[2024-06-19] MEDS: ACETAMINOPHEN 325 MG TABLET (FP) PO PRN (21:47)
[2024-06-27] MEDS: BENZOCAINE/MENTHOL (CHLORASEPTIC ) LOZENGE MM PRN (06:17)
[2024-06-29 06:34] VITALS: BP 132/84; PULSE 78; RESP 16; TEMP 98
[2024-06-29] MEDS: NALOXONE (NYS OPIOID OVERDOSE PROGRAM) 4 MG/0.1 ML SPRAY NS SCH (10:21)
== END 2024-06-29 10:22 | disposition home or self-care (01) | DRG 772 ==
LOC: YASAS 12:47 → Y5N 12:50
PROVIDERS: ADMIT Psychiatry & Neurology Pain Medicine; ATTEND Allergy & Immunology
PROC: HZ42ZZZ Group Counseling for Substance Abuse Treatment, Cognitive-Behavioral (ICD-10-PCS; principal; 2024-05-28)
DX: F11.20 Opioid dependence, uncomplicated (principal); F10.20 Alcohol dependence, uncomplicated; F17.210 Nicotine dependence, cigarettes, uncomplicated; F32.A Depression, unspecified; F41.9 Anxiety disorder, unspecified; U07.1 COVID-19; E72.20 Disorder of urea cycle metabolism, unspecified; E78.2 Mixed hyperlipidemia; I10 Essential (primary) hypertension; J43.0 Unilateral pulmonary emphysema [MacLeod's syndrome]; J45.20 Mild intermittent asthma, uncomplicated; K21.9 Gastro-esophageal reflux disease without esophagitis; M17.0 Bilateral primary osteoarthritis of knee; M19.041 Primary osteoarthritis, right hand; M19.042 Primary osteoarthritis, left hand; R41.3 Other amnesia; Z87.820 Personal history of traumatic brain injury; Z88.0 Allergy status to penicillin; Z88.8 Allergy status to other drugs, medicaments and biological substances
CPT/HCPCS: 0241U-QW; 36415; 71046-TC-FY; 80053; 80061; 82140; 82607; 82652; 82746; 83036; 83735; 84100; 84439; 84443; 85025; 85610; 86803

== ENCOUNTER 2024-08-28 12:06 | Inpatient (IN) | payer OTHER ==
[2024-08-28 13:10] VITALS: BMI 19.2
[2024-08-28] MEDS ORDERED: ALBUTEROL SO4 HFA INHALER IH PRN (15:37)
[2024-08-28] MEDS ORDERED: TETRAHYDROZOLINE HCL EYE DROPS OS PRN (15:43)
[2024-08-28] MEDS ORDERED: guaiFENesin 600 MG TABLET.ER (FP) PO PRN (15:58)
[2024-08-28] MEDS ORDERED: BENZOCAINE/MENTHOL (CHLORASEPTIC ) LOZENGE MM PRN (15:58)
[2024-08-28] MEDS ORDERED: LOPERAMIDE HCL 2 MG CAPSULE PO PRN (15:58)
[2024-08-28] MEDS ORDERED: METHOCARBAMOL 500 MG TABLET PO PRN (15:58)
[2024-08-28] MEDS ORDERED: POLYETHYLENE GLYCOL (HEALTHYLAX) 3350 17 GM PACKET PO PRN (15:58)
[2024-08-28] MEDS ORDERED: BISMUTH SUBSALICYLATE 524 MG/30 ML PO PRN (15:58)
[2024-08-28] MEDS ORDERED: IBUPROFEN 400 MG TABLET (FP) PO PRN (15:58)
[2024-08-28] MEDS ORDERED: NICOTINE POLACRILEX 2 MG LOZENGE BC PRN (15:58)
[2024-08-28] MEDS ORDERED: MAGNESIUM HYDROX 2400MG/30ML ORAL SUSPENSION 30 ML CUP PO PRN (15:58)
[2024-08-28] MEDS ORDERED: P-EPHED 60MG/TRIPROLIDI 2.5MG TABLET PO PRN (15:58)
[2024-08-28] MEDS ORDERED: NALOXONE (NARCAN) HCL 4 MG/0.1 ML SPRAY NS PRN (15:58)
[2024-08-28] MEDS ORDERED: DICYCLOMINE HCL 10 MG CAPSULE PO PRN (15:58)
[2024-08-28] MEDS ORDERED: MAG HYDROX/AL HYDROX/SIMETH 30 ML UNIT-DOSE CUP PO PRN (15:58)
[2024-08-28] MEDS ORDERED: ONDANSETRON *ODT* 4 MG TABLET SL PRN (15:58)
[2024-08-28] MEDS ORDERED: ACETAMINOPHEN 325 MG TABLET (FP) PO PRN (15:58)
[2024-08-28] MEDS ORDERED: NICOTINE POLACRILEX 2 MG GUM BUC PRN (15:58)
[2024-08-28] MEDS ORDERED: BENZONATATE 200 MG CAPSULE PO PRN (15:58)
[2024-08-28] MEDS: LISINOPRIL 10 MG TABLET PO SCH (18:56)
[2024-08-28] MEDS: FAMOTIDINE 20 MG TABLET PO SCH (22:26)
[2024-08-28] MEDS: MONTELUKAST NA 10 MG TABLET PO SCH (22:26)
[2024-08-28] MEDS: MELATONIN 5 MG TABLETS PO SCH (22:27)
[2024-08-28] MEDS: THIAMINE 100 MG TABLET PO SCH (22:27)
[2024-08-28] MEDS: BUDESONIDE/FORMETEROL FUMARATE 160/4.5 mcg INHALER IH SCH (22:27)
[2024-08-28] MEDS: ATORVASTATIN CA 10 MG TABLET (FP) PO SCH (22:27)
[2024-08-29] MEDS: IBUPROFEN 600 MG TABLET (FP) PO PRN (05:38)
[2024-08-29 06:11] VITALS: RESP 16
[2024-08-29 09:22] LABS: POTASSIUM 4.2 mmol/L (3.5-5.1)
[2024-08-29 09:28] LABS: HEMATOCRIT 37.6 % (35.4-49); HEMOGLOBIN 12.1 GM/dL (11.7-16.9); MCH 28.9 pg (25.7-33.7); MCHC 32.3 g/dl (32.0-35.9); MEAN CELL VOLUME 89.5 fl (80-96); MEAN PLT VOLUME 9.2 fl (7.5-11.1); PLATELET COUNT 207 10^3/uL (134-434); RDW 14.9 % (11.9-15.9); WHITE BLOOD COUNT 5.8 K/mm3 (4.0-10.0)
[2024-08-29 09:29] LABS: ALBUMIN 3.1 g/dl (3.4-5.0); BLOOD UREA NITROGEN 14.6 mg/dL (7-18); CALCIUM 8.9 mg/dL (8.5-10.1)
[2024-08-29 09:32] LABS: CREATININE 0.8 mg/dL (0.55-1.3)
[2024-08-29 09:33] LABS: BILIRUBIN,TOTAL 0.6 mg/dL (0.2-1)
[2024-08-29 09:34] LABS: TOT PROT 5.7 g/dl (6.4-8.2)
[2024-08-29 09:56] VITALS: BP 105/60; PULSE 70; TEMP 98
[2024-08-29] MEDS ORDERED: PRENATAL VITAMINS W/ FOLIC ACID TABLET (FP) PO SCH (10:00)
[2024-08-29] MEDS ORDERED: ASPIRIN 81 MG CHEWABLE TABLETS PO SCH (10:00)
[2024-08-29 10:42] LABS: HIV INTERPRETATION NEGATIVE (NEGATIVE)
[2024-08-29] MEDS ORDERED: FLU VACCINE (FLULAVAL) PF 45 MCG/0.5 ML SYRINGE 2024-2025 IM ONE (12:00)
== END 2024-08-29 09:57 | disposition home or self-care (01) | DRG 773 ==
LOC: YASAS 12:06 → Y3N 17:38
PROVIDERS: ADMIT Neuromusculoskeletal Medicine & OMM; ATTEND Allergy & Immunology
PROC: HZ2ZZZZ Detoxification Services for Substance Abuse Treatment (ICD-10-PCS; principal; 2024-08-28)
DX: F11.20 Opioid dependence, uncomplicated (principal); F14.20 Cocaine dependence, uncomplicated; F12.20 Cannabis dependence, uncomplicated; F17.210 Nicotine dependence, cigarettes, uncomplicated; F32.A Depression, unspecified; E78.2 Mixed hyperlipidemia; I10 Essential (primary) hypertension; J43.0 Unilateral pulmonary emphysema [MacLeod's syndrome]; J45.20 Mild intermittent asthma, uncomplicated; K21.9 Gastro-esophageal reflux disease without esophagitis; M54.50 Low back pain, unspecified; G89.29 Other chronic pain; Z88.8 Allergy status to other drugs, medicaments and biological substances; Z59.00 Homelessness unspecified; Z88.0 Allergy status to penicillin
CPT/HCPCS: 36415; 80053; 80305; 80307; 85027; 86780; 87389